=== PATIENT | female | born 1990 ===

== ENCOUNTER 2016-09-21 23:11 | Inpatient (IN) | payer MEDICAID, OTHER ==
[2016-09-21 23:12] VITALS: BMI 19.2
[2016-09-21] MEDS ORDERED: Sodium Chloride 0.9% 1,000 ML IV STA (23:46)
[2016-09-21] MEDS ORDERED: DiphenhydrAMINE 50 mg/ml Inj IVP STA (23:46)
[2016-09-21] MEDS ORDERED: Albuterol-Ipratrop 3 mg / 0.5 (3 ml) UD INH STA (23:50)
--- NOTE | 2016-09-21 23:50 | ED PDOC ---
HPI: General Adult Time Seen by Provider: 09/21/16 23:22 Chief Complaint (Nursing): Pain, Chronic Chief Complaint (Provider): LEFT sided peain History Per: Patient History/Exam Limitations: no limitations Onset/Duration Of Symptoms: Days (1), Gradual, Persistent Current Symptoms Are (Timing): Still Present Additional Complaint(s): LEFT shoulder and leg pain for 1 day c/w sickle cell crisis. Cough for 2 days productive of yellow sputum with rhinorrhea. Tactile fever per friend. Pain now intolerable despite ibuprofen and other meds. Pt reports pain is similar to previous episodes. PMD Rashaad Rojas ([place]) Hem/Onc [place] Past Medical History Reviewed: Historical Data, Nursing Documentation, Vital Signs Vital Signs: Last Vital Signs Temp 98.7 F 09/21/16 23:15 Pulse 106 H 09/21/16 23:15 Resp 16 09/21/16 23:15 BP 110/62 09/21/16 23:15 Pulse Ox 95 09/21/16 23:15 - Medical History PMH: Asthma, Sickle Cell Disease Denies: Depression, Multiple Sclerosis - Surgical History Surgical History: Cholecystectomy Other surgeries: Splenectomy. Port-a-cath placement - Family History Family History: States: Other Other Family History: Sickle Cell trait - Social History Current smoker - smoking cessation education provided: Yes Alcohol: Occasional Drugs: Cannabis - Immunization History Hx Tetanus Toxoid Vaccination: No Hx Influenza Vaccination: No Hx Pneumococcal Vaccination: No - Home Medications Home Medications: Ambulatory Orders Medication Instructions Recorded Fluticasone/Salmeterol 250/50 1 puff IH BID PRN 07/09/14 [Advair Diskus 250/50] Albuterol HFA [Ventolin HFA 90 2 puff IH Q6H PRN #0 inhaler 09/21/14 mcg/actuation (8 g)] Folic Acid 1 mg PO DAILY #0 tab 09/21/14 Hydroxyurea [Hydrea] 500 mg PO BID #0 cap 09/21/14 Albuterol Sulfate [Proair 90 mcg IH PRN PRN 06/05/16 Respiclick] Folic Acid 1 mg PO DAILY 06/05/16 Hydroxyurea [Hydrea] 1,000 mg PO DAILY 06/05/16 HYDROmorphone [Dilaudid 2 mg Tab] 2 mg PO Q6 PRN #10 tab 07/02/16 - Allergies Allergies/Adverse Reactions: Allergies Allergy/AdvReac Type Severity Reaction Status Date / Time latex Allergy RASH Verified 06/28/16 04:33 maryanne Allergy RASH Verified 06/28/16 04:33 meperidine HCl [From Demerol] Allergy RASH Verified 06/28/16 04:33 Review of Systems ROS Statement: Except As Marked, All Systems Reviewed And Found Negative (and as per HPI) Constitutional: Positive for: Fever, Chills, Weakness, Malaise ENT: Positive for: Nose Discharge. Negative for: Throat Pain Cardiovascular: Positive for: Chest Pain, Light Headedness. Negative for: Edema Respiratory: Positive for: Cough, Shortness of Breath, Pleuritic Pain, Wheezing. Negative for: Hemoptysis Gastrointestinal: Negative for: Nausea, Vomiting, Abdominal Pain Musculoskeletal: Positive for: Neck Pain, Shoulder Pain, Arm Pain, Back Pain, Leg Pain. Negative for: Hand Pain Physical Exam - Reviewed Nursing Documentation Reviewed: Yes Vital Signs Reviewed: Yes - Physical Exam Appears: Positive for: Non-toxic, In Acute Distress (appears tired) Skin: Positive for: Warm, Dry, Pallor Eye Exam: Positive for: EOMI, PERRL ENT: Negative for: Pharyngeal Erythema, Tonsillar Exudate Neck: Positive for: Painless ROM, Supple Cardiovascular/Chest: Positive for: Chest Non Tender, Tachycardia. Negative for : Murmur Respiratory: Positive for: Wheezing. Negative for: Accessory Muscle Use, Respiratory Distress Gastrointestinal/Abdominal: Positive for: Soft. Negative for: Tenderness Back: Positive for: Normal Inspection. Negative for: Vertebral Tenderness Extremity: Positive for: Normal ROM, Other (poor muscle bulk diffusely). Negative for: Pedal Edema Lymphatic: Negative for: Adenopathy Neurologic/Psych: Positive for: Alert. Negative for: Motor/Sensory Deficits - ECG O2 Sat by Pulse Oximetry: 95 Disposition - Clinical Impression Clinical Impression: Sickle cell crisis - Disposition Disposition: Transfer of Care Disposition Time: 00:00 Condition: STABLE Patient Signed Over To: Charles Gutierrez Handoff Comments: Pending ER workup, reassessment and final disposition
[2016-09-22] MEDS ORDERED: Albuterol-Ipratrop 3 mg / 0.5 (3 ml) UD ONE (00:38)
[2016-09-22] MEDS ORDERED: DiphenhydrAMINE 50 mg/ml Inj ONE ×3 (00:38→08:13)
[2016-09-22 00:45] LABS: BASO # 0.1 K/uL (0.0-0.2); BASO % 1.4 % (0.0-2.0); EOS # 0.3 K/uL (0.0-0.7); EOS % 2.6 % (0.0-4.0); HEMATOCRIT 21.5 % (34.0-47.0); LYMPH % 40.3 % (20.0-40.0); MEAN CELL VOLUME 101.3 fl (81.0-99.0); MEAN CORPUSCULAR HEMOGLOBIN 34.8 pg (27.0-31.0); MEAN CORPUSCULAR HGB CONC 34.4 g/dL (33.0-37.0); MEAN PLATELET VOLUME 7.5 fl (7.2-11.7); MONO # 1.2 K/uL (0.0-0.8); MONO % 12.3 % (0.0-10.0); NEUT # 4.3 K/uL (1.8-7.0); NEUT % 43.4 % (50.0-75.0); NRBC % 0.5 % (0.0-0.0); RED CELL DISTRIBUTION WIDTH 18.6 % (11.5-14.5); WHITE BLOOD COUNT 9.8 K/uL (4.8-10.8)
[2016-09-22 00:51] LABS: ALB/GLOB RATIO 1.4 (1.0-2.1); ALKALINE PHOSPHATASE 56 U/L (38-126); ALT/SGPT 56 U/L (9-52); AST/SGOT 61 U/L (14-36); BILIRUBIN,TOTAL 2.2 mg/dl (0.2-1.3); BLOOD UREA NITROGEN 9 mg/dl (7-17); CALCIUM 8.9 mg/dL (8.4-10.2); CARBON DIOXIDE 27 mmol/L (22-30); CHLORIDE 106 mmol/L (98-107); GFR AFRICAN-AMERICAN > 60; GLUCOSE,RANDOM 93 mg/dL (65-105); MAGNESIUM 2.4 MG/DL (1.6-2.3); PHOSPHOROUS 4.5 mg/dl (2.5-4.5); POTASSIUM 3.3 MMOL/L (3.6-5.0); SODIUM 141 mmol/l (132-148); TOTAL PROTEIN 6.6 G/DL (6.3-8.2)
--- NOTE | 2016-09-22 00:54 | ED PDOC ---
- Laboratory Results Result Diagrams: 09/21/16 00:38 09/21/16 00:38 - ECG O2 Sat by Pulse Oximetry: 95 (RA) Pulse Ox Interpretation: Normal Medical Decision Making Medical Decision Makin:00 Patient transferred over to provider by Dr. Mg. Pending ER workup. Initial Plan: * Dilaudid 2 mg IVP * Reevaluation 530: Pt. having continued sickle cell pain, reticulocyte count high. Patient persistently asking for 2mg IV dilaudid and for benadryl 25mg IV to be pushed before the dilaudid. Will admit to [facility] for pain management and sickle crisis. No PNA seen on CXR. Scribe Attestation: Documented by Hung Martínez, acting as a scribe for Charles Gutierrez MD. Provider Scribe Attestation: All medical record entries made by the Scribe were at my direction and personally dictated by me. I have reviewed the chart and agree that the record accurately reflects my personal performance of the history, physical exam, medical decision making, and the department course for this patient. I have also personally directed, reviewed, and agree with the discharge instructions and disposition. Disposition - Clinical Impression Clinical Impression: Sickle cell crisis - POA Present On Arrival: None - Disposition Disposition: Hospitalized as Observation Patient Disposition Time: 05:00 Condition: STABLE
[2016-09-22] MEDS ORDERED: DiphenhydrAMINE 50 mg/ml Inj IVP STA ×2 (01:47→05:17)
[2016-09-22] MEDS ORDERED: Sodium Chloride 0.9% 1,000 ML IV STA (05:17)
[2016-09-22] MEDS ORDERED: DiphenhydrAMINE 50 mg/ml Inj IVP PRN (06:01)
[2016-09-22] MEDS: Sodium Chloride 0.9% 1,000 ML IV SCH ×3 (07:52→19:35)
--- NOTE | 2016-09-22 07:54 | CP.PCM.HP ---
History of Present Illness - History of Present Illness History of Present Illness: pt admitted for bronchitis and SCC no f/c, nv/d. s/s x 2 days. pt left shoulder nad left leg pain. alco c/o diffuse itchiness. no f/c, n/v/d. Present on Admission - Present on Admission Any Indicators Present on Admission: No Review of Systems - Respiratory Respiratory: As Per HPI, Cough, Chest Congestion - Musculoskeletal Musculoskeletal: As Per HPI, Arthralgias Past Patient History - Infectious Disease Hx of Infectious Diseases: None - Past Medical History & Family History Past Medical History?: Yes - Past Social History Smoking Status: Current Some Days Smoker - CARDIAC Hx Atrial Fibrillation: No Hx Cardia Arrhythmia: No Hx Congestive Heart Failure: No Hx Hypercholesterolemia: No Hx Hypertension: No Hx Mitral Valve Prolapse: No Hx Pacemaker: No Hx Peripheral Edema: No - PULMONARY Hx Asthma: Yes - NEUROLOGICAL Hx Multiple Sclerosis: No - HEENT Hx HEENT Problems: Yes (eyeglasses) - RENAL Hx Chronic Kidney Disease: No Hx Kidney Stones: No - ENDOCRINE/METABOLIC Hx Hyperthyroidism: No Hx Hypothyroidism: No - HEMATOLOGICAL/ONCOLOGICAL Hx Sickle Cell Disease: Yes - INTEGUMENTARY Hx Dermatological Problems: No - MUSCULOSKELETAL/RHEUMATOLOGICAL Hx Arthritis: No Hx Fractures: No Hx Osteoporosis: No Hx Rheumatoid Arthritis: No - GASTROINTESTINAL Hx Crohn's Disease: No Hx Diverticulitis: No Hx Gall Bladder Disease: No Hx Gastritis: No Hx Pancreatitis: No - GENITOURINARY/GYNECOLOGICAL Hx Sexually Transmitted Disorders: No - PSYCHIATRIC Hx Depression: No Hx Substance Use: No - SURGICAL HISTORY Hx Cholecystectomy: Yes - ANESTHESIA Hx Anesthesia: Yes Hx Anesthesia Reactions: No Hx Malignant Hyperthermia: No Meds Allergies/Adverse Reactions: Allergies Allergy/AdvReac Type Severity Reaction Status Date / Time latex Allergy RASH Verified 06/28/16 04:33 maryanne Allergy RASH Verified 06/28/16 04:33 meperidine HCl [From Demerol] Allergy RASH Verified 06/28/16 04:33 Physical Exam - Constitutional Appears: Well, Non-toxic, No Acute Distress - Head Exam Head Exam: ATRAUMATIC, NORMAL INSPECTION, NORMOCEPHALIC - Eye Exam Eye Exam: EOMI, Normal appearance, PERRL Pupil Exam: NORMAL ACCOMODATION, PERRL - ENT Exam ENT Exam: Mucous Membranes Moist, Normal Exam - Neck Exam Neck exam: Positive for: Normal Inspection - Respiratory Exam Respiratory Exam: Clear to Auscultation Bilateral, NORMAL BREATHING PATTERN - Cardiovascular Exam Cardiovascular Exam: REGULAR RHYTHM, RRR, +S1, +S2 - GI/Abdominal Exam GI & Abdominal Exam: Normal Bowel Sounds, Soft. absent: Tenderness - Extremities Exam Extremities exam: Positive for: full ROM, normal capillary refill, normal inspection, pedal pulses present - Back Exam Back exam: NORMAL INSPECTION - Neurological Exam Neurological exam: Alert, CN II-XII Intact, Normal Gait, Oriented x3, Reflexes Normal - Psychiatric Exam Psychiatric exam: Normal Affect, Normal Mood - Skin Skin Exam: Dry, Intact, Normal Color, Warm Results - Vital Signs Recent Vital Signs: Last Vital Signs Temp 98.2 F 09/22/16 07:30 Pulse 88 09/22/16 07:30 Resp 16 09/22/16 07:30 BP 122/65 09/22/16 07:30 Pulse Ox 98 09/22/16 07:30 - Labs Result Diagrams: 09/21/16 00:38 09/21/16 00:38 Assessment & Plan (1) Sickle cell crisis Assessment and Plan: dilaudid, benadryl ivf heme/onc monitor bw Status: Acute (2) Bronchitis Assessment and Plan: zithromax albuterol Status: Acute (3) DVT prophylaxis Assessment and Plan: scd nad aheose ambulation Status: Acute Decision To Admit - Pt Status Changed To: Hospital Disposition Of: Inpatient - Admit Certification Admit to Inpatient:: After my assessment, the patient will require hospitalization for at least two midnights. This is because of the severity of symptoms shown, intensity of services needed, and/or the medical risk in this patient being treated as an outpatient. - . Bed Request Type: Med/Surg Admitting Physician: Kulwinder Vides
[2016-09-22] MEDS ORDERED: Fluticasone-Salmeterol 250-50mcg Diskus IH PRN (07:55)
[2016-09-22] MEDS ORDERED: Naloxone 0.4 mg/ml Inj (Adult) IVP ONE (09:31)
--- NOTE | 2016-09-22 09:33 | RAD ---
HISTORY: sickle cell crisis COMPARISON: No prior. TECHNIQUE: Chest PA and lateral FINDINGS: LUNGS: No change right subclavian MediPort. No focal consolidation PLEURA: No significant pleural effusion identified. No pneumothorax apparent. CARDIOVASCULAR: Normal. OSSEOUS STRUCTURES: No significant abnormalities. VISUALIZED UPPER ABDOMEN: . Re- demonstrated are small calcifications left upper quadrant of the abdomen possibly within the splenic parenchyma OTHER FINDINGS: None. IMPRESSION: No acute cardiopulmonary disease.
[2016-09-22] MEDS: Azithromycin 500 MG in Sodium Chloride 0.9% 250 ML IVPB SCH (13:36)
--- NOTE | 2016-09-22 13:39 | CP.PCM.CON ---
History of Present Illness - History of Present Illness History of Present Illness: 26 year old female with a history of sickle cell anemia admitted with sickle pain crisis and productive cough. The patient reports to increasing pain in her right leg and shoulder. This progressed to pain in her lower pack and hips. She also has been experiencing cough productive for yellow sputum. She feels this is aggravating her sickle cell pain. Past medical history: sickle cell anemia Past surgical history: portacath placement. Family history: Parents have sickle trait. Social history: Denies tobacco, alcohol, and illicit drug use. Allergies: meperidine. Review of systems: All remaining ROS including HEENT, cardiovascular, respiratory, gastrointestinal, genitourinary, musculoskeletal, dermatologic, neurologic, are psychiatric are negative unless mentioned in the HPI. Past Patient History - Infectious Disease Hx of Infectious Diseases: None - Past Medical History & Family History Past Medical History?: Yes - Past Social History Smoking Status: Current Some Days Smoker - CARDIAC Hx Atrial Fibrillation: No Hx Cardia Arrhythmia: No Hx Congestive Heart Failure: No Hx Hypercholesterolemia: No Hx Hypertension: No Hx Mitral Valve Prolapse: No Hx Pacemaker: No Hx Peripheral Edema: No - PULMONARY Hx Asthma: Yes - NEUROLOGICAL Hx Multiple Sclerosis: No - HEENT Hx HEENT Problems: Yes (eyeglasses) - RENAL Hx Chronic Kidney Disease: No Hx Kidney Stones: No - ENDOCRINE/METABOLIC Hx Hyperthyroidism: No Hx Hypothyroidism: No - HEMATOLOGICAL/ONCOLOGICAL Hx AIDS: No Hx Human Immunodeficiency Virus (HIV): No Hx Sickle Cell Disease: Yes - INTEGUMENTARY Hx Dermatological Problems: No - MUSCULOSKELETAL/RHEUMATOLOGICAL Hx Arthritis: No Hx Falls: No Hx Fractures: No Hx Osteoporosis: No Hx Rheumatoid Arthritis: No - GASTROINTESTINAL Hx Crohn's Disease: No Hx Diverticulitis: No Hx Gall Bladder Disease: No Hx Gastritis: No Hx Pancreatitis: No - GENITOURINARY/GYNECOLOGICAL Hx Sexually Transmitted Disorders: No - PSYCHIATRIC Hx Depression: No Hx Substance Use: No - SURGICAL HISTORY Hx Cholecystectomy: Yes - ANESTHESIA Hx Anesthesia: Yes Hx Anesthesia Reactions: No Hx Malignant Hyperthermia: No Meds Allergies/Adverse Reactions: Allergies Allergy/AdvReac Type Severity Reaction Status Date / Time latex Allergy RASH Verified 06/28/16 04:33 [email or web address] Allergy RASH Verified 06/28/16 04:33 meperidine HCl [From Demerol] Allergy RASH Verified 06/28/16 04:33 - Medications Medications: Current Medications Albuterol Sulfate (Albuterol 0.083% Inhal Ethel (2.5 Mg/3 Ml) Ud) 2.5 mg INH RQ4 PRN PRN Reason: Shortness of Breath Diphenhydramine HCl (Benadryl) 25 mg IVP Q6 PRN PRN Reason: itchiness Folic Acid (Folic Acid) 1 mg PO DAILY [facility] Last Admin: 09/22/16 10:03 Dose: 1 mg Hydromorphone HCl (Dilaudid) 2 mg IVP Q3 PRN PRN Reason: Pain, severe (8-10) Last Admin: 09/22/16 13:00 Dose: 2 mg Hydroxyurea (Hydrea) 500 mg PO BID [facility] Last Admin: 09/22/16 10:06 Dose: 500 mg Sodium Chloride (Sodium Chloride 0.9%) 1,000 mls @ 150 mls/hr IV .Q6H40M [facility] Stop: 09/23/16 06:01 Last Admin: 09/22/16 07:52 Dose: 150 mls/hr Azithromycin 500 mg/ Sodium (Chloride) 250 mls @ 250 mls/hr IVPB DAILY [facility] Miconazole Nitrate (Monistat 7 Vaginal Cream) 1 applic VAG HS [facility] Stop: 09/28/16 22:01 Fluticasone/Salmeterol (Advair Diskus 250/50) 1 puff IH BID PRN PRN Reason: sob Physical Exam - Constitutional Appears: Agitated - Head Exam Head Exam: ATRAUMATIC - Eye Exam Eye Exam: Normal appearance - ENT Exam ENT Exam: Mucous Membranes Dry - Respiratory Exam Respiratory Exam: Wheezes, NORMAL BREATHING PATTERN - Cardiovascular Exam Cardiovascular Exam: +S1, +S2 - GI/Abdominal Exam GI & Abdominal Exam: Normal Bowel Sounds - Extremities Exam Extremities exam: Positive for: normal inspection - Neurological Exam Neurological exam: Oriented x3 - Psychiatric Exam Psychiatric exam: Agitated, Anxious - Skin Skin Exam: Warm Results - Vital Signs Recent Vital Signs: Last Vital Signs Temp 97.7 F 09/22/16 10:28 Pulse 102 H 09/22/16 10:28 Resp 17 09/22/16 11:16 BP 108/72 09/22/16 10:28 Pulse Ox 98 09/22/16 11:16 - Labs Result Diagrams: 09/21/16 00:38 09/21/16 00:38 Assessment & Plan (1) Sickle cell crisis Assessment and Plan: IV fluids, pain meds, folic acid, 02 via NC no current transfusion indication Status: Acute (2) Sickle cell anemia Assessment and Plan: outpatient folic acid and hydrea Thank you for this interesting consult. Status: Acute
[2016-09-22] MEDS: DiphenhydrAMINE 50 mg/ml Inj IVP PRN ×2 (14:20→20:43)
[2016-09-22] MEDS: Miconazole 2% Vaginal 7 CREAM VAG SCH ×2 (14:32→22:16)
--- NOTE | 2016-09-22 18:51 | CARD ---
APPROVED REPORT EKG Measurement Heart [id number] <Conclusion> Normal sinus rhythm Normal ECG
[2016-09-22] MEDS: Albuterol 0.083% Inhal Sol (2.5 mg/3 mL) UD INH PRN (19:10)
[2016-09-23] MEDS: Sodium Chloride 0.9% 1,000 ML IV SCH ×2 (00:07→02:24)
[2016-09-23] MEDS: Vitamins A & D Oint UD Foilpak TOP SCH ×3 (00:07→16:06)
[2016-09-23] MEDS: Albuterol 0.083% Inhal Sol (2.5 mg/3 mL) UD INH PRN (01:09)
[2016-09-23] MEDS: DiphenhydrAMINE 50 mg/ml Inj IVP PRN ×4 (02:48→21:13)
--- NOTE | 2016-09-23 07:25 | CP.PCM.PN ---
Subjective - Date & Time of Evaluation Date of Evaluation: 09/23/16 Time of Evaluation: 07:25 - Subjective Subjective: pt still w/ joint pain and tichiness. has cough and had 1x fever last night. no n/v/d. c/o vaginal irritation-started on monostat. tolerating po. requestin pain meds q3h as ordered. Objective - Vital Signs/Intake and Output Vital Signs (last 24 hours): Temp Pulse Resp BP Pulse Ox 98.8 F 100 H 20 104/70 99 09/23/16 06:18 09/23/16 01:08 09/23/16 01:08 09/23/16 01:08 09/23/16 01:08 - Medications Medications: Current Medications Acetaminophen (Tylenol 325mg Tab) 650 mg PO Q4 PRN PRN Reason: Fever >100.4 F Last Admin: 09/23/16 05:18 Dose: 650 mg Albuterol Sulfate (Albuterol 0.083% Inhal Ethel (2.5 Mg/3 Ml) Ud) 2.5 mg INH RQ4 PRN PRN Reason: Shortness of Breath Last Admin: 09/23/16 01:09 Dose: 2.5 mg Diphenhydramine HCl (Benadryl) 25 mg IVP Q6 PRN PRN Reason: itchiness Last Admin: 09/23/16 02:48 Dose: 25 mg Folic Acid (Folic Acid) 1 mg PO DAILY [facility] Last Admin: 09/22/16 10:03 Dose: 1 mg Hydromorphone HCl (Dilaudid) 2 mg IVP Q3 PRN PRN Reason: Pain, severe (8-10) Last Admin: 09/23/16 05:12 Dose: 2 mg Hydroxyurea (Hydrea) 500 mg PO BID [facility] Last Admin: 09/22/16 18:21 Dose: 500 mg Azithromycin 500 mg/ Sodium (Chloride) 250 mls @ 250 mls/hr IVPB DAILY [facility] Last Admin: 09/22/16 13:36 Dose: 250 mls/hr Miconazole Nitrate (Monistat 7 Vaginal Cream) 1 applic VAG HS [facility] Stop: 09/28/16 22:01 Last Admin: 09/22/16 22:16 Dose: Not Given Ondansetron HCl (Zofran Inj) 4 mg IVP Q6 PRN PRN Reason: Nausea/Vomiting Last Admin: 09/23/16 03:24 Dose: 4 mg Fluticasone/Salmeterol (Advair Diskus 250/50) 1 puff IH BID PRN PRN Reason: sob Vitamin A (Vitamin A & D Oint Ud Foilpak) 1 ea TOP BID [facility] Last Admin: 09/23/16 00:07 Dose: 1 ea - Labs Labs: PT 10.8 SECONDS (9.6-11.2) 09/21/16 00:38 INR 1.04 (0.92-1.08) 09/21/16 00:38 APTT 26.0 SECONDS (23.3-32.5) 09/21/16 00:38 - Constitutional Appears: Well, Non-toxic, No Acute Distress - Head Exam Head Exam: ATRAUMATIC, NORMAL INSPECTION, NORMOCEPHALIC - Eye Exam Eye Exam: EOMI, Normal appearance, PERRL Pupil Exam: NORMAL ACCOMODATION, PERRL - ENT Exam ENT Exam: Mucous Membranes Moist, Normal Exam - Neck Exam Neck Exam: Full ROM, Normal Inspection. absent: Lymphadenopathy - Respiratory Exam Respiratory Exam: Clear to Ausculation Bilateral, NORMAL BREATHING PATTERN - Cardiovascular Exam Cardiovascular Exam: REGULAR RHYTHM, RRR, +S1, +S2. absent: Murmur - GI/Abdominal Exam GI & Abdominal Exam: Soft, Normal Bowel Sounds. absent: Tenderness - Extremities Exam Extremities Exam: Full ROM, Normal Capillary Refill, Normal Inspection. absent : Joint Swelling, Pedal Edema - Back Exam Back Exam: NORMAL INSPECTION - Neurological Exam Neurological Exam: Alert, Awake, CN II-XII Intact, Normal Gait, Oriented x3 - Psychiatric Exam Psychiatric exam: Normal Affect, Normal Mood - Skin Skin Exam: Dry, Intact, Normal Color, Warm Assessment and Plan (1) Sickle cell crisis Status: Acute (2) Bronchitis Assessment & Plan: febrile-tyelnol prn, albuterol prn, zithromax Status: Acute (3) DVT prophylaxis Status: Acute - Assessment and Plan (Free Text) Assessment: (1) Sickle cell crisis Assessment and Plan: dilaudid, benadryl ivf heme/onc monitor bw Status: Acute (2) Bronchitis Assessment and Plan: zithromax albuterol Status: Acute (3) DVT prophylaxis Assessment and Plan: scd nad aheose ambulation Status: Acute 4-vaginal itchiness-monostat
[2016-09-23 09:22] LABS: BASO # 0.1 K/uL (0.0-0.2); BASO % 0.6 % (0.0-2.0); EOS # 0.4 K/uL (0.0-0.7); EOS % 2.7 % (0.0-4.0); LYMPH # 5.3 K/uL (1.0-4.3); MEAN CELL VOLUME 97.4 fl (81.0-99.0); MEAN CORPUSCULAR HGB CONC 34.9 g/dL (33.0-37.0); MEAN PLATELET VOLUME 8.1 fl (7.2-11.7); MONO # 1.3 K/uL (0.0-0.8); MONO % 8.7 % (0.0-10.0); NRBC % 0.6 % (0.0-0.0); RED CELL DISTRIBUTION WIDTH 20.2 % (11.5-14.5)
[2016-09-23 09:27] LABS: ALB/GLOB RATIO 1.2 (1.0-2.1); ALKALINE PHOSPHATASE 47 U/L (38-126); ALT/SGPT 58 U/L (9-52); AST/SGOT 73 U/L (14-36); BILIRUBIN,TOTAL 2.6 mg/dl (0.2-1.3); BLOOD UREA NITROGEN 5 mg/dl (7-17); CALCIUM 8.1 mg/dL (8.4-10.2); CARBON DIOXIDE 23 mmol/L (22-30); CHLORIDE 111 mmol/L (98-107); GFR AFRICAN-AMERICAN > 60; GLUCOSE,RANDOM 84 mg/dL (65-105); POTASSIUM 3.8 MMOL/L (3.6-5.0); SODIUM 141 mmol/l (132-148); TOTAL PROTEIN 5.8 G/DL (6.3-8.2)
[2016-09-23 09:32] LABS: HEMATOCRIT 16.7 % (34.0-47.0)
[2016-09-23] MEDS: Azithromycin 500 MG in Sodium Chloride 0.9% 250 ML IVPB SCH (10:38)
--- NOTE | 2016-09-23 17:47 | CP.PCM.PN ---
Subjective - Date & Time of Evaluation Date of Evaluation: 09/23/16 Time of Evaluation: 12:40 - Subjective Subjective: Has pain and itching but improved from yesterday Objective - Vital Signs/Intake and Output Vital Signs (last 24 hours): Temp Pulse Resp BP Pulse Ox 98.4 F 97 H 18 105/69 100 09/23/16 16:32 09/23/16 16:32 09/23/16 16:32 09/23/16 16:32 09/23/16 16:32 - Medications Medications: Current Medications Acetaminophen (Tylenol 325mg Tab) 650 mg PO Q4 PRN PRN Reason: Fever >100.4 F Last Admin: 09/23/16 12:47 Dose: 650 mg Albuterol Sulfate (Albuterol 0.083% Inhal Ethel (2.5 Mg/3 Ml) Ud) 2.5 mg INH RQ4 PRN PRN Reason: Shortness of Breath Last Admin: 09/23/16 01:09 Dose: 2.5 mg Diphenhydramine HCl (Benadryl) 50 mg IVP Q6 PRN PRN Reason: itchiness Last Admin: 09/23/16 15:13 Dose: 50 mg Folic Acid (Folic Acid) 1 mg PO DAILY [facility] Last Admin: 09/23/16 10:38 Dose: 1 mg Hydromorphone HCl (Dilaudid) 2 mg IVP Q3 PRN PRN Reason: Pain, severe (8-10) Last Admin: 09/23/16 16:02 Dose: 2 mg Hydroxyurea (Hydrea) 500 mg PO BID [facility] Last Admin: 09/23/16 16:06 Dose: 500 mg Azithromycin 500 mg/ Sodium (Chloride) 250 mls @ 250 mls/hr IVPB DAILY [facility] Last Admin: 09/23/16 10:38 Dose: 250 mls/hr Miconazole Nitrate (Monistat 7 Vaginal Cream) 1 applic VAG HS [facility] Stop: 09/28/16 22:01 Last Admin: 09/22/16 22:16 Dose: Not Given Ondansetron HCl (Zofran Inj) 4 mg IVP Q6 PRN PRN Reason: Nausea/Vomiting Last Admin: 09/23/16 10:37 Dose: 4 mg Fluticasone/Salmeterol (Advair Diskus 250/50) 1 puff IH BID PRN PRN Reason: sob Vitamin A (Vitamin A & D Oint Ud Foilpak) 1 ea TOP BID [facility] Last Admin: 09/23/16 16:06 Dose: 1 ea - Labs Labs: 09/23/16 09:00 09/23/16 09:00 PT 10.8 SECONDS (9.6-11.2) 09/21/16 00:38 INR 1.04 (0.92-1.08) 09/21/16 00:38 APTT 26.0 SECONDS (23.3-32.5) 09/21/16 00:38 - Head Exam Head Exam: ATRAUMATIC - Eye Exam Eye Exam: Normal appearance - ENT Exam ENT Exam: Mucous Membranes Dry - Respiratory Exam Respiratory Exam: NORMAL BREATHING PATTERN - Cardiovascular Exam Cardiovascular Exam: +S1, +S2 - GI/Abdominal Exam GI & Abdominal Exam: Normal Bowel Sounds - Extremities Exam Extremities Exam: Normal Inspection Assessment and Plan (1) Sickle cell crisis Assessment & Plan: IV fluids, pain meds, folic acid, 02 via NC to receive 2U PRBC Status: Acute (2) Sickle cell anemia Assessment & Plan: folic acid and hydrea Status: Acute
[2016-09-23] MEDS: Miconazole 2% Vaginal 7 CREAM VAG SCH (21:34)
[2016-09-24] MEDS: DiphenhydrAMINE 50 mg/ml Inj IVP PRN ×2 (04:50→20:27)
--- NOTE | 2016-09-24 07:27 | CP.PCM.PN ---
Subjective - Date & Time of Evaluation Date of Evaluation: 09/24/16 Time of Evaluation: 07:26 - Subjective Subjective: m,ore comfortable today and calmer. no f/c, n/v/d. bw pending for after transfusion completed. delya of transfusion r/t antibodies. Objective - Vital Signs/Intake and Output Vital Signs (last 24 hours): Temp Pulse Resp BP Pulse Ox 98.5 F 81 19 103/71 100 09/24/16 06:02 09/24/16 06:02 09/24/16 06:02 09/24/16 06:02 09/24/16 06:02 - Medications Medications: Current Medications Acetaminophen (Tylenol 325mg Tab) 650 mg PO Q4 PRN PRN Reason: Fever >100.4 F Last Admin: 09/23/16 12:47 Dose: 650 mg Albuterol Sulfate (Albuterol 0.083% Inhal Ethel (2.5 Mg/3 Ml) Ud) 2.5 mg INH RQ4 PRN PRN Reason: Shortness of Breath Last Admin: 09/23/16 01:09 Dose: 2.5 mg Diphenhydramine HCl (Benadryl) 50 mg IVP Q6 PRN PRN Reason: itchiness Last Admin: 09/24/16 04:50 Dose: 50 mg Folic Acid (Folic Acid) 1 mg PO DAILY [facility] Last Admin: 09/23/16 10:38 Dose: 1 mg Hydromorphone HCl (Dilaudid) 2 mg IVP Q3 PRN PRN Reason: Pain, severe (8-10) Last Admin: 09/24/16 05:58 Dose: 2 mg Hydroxyurea (Hydrea) 500 mg PO BID [facility] Last Admin: 09/23/16 16:06 Dose: 500 mg Azithromycin 500 mg/ Sodium (Chloride) 250 mls @ 250 mls/hr IVPB DAILY [facility] Last Admin: 09/23/16 10:38 Dose: 250 mls/hr Miconazole Nitrate (Monistat 7 Vaginal Cream) 1 applic VAG HS [facility] Stop: 09/28/16 22:01 Last Admin: 09/23/16 21:34 Dose: 1 applic Ondansetron HCl (Zofran Inj) 4 mg IVP Q6 PRN PRN Reason: Nausea/Vomiting Last Admin: 09/24/16 02:13 Dose: 4 mg Fluticasone/Salmeterol (Advair Diskus 250/50) 1 puff IH BID PRN PRN Reason: sob Vitamin A (Vitamin A & D Oint Ud Foilpak) 1 ea TOP BID [facility] Last Admin: 09/23/16 16:06 Dose: 1 ea - Labs Labs: 09/23/16 09:00 09/23/16 09:00 PT 10.8 SECONDS (9.6-11.2) 09/21/16 00:38 INR 1.04 (0.92-1.08) 09/21/16 00:38 APTT 26.0 SECONDS (23.3-32.5) 09/21/16 00:38 - Constitutional Appears: Well, Non-toxic, No Acute Distress - Head Exam Head Exam: ATRAUMATIC, NORMAL INSPECTION, NORMOCEPHALIC - Eye Exam Eye Exam: EOMI, Normal appearance, PERRL Pupil Exam: NORMAL ACCOMODATION, PERRL - ENT Exam ENT Exam: Mucous Membranes Moist, Normal Exam - Neck Exam Neck Exam: Full ROM, Normal Inspection. absent: Lymphadenopathy - Respiratory Exam Respiratory Exam: Clear to Ausculation Bilateral, NORMAL BREATHING PATTERN - Cardiovascular Exam Cardiovascular Exam: REGULAR RHYTHM, +S1, +S2. absent: Murmur - GI/Abdominal Exam GI & Abdominal Exam: Soft, Normal Bowel Sounds. absent: Tenderness - Extremities Exam Extremities Exam: Full ROM, Normal Capillary Refill, Normal Inspection. absent : Joint Swelling, Pedal Edema - Back Exam Back Exam: NORMAL INSPECTION - Neurological Exam Neurological Exam: Alert, Awake, CN II-XII Intact, Normal Gait, Oriented x3 - Psychiatric Exam Psychiatric exam: Normal Affect, Normal Mood - Skin Skin Exam: Dry, Intact, Normal Color, Warm Assessment and Plan (1) Sickle cell crisis Status: Acute (2) Bronchitis Status: Acute (3) DVT prophylaxis Status: Acute - Assessment and Plan (Free Text) Assessment: (1) Sickle cell crisis Assessment and Plan: dilaudid, benadryl ivf heme/onc monitor bw inprogress 2 units prbc Status: Acute (2) Bronchitis Assessment and Plan: zithromax albuterol Status: Acute (3) DVT prophylaxis Assessment and Plan: scd nad aheose ambulation Status: Acute 4-vaginal itchiness-monostat
[2016-09-24] MEDS: Vitamins A & D Oint UD Foilpak TOP SCH ×2 (08:57→17:22)
[2016-09-24] MEDS: Azithromycin 500 MG in Sodium Chloride 0.9% 250 ML IVPB SCH (10:09)
[2016-09-24 16:47] LABS: MEAN CELL VOLUME 95.1 fl (81.0-99.0); MEAN CORPUSCULAR HEMOGLOBIN 32.8 pg (27.0-31.0); MEAN CORPUSCULAR HGB CONC 34.4 g/dL (33.0-37.0); RED CELL DISTRIBUTION WIDTH 19.1 % (11.5-14.5); WHITE BLOOD COUNT 11.5 K/uL (4.8-10.8)
[2016-09-24] MEDS: Sodium Chloride 0.9% 1,000 ML IV SCH (17:57)
[2016-09-24] MEDS: Miconazole 2% Vaginal 7 CREAM VAG SCH (22:39)
[2016-09-25] MEDS: Sodium Chloride 0.9% 1,000 ML IV SCH ×3 (00:37→13:12)
[2016-09-25] MEDS: DiphenhydrAMINE 50 mg/ml Inj IVP PRN ×3 (03:03→16:06)
[2016-09-25 08:49] LABS: BASO % 0.4 % (0.0-2.0); EOS # 0.5 K/uL (0.0-0.7); EOS % 4.6 % (0.0-4.0); HEMATOCRIT 25.4 % (34.0-47.0); LYMPH # 3.3 K/uL (1.0-4.3); MEAN CELL VOLUME 94.9 fl (81.0-99.0); MEAN CORPUSCULAR HEMOGLOBIN 33.6 pg (27.0-31.0); MEAN CORPUSCULAR HGB CONC 35.4 g/dL (33.0-37.0); MEAN PLATELET VOLUME 7.9 fl (7.2-11.7); MONO # 1.1 K/uL (0.0-0.8); MONO % 9.5 % (0.0-10.0); NEUT # 6.8 K/uL (1.8-7.0); NEUT % 57.5 % (50.0-75.0); PLATELET COUNT 412 K/uL (130-400); RED CELL DISTRIBUTION WIDTH 20.3 % (11.5-14.5); WHITE BLOOD COUNT 11.8 K/uL (4.8-10.8)
[2016-09-25 08:50] VITALS: RESP 20; O2SAT 93
[2016-09-25] MEDS: Vitamins A & D Oint UD Foilpak TOP SCH ×2 (08:56→16:42)
[2016-09-25] MEDS: Azithromycin 500 MG in Sodium Chloride 0.9% 250 ML IVPB SCH (08:56)
[2016-09-25 09:05] LABS: ALB/GLOB RATIO 1.3 (1.0-2.1); ALKALINE PHOSPHATASE 52 U/L (38-126); ALT/SGPT 71 U/L (9-52); AST/SGOT 75 U/L (14-36); BILIRUBIN,TOTAL 2.4 mg/dl (0.2-1.3); CALCIUM 8.5 mg/dL (8.4-10.2); CARBON DIOXIDE 24 mmol/L (22-30); CHLORIDE 106 mmol/L (98-107); GFR AFRICAN-AMERICAN > 60; GLUCOSE,RANDOM 81 mg/dL (65-105); POTASSIUM 3.5 MMOL/L (3.6-5.0); SODIUM 140 mmol/l (132-148)
[2016-09-25 09:14] LABS: BLOOD UREA NITROGEN < 2 mg/dl (7-17)
--- NOTE | 2016-09-25 09:35 | CP.PCM.DIS ---
Provider - Provider Date of Admission: 09/22/16 19:28 Attending physician: Kulwinder Vides MD Time Spent in preparation of Discharge (in minutes): 15 Diagnosis - Discharge Diagnosis (1) Sickle cell crisis Status: Acute (2) Bronchitis Status: Acute (3) DVT prophylaxis Status: Acute Hospital Course - Lab Results Lab Results: Most Recent Lab Values WBC 11.8 K/uL (4.8-10.8) H 09/25/16 07:30 RBC 2.68 Mil/uL (3.80-5.20) L 09/25/16 07:30 Hgb 9.0 g/dL (12.0-16.0) L 09/25/16 07:30 Hct 25.4 % (34.0-47.0) L 09/25/16 07:30 MCV 94.9 fl (81.0-99.0) 09/25/16 07:30 MCH 33.6 pg (27.0-31.0) H 09/25/16 07:30 MCHC 35.4 g/dL (33.0-37.0) 09/25/16 07:30 RDW 20.3 % (11.5-14.5) H 09/25/16 07:30 Plt Count 412 K/uL (130-400) H 09/25/16 07:30 MPV 7.9 fl (7.2-11.7) 09/25/16 07:30 Neut % (Auto) 57.5 % (50.0-75.0) 09/25/16 07:30 Lymph % (Auto) 28.0 % (20.0-40.0) 09/25/16 07:30 [place] % (Auto) 9.5 % (0.0-10.0) 09/25/16 07:30 Eos % (Auto) 4.6 % (0.0-4.0) H 09/25/16 07:30 Baso % (Auto) 0.4 % (0.0-2.0) 09/25/16 07:30 Neut # 6.8 K/uL (1.8-7.0) 09/25/16 07:30 Lymph # 3.3 K/uL (1.0-4.3) 09/25/16 07:30 [place] # 1.1 K/uL (0.0-0.8) H 09/25/16 07:30 Eos # 0.5 K/uL (0.0-0.7) 09/25/16 07:30 Baso # 0.0 K/uL (0.0-0.2) 09/25/16 07:30 Retic Count 12.0 % (0.5-1.5) H 09/25/16 07:30 PT 10.8 SECONDS (9.6-11.2) 09/21/16 00:38 INR 1.04 (0.92-1.08) 09/21/16 00:38 APTT 26.0 SECONDS (23.3-32.5) 09/21/16 00:38 Sodium 140 mmol/l (132-148) 09/25/16 07:30 Potassium 3.5 MMOL/L (3.6-5.0) L 09/25/16 07:30 Chloride 106 mmol/L (98-107) 09/25/16 07:30 Carbon Dioxide 24 mmol/L (22-30) 09/25/16 07:30 Anion Gap 14 (10-20) 09/25/16 07:30 BUN < 2 mg/dl (7-17) L 09/25/16 07:30 Creatinine 0.4 mg/dL (0.7-1.2) L 09/25/16 07:30 Est GFR ( Amer) > 60 09/25/16 07:30 Est GFR (Non-Af Amer) > 60 09/25/16 07:30 Random Glucose 81 mg/dL (65-105) 09/25/16 07:30 Lactic Acid < 0.5 MMOL/L (0.7-2.1) L 09/21/16 00:38 Calcium 8.5 mg/dL (8.4-10.2) 09/25/16 07:30 Phosphorus 4.5 mg/dl (2.5-4.5) 09/21/16 00:38 Magnesium 2.4 MG/DL (1.6-2.3) H 09/21/16 00:38 Total Bilirubin 2.4 mg/dl (0.2-1.3) H 09/25/16 07:30 AST 75 U/L (14-36) H 09/25/16 07:30 ALT 71 U/L (9-52) H D 09/25/16 07:30 Alkaline Phosphatase 52 U/L (38-126) 09/25/16 07:30 Troponin I < 0.0120 ng/mL (0.00-0.120) 09/21/16 00:38 Total Protein 6.0 G/DL (6.3-8.2) L 09/25/16 07:30 Albumin 3.3 g/dL (3.5-5.0) L 09/25/16 07:30 Globulin 2.6 gm/dL (2.2-3.9) 09/25/16 07:30 Albumin/Globulin Ratio 1.3 (1.0-2.1) 09/25/16 07:30 Influenza Typ A,B (EIA) Negative for flu a/b (NEGATIVE) 09/21/16 00:38 Blood Type O POSITIVE 09/23/16 11:32 Antibody Screen Negative 09/23/16 11:32 Crossmatch See Detail 09/23/16 11:32 BBK History Checked Patient has bt 09/23/16 11:32 Discharge Exam - Head Exam Head Exam: ATRAUMATIC, NORMAL INSPECTION, NORMOCEPHALIC - Eye Exam Eye Exam: EOMI, Normal appearance, PERRL Pupil Exam: NORMAL ACCOMODATION, PERRL - Respiratory Exam Respiratory Exam: Clear to PA & Lateral, NORMAL BREATHING PATTERN, UNREMARKABLE - Cardiovascular Exam Cardiovascular Exam: REGULAR RHYTHM, RRR, +S1, +S2 - GI/Abdominal Exam GI & Abdominal Exam: Normal Bowel Sounds, Soft, Unremarkable - Extremities Exam Extremities exam: full ROM, normal capillary refill, normal inspection, pedal pulses present - Neurological Exam Neurological exam: Alert, CN II-XII Intact, Normal Gait, Oriented x3, Reflexes Normal - Psychiatric Exam Psychiatric exam: Normal Affect, Normal Mood - Skin Skin Exam: Dry, Intact, Normal Color, Warm Discharge Plan - Discharge Medications Prescriptions: HYDROmorphone [Dilaudid] 2 mg PO Q6 PRN #10 tab PRN Reason: Pain, Severe (8-10) - Follow Up Plan Condition: STABLE Disposition: HOME/ ROUTINE Instructions: Sickle Cell Crisis (DC) Additional Instructions: f/u this provider tuesday, heme/onc as directed, rted prn, meds per med red final dx-bronchitis, scc, dehydration, hypokalemia Referrals: Kulwinder Vides MD [Staff Provider] - Rashaad Rojas DNP, TOOTH CLERK [Advanced Practice Nurse] -
[2016-09-25] MEDS ORDERED: Potassium Chloride 20 mEq ER Tab PO ONE (09:40)
[2016-09-25 11:13] LABS: EOSINOPHIL 6 % (0-7); NEUTROPHIL 58 % (42-75); NUCLEATED RED BLOOD CELL 4 % (0-0); TOTAL CELLS COUNTED 100
[2016-09-25 11:18] LABS: GIANT PLATELETS PRESENT; LARGE PLATELETS PRESENT; SPHEROCYTES SLIGHT
[2016-09-25 16:59] VITALS: BP 144/81; PULSE 74; TEMP 98.9
== END 2016-09-25 18:04 | disposition home or self-care (01) | DRG 395 ==
LOC: H.ER 23:11 → H.ERHOLD 09-22 05:52 → H.MEDSURG1 09-22 09:08 → OBSVTOIN 09-22 19:28
PROVIDERS: ADMIT Family Medicine; ATTEND Family Medicine
DX: D57.00 Hb-SS disease with crisis, unspecified (principal); E86.0 Dehydration; E87.6 Hypokalemia; J40 Bronchitis, not specified as acute or chronic; F17.200 Nicotine dependence, unspecified, uncomplicated; J45.909 Unspecified asthma, uncomplicated; Z91.040 Latex allergy status; Z91.018 Allergy to other foods

== ENCOUNTER 2016-11-26 16:24 | Inpatient (IN) | payer MEDICAID ==
[2016-11-26 16:25] VITALS: BMI 19.2
[2016-11-26] MEDS ORDERED: DiphenhydrAMINE 50 mg/ml Inj IVP STA ×2 (17:07→19:01)
[2016-11-26] MEDS ORDERED: Sodium Chloride 0.9% 1,000 ML IV STA (17:19)
--- NOTE | 2016-11-26 17:27 | ED PDOC ---
Upper Extremity Pain/Injury Time Seen by Provider: 11/26/16 16:53 Chief Complaint (Nursing): Upper Extremity Problem/Injury Chief Complaint (Provider): Upper Extremity Problem History Per: Patient History/Exam Limitations: no limitations Onset/Duration Of Symptoms: Days (1x) Current Symptoms Are (Timing): Still Present Severity: Moderate Additional Complaint(s): 26 year old female with a pertinent medical history of sickle cell disease and asthma presents to the ED with complaints of right shoulder pain, that radiates to her chest and down her back, which started last night and has been constant and gradually worsening since then. She reports taking ibuprofen with minimal relief and that her symptoms feel similar to previous episodes of sickle cell crisis. She reports that for the past 2x days, she has had a sore throat and a runny nose with subjective fevers and chills. She denies having any other medical complaints. PMD: Gaetano Vides MD and Rashaad Rojas APN Past Medical History Reviewed: Historical Data, Nursing Documentation, Vital Signs Vital Signs: Last Vital Signs Temp 98.8 F 11/26/16 16:31 Pulse 93 H 11/26/16 16:31 Resp 18 11/26/16 16:31 BP 105/59 L 11/26/16 16:31 Pulse Ox 100 11/26/16 16:31 - Medical History PMH: Asthma, Sickle Cell Disease Denies: Alzheimer's Disease, Anemia, Anxiety, Arthritis, Atrial Fibrillation , Bipolar Disorder, Bronchitis, CAD, Cardia Arrhythmia, CHF, COPD, Crohn's Disease, Dementia, Depression, Diabetes, Diverticulitis, Emphysema, Fractures, Gastritis, Gall Bladder Disease, Hepatitis, HIV, HTN, Hypercholesterolemia, Hyperthyroidism, Hypothyroidism, Kidney Stones, Migraine, Mitral Valve Prolapse , Multiple Sclerosis, Osteoporosis, Pancreatitis, Paranoia, Parkinson's Disease , Peripheral Edema, Pneumonia, Post Traumatic Stress Disorder, Pulmonary Embolism, Chronic Kidney Disease, Rheumatoid Arthritis, Schizophrenia, Seizures , Sexually Transmitted Disease, Sleep Apnea, TIA Other PMH: above negative history pulled from previous charts - Surgical History Surgical History: Cholecystectomy Denies: Appendectomy, CABG, Carotid Endarterectomy, Coronary Stent, Pacemaker , Tonsillectomy Other surgeries: above negative history pulled from previous charts - Family History Family History: States: Unknown Family Hx - Social History Current smoker - smoking cessation education provided: No Alcohol: None Drugs: Denies - Immunization History Hx Tetanus Toxoid Vaccination: No Hx Influenza Vaccination: No Hx Pneumococcal Vaccination: No - Home Medications Home Medications: Ambulatory Orders Medication Instructions Recorded Fluticasone/Salmeterol 250/50 1 puff IH BID PRN 07/09/14 [Advair Diskus 250/50] Hydroxyurea [Hydrea] 500 mg PO BID #0 cap 09/21/14 Folic Acid 1 mg PO DAILY 06/05/16 HYDROmorphone [Dilaudid] 2 mg PO Q6 PRN #10 tab 09/25/16 - Allergies Allergies/Adverse Reactions: Allergies Allergy/AdvReac Type Severity Reaction Status Date / Time latex Allergy RASH Verified 06/28/16 04:33 maryanne Allergy RASH Verified 06/28/16 04:33 meperidine HCl [From Demerol] Allergy RASH Verified 06/28/16 04:33 Review of Systems ROS Statement: Except As Marked, All Systems Reviewed And Found Negative (and as per HPI) Constitutional: Positive for: Fever (subjective), Chills ENT: Positive for: Nose Discharge (non bloody), Throat Pain Musculoskeletal: Positive for: Shoulder Pain (right shoulder pain which radiates to her chest and down her back) Physical Exam - Reviewed Nursing Documentation Reviewed: Yes Vital Signs Reviewed: Yes - Physical Exam Appears: Positive for: Non-toxic, In Acute Distress (mild painful distress, slim build and appears younger than given age) Head Exam: Positive for: ATRAUMATIC, NORMOCEPHALIC Skin: Positive for: Warm, Dry, Pallor Eye Exam: Positive for: EOMI, PERRL, Scleral icterus ENT: Positive for: Tonsillar Swelling (bilaterally enlarged and erythematous tonsills), Other (dry mucous membranes). Negative for: Tonsillar Exudate Neck: Positive for: Painless ROM, Supple Cardiovascular/Chest: Positive for: Regular Rate, Rhythm. Negative for: Edema Respiratory: Positive for: Normal Breath Sounds. Negative for: Respiratory Distress Pulses-Radial (R): 2+ Gastrointestinal/Abdominal: Positive for: Soft. Negative for: Tenderness, Distended Back: Positive for: Normal Inspection. Negative for: Muscle Spasm Extremity: Positive for: Other (right shoulder: no deformity, no swelling. Limited passive and active range of motion due to pain. 5/5 strength in right hand, light touch in tact. (+) poor muscle bulk diffusely). Negative for: Deformity ('), Swelling Lymphatic: Negative for: Adenopathy Neurologic/Psych: Positive for: Alert, Oriented (3x). Negative for: Motor/ Sensory Deficits - Laboratory Results Result Diagrams: 11/27/16 06:00 11/27/16 06:00 - ECG O2 Sat by Pulse Oximetry: 100 (RA) Pulse Ox Interpretation: Normal Medical Decision Making Medical Decision Makin:53 Initial impression: 26 year old female with sickle cell crisis due to anemia and dehydration. Necrosis of the right shoulder use to electrolyte abnormality. Initial plan: * XRay chest 2 views * XRay shoulder right * benadryl 25mg IVP * dilaudid 1mg IV * IV NS 1,000ml IV 1,000mls/hr * influenza AB * rapid strep group A antigen * urine * bloodwork * reevaluation Labs demonstrate leukocytosis, anemia and elevated sed rate. On reeval at 1900 pt still reporting pain. CXR with no acute findings (no infiltrate no effusion) RIGHT shoulder: No fx/dislocation PAULINO Rojas CLINICAL DATA ANALYST for Dr Vides for admission for sickle cell crisis. Scribe Attestation: Documented by Monica Gonzalez, acting as a scribe for Nazia Mg MD. Provider Scribe Attestation: All medical record entries made by the Scribe were at my direction and personally dictated by me. I have reviewed the chart and agree that the record accurately reflects my personal performance of the history, physical exam, medical decision making, and the department course for this patient. I have also personally directed, reviewed, and agree with the discharge instructions and disposition. Disposition - Clinical Impression Clinical Impression: Sickle cell crisis Counseled Patient/Family Regarding: Studies Performed, Diagnosis - Disposition Disposition Time: 19:00 Condition: SERIOUS - Pt Status Changed To: Hospital Disposition Of: Inpatient - Admit Certification Admit to Inpatient:: After my assessment, the patient will require hospitalization for at least two midnights. This is because of the severity of symptoms shown, intensity of services needed, and/or the medical risk in this patient being treated as an outpatient. - POA Present On Arrival: None
[2016-11-26] MEDS ORDERED: DiphenhydrAMINE 50 mg/ml Inj ONE (17:29)
[2016-11-26] MEDS ORDERED: HYDROmorphone 0.5 mg/0.5 ml ISec ONE (17:30)
[2016-11-26 17:53] LABS: BASO # 0.1 K/uL (0.0-0.2); BASO % 0.2 % (0.0-2.0); EOS # 0.3 K/uL (0.0-0.7); EOS % 0.9 % (0.0-4.0); LYMPH # 3.5 K/uL (1.0-4.3); MEAN CORPUSCULAR HEMOGLOBIN 33.6 pg (27.0-31.0); MEAN CORPUSCULAR HGB CONC 33.6 g/dL (33.0-37.0); MEAN PLATELET VOLUME 8.2 fl (7.2-11.7); MONO % 6.8 % (0.0-10.0); NEUT # 23.6 K/uL (1.8-7.0); NEUT % 80.1 % (50.0-75.0); NRBC % 0.1 % (0.0-0.0); RBC 2.68 Mil/uL (3.80-5.20); RED CELL DISTRIBUTION WIDTH 18.4 % (11.5-14.5); WHITE BLOOD COUNT 29.5 K/uL (4.8-10.8)
[2016-11-26 17:55] LABS: SQUAMOUS EPITHIAL 1 /hpf (0-5); URINE BILIRUBIN NEGATIVE (NEGATIVE); URINE BLOOD NEGATIVE (NEGATIVE); URINE CLARITY CLEAR (Clear); URINE COLOR YELLOW (YELLOW); URINE GLUCOSE (UA) NEG (Normal); URINE LEUKOCYTE ESTERASE NEG Leu/uL (Negative); URINE NITRATE NEGATIVE (NEGATIVE); URINE PROTEIN NEGATIVE (NEGATIVE); URINE UROBILINOGEN 0.2-1.0 mg/dL (0.2-1.0)
[2016-11-26 18:07] LABS: ALB/GLOB RATIO 1.7 (1.0-2.1); ALBUMIN 4.7 g/dL (3.5-5.0); ALT/SGPT 44 U/L (9-52); AST/SGOT 39 U/L (14-36); BLOOD UREA NITROGEN 8 mg/dl (7-17); CALCIUM 9.3 mg/dL (8.4-10.2); GFR AFRICAN-AMERICAN > 60; GFR NON-AFRICAN AMERICAN > 60
[2016-11-26 18:42] LABS: BARBITURATES, UR NEGATIVE (NEGATIVE); BENZODIAZEPINES, UR NEGATIVE (NEGATIVE); OPIATES, UR NEGATIVE (NEGATIVE); PHENCYCLIDINE, UR NEGATIVE (NEGATIVE)
[2016-11-26] MEDS ORDERED: Fluticasone-Salmeterol 250-50mcg Diskus IH PRN (19:35)
[2016-11-26] MEDS ORDERED: Benzocaine/Menthol (Cepacol) Lozenge PO PRN (19:35)
[2016-11-26] MEDS: Sodium Chloride 0.9% 1,000 ML IV SCH (20:15)
[2016-11-26] MEDS: DiphenhydrAMINE 50 mg/ml Inj IVP PRN (22:46)
[2016-11-27] MEDS: Sodium Chloride 0.9% 1,000 ML IV SCH ×3 (02:00→17:57)
[2016-11-27] MEDS: DiphenhydrAMINE 50 mg/ml Inj IVP PRN ×3 (05:10→18:03)
--- NOTE | 2016-11-27 07:56 | CP.PCM.HP ---
History of Present Illness - History of Present Illness History of Present Illness: pt admitted for sore throat and SCC. no f/c, n/v/d. pt states that pain and st started thurs night into yesterday am. bw noted. cxr reviewed and pendign final report. b/l tonsil edematous, w/ exudate Present on Admission - Present on Admission Any Indicators Present on Admission: No Review of Systems - EENT Nose/Mouth/Throat: As Per HPI, Sore Throat - Musculoskeletal Musculoskeletal: As Per HPI, Arthralgias Past Patient History - Infectious Disease Hx of Infectious Diseases: None - Past Medical History & Family History Past Medical History?: Yes - Past Social History Smoking Status: Light Smoker < 10 Cigarettes Daily - CARDIAC Hx Cardiac Disorders: No Hx Atrial Fibrillation: No Hx Cardia Arrhythmia: No Hx Congestive Heart Failure: No Hx Hypercholesterolemia: No Hx Hypertension: No Hx Mitral Valve Prolapse: No Hx Pacemaker: No Hx Peripheral Edema: No - PULMONARY Hx Respiratory Disorders: Yes Hx Asthma: Yes Hx Bronchitis: No Hx Chronic Obstructive Pulmonary Disease (COPD): No Hx Emphysema: No Hx Pneumonia: No Hx Pulmonary Embolism: No Hx Sleep Apnea: No - NEUROLOGICAL Hx Neurological Disorder: No Hx Alzheimer's Disease: No Hx Dementia: No Hx Migraine: No Hx Multiple Sclerosis: No Hx Parkinson's Disease: No Hx Seizures: No Hx Transient Ischemic Attacks (TIA): No - HEENT Hx HEENT Problems: Yes (eyeglasses) - RENAL Hx Chronic Kidney Disease: No - ENDOCRINE/METABOLIC Hx Endocrine Disorders: No Hx Hyperthyroidism: No Hx Hypothyroidism: No - HEMATOLOGICAL/ONCOLOGICAL Hx Blood Disorders: Yes Hx Anemia: No Hx Human Immunodeficiency Virus (HIV): No Hx Sickle Cell Disease: Yes - INTEGUMENTARY Hx Dermatological Problems: No - MUSCULOSKELETAL/RHEUMATOLOGICAL Hx Musculoskeletal Disorders: No Hx Falls: No - GASTROINTESTINAL Hx Gastrointestinal Disorders: No Hx Crohn's Disease: No Hx Diverticulitis: No Hx Gall Bladder Disease: No Hx Gastritis: No Hx Pancreatitis: No - GENITOURINARY/GYNECOLOGICAL Hx Genitourinary Disorders: No Hx Sexually Transmitted Disorders: No - PSYCHIATRIC Hx Psychophysiologic Disorder: No Hx Anxiety: No Hx Bipolar Disorder: No Hx Depression: No Hx Paranoia: No Hx Post Traumatic Stress Disorder: No Hx Schizophrenia: No - SURGICAL HISTORY Hx Surgeries: Yes Hx Appendectomy: No Hx Carotid Endarterectomy: No Hx Cholecystectomy: Yes Hx Coronary Artery Bypass Graft: No Hx Coronary Stent: No Hx Tonsillectomy: No - ANESTHESIA Hx Anesthesia: Yes Hx Anesthesia Reactions: No Hx Malignant Hyperthermia: No Meds Allergies/Adverse Reactions: Allergies Allergy/AdvReac Type Severity Reaction Status Date / Time latex Allergy RASH Verified 06/28/16 04:33 maryanne Allergy RASH Verified 06/28/16 04:33 meperidine HCl [From Demerol] Allergy RASH Verified 06/28/16 04:33 Physical Exam - Constitutional Appears: Well, Non-toxic, No Acute Distress - Head Exam Head Exam: ATRAUMATIC, NORMAL INSPECTION, NORMOCEPHALIC - Eye Exam Eye Exam: EOMI, Normal appearance, PERRL Pupil Exam: NORMAL ACCOMODATION, PERRL - ENT Exam ENT Exam: Mucous Membranes Moist, Normal Exam Additional comments: throat w/ exudate, erythema - Neck Exam Neck exam: Positive for: Normal Inspection - Respiratory Exam Respiratory Exam: Clear to Auscultation Bilateral, NORMAL BREATHING PATTERN - Cardiovascular Exam Cardiovascular Exam: REGULAR RHYTHM, RRR - GI/Abdominal Exam GI & Abdominal Exam: Normal Bowel Sounds, Soft. absent: Tenderness - Extremities Exam Extremities exam: Positive for: full ROM, normal capillary refill, normal inspection, pedal pulses present - Back Exam Back exam: NORMAL INSPECTION - Neurological Exam Neurological exam: Alert, CN II-XII Intact, Normal Gait, Oriented x3, Reflexes Normal - Psychiatric Exam Psychiatric exam: Normal Affect, Normal Mood - Skin Skin Exam: Dry, Intact, Normal Color, Warm Results - Vital Signs Recent Vital Signs: Last Vital Signs Temp 97.9 F 11/27/16 07:30 Pulse 75 11/27/16 07:30 Resp 18 11/27/16 07:30 BP 104/68 11/27/16 07:30 Pulse Ox 98 11/27/16 07:30 - Labs Result Diagrams: 11/26/16 17:15 11/26/16 17:15 Assessment & Plan (1) Pharyngitis Assessment and Plan: augmentin Status: Acute (2) DVT prophylaxis Assessment and Plan: scd and aehose ambulation Status: Acute (3) Sickle cell crisis Assessment and Plan: dilaudid, iv or pr heme/onc f/u b/w ivf benadryl Status: Acute Decision To Admit - Pt Status Changed To: Hospital Disposition Of: Inpatient - Admit Certification Admit to Inpatient:: After my assessment, the patient will require hospitalization for at least two midnights. This is because of the severity of symptoms shown, intensity of services needed, and/or the medical risk in this patient being treated as an outpatient. - . Bed Request Type: Med/Surg Admitting Physician: Kulwinder Vides
[2016-11-27 08:13] LABS: BASO # 0.1 K/uL (0.0-0.2); BASO % 0.2 % (0.0-2.0); EOS # 0.4 K/uL (0.0-0.7); EOS % 1.6 % (0.0-4.0); HEMOGLOBIN 7.7 g/dL (12.0-16.0); LYMPH # 3.1 K/uL (1.0-4.3); LYMPH % 11.6 % (20.0-40.0); MEAN CELL VOLUME 98.9 fl (81.0-99.0); MEAN CORPUSCULAR HEMOGLOBIN 33.5 pg (27.0-31.0); MEAN CORPUSCULAR HGB CONC 33.9 g/dL (33.0-37.0); MEAN PLATELET VOLUME 8.5 fl (7.2-11.7); MONO # 1.6 K/uL (0.0-0.8); MONO % 6.2 % (0.0-10.0); NEUT # 21.2 K/uL (1.8-7.0); NEUT % 80.4 % (50.0-75.0); NRBC % 0.2 % (0.0-0.0); RBC 2.3 Mil/uL (3.80-5.20); RED CELL DISTRIBUTION WIDTH 17.9 % (11.5-14.5); WHITE BLOOD COUNT 26.3 K/uL (4.8-10.8)
[2016-11-27 08:40] LABS: ALB/GLOB RATIO 1.6 (1.0-2.1); ALBUMIN 4.1 g/dL (3.5-5.0); ALT/SGPT 47 U/L (9-52); AST/SGOT 41 U/L (14-36); BLOOD UREA NITROGEN 10 mg/dl (7-17); CALCIUM 8.4 mg/dL (8.4-10.2); GFR AFRICAN-AMERICAN > 60; GFR NON-AFRICAN AMERICAN > 60
--- NOTE | 2016-11-27 10:54 | RAD ---
PROCEDURE: Radiographs of the Right Shoulder HISTORY: pain COMPARISON: Comparison made with prior radiographs of the right shoulder dated 02/04/2014. FINDINGS: BONES: Normal. No fracture. JOINTS: Normal. Glenohumeral and acromioclavicular joints preserved. No osteoarthritis. SOFT TISSUES: Normal. OTHER FINDINGS: In situ right subclavian MediPort with tip in the SVC IMPRESSION: Normal radiographs of the right shoulder. In situ right subclavian MediPort as above
--- NOTE | 2016-11-27 10:56 | RAD ---
HISTORY: chest pain sickle cell COMPARISON: Comparison chest 09/22/2016 TECHNIQUE: Chest PA and lateral FINDINGS: LUNGS: No active pulmonary disease. PLEURA: No significant pleural effusion identified. No pneumothorax apparent. CARDIOVASCULAR: Normal. OSSEOUS STRUCTURES: No significant abnormalities. VISUALIZED UPPER ABDOMEN: Again noted is a calcification in the left upper quadrant of the abdomen unchanged from prior exam OTHER FINDINGS: None. IMPRESSION: No active disease.
[2016-11-27] MEDS: Amoxicillin-Clav 875-125 mg Tab PO SCH ×2 (11:33→20:14)
[2016-11-28] MEDS: DiphenhydrAMINE 50 mg/ml Inj IVP PRN ×4 (00:42→19:55)
--- NOTE | 2016-11-28 03:34 | CP.PCM.CON ---
History of Present Illness - History of Present Illness History of Present Illness: 26 year old female with a history of sickle cell anemia admitted with sickle pain crisis and sore throat. The patient reports to increasing pain exacerbated by sore throat. This progressed to pain in her lower pack and hips. She denies shortness of pain and chest pain. Past medical history: sickle cell anemia Past surgical history: portacath placement. Family history: Parents have sickle trait. Social history: Denies tobacco, alcohol, and illicit drug use. Allergies: meperidine. Review of systems: All remaining ROS including HEENT, cardiovascular, respiratory, gastrointestinal, genitourinary, musculoskeletal, dermatologic, neurologic, are psychiatric are negative unless mentioned in the HPI. Past Patient History - Infectious Disease Hx of Infectious Diseases: None - Past Medical History & Family History Past Medical History?: Yes - Past Social History Alcohol: None Drugs: Denies - CARDIAC Hx Atrial Fibrillation: No Hx Cardia Arrhythmia: No Hx Congestive Heart Failure: No Hx Hypercholesterolemia: No Hx Hypertension: No Hx Mitral Valve Prolapse: No Hx Pacemaker: No Hx Peripheral Edema: No - PULMONARY Hx Asthma: Yes Hx Bronchitis: No Hx Chronic Obstructive Pulmonary Disease (COPD): No Hx Emphysema: No Hx Pneumonia: No Hx Pulmonary Embolism: No Hx Sleep Apnea: No - NEUROLOGICAL Hx Alzheimer's Disease: No Hx Dementia: No Hx Migraine: No Hx Multiple Sclerosis: No Hx Parkinson's Disease: No Hx Seizures: No Hx Transient Ischemic Attacks (TIA): No - HEENT Hx HEENT Problems: Yes (eyeglasses) - RENAL Hx Chronic Kidney Disease: No Hx Kidney Stones: No - ENDOCRINE/METABOLIC Hx Hyperthyroidism: No Hx Hypothyroidism: No - HEMATOLOGICAL/ONCOLOGICAL Hx Anemia: No Hx Human Immunodeficiency Virus (HIV): No Hx Sickle Cell Disease: Yes - INTEGUMENTARY Hx Dermatological Problems: No - MUSCULOSKELETAL/RHEUMATOLOGICAL Hx Arthritis: No Hx Fractures: No Hx Osteoporosis: No Hx Rheumatoid Arthritis: No - GASTROINTESTINAL Hx Crohn's Disease: No Hx Diverticulitis: No Hx Gall Bladder Disease: No Hx Gastritis: No Hx Pancreatitis: No - GENITOURINARY/GYNECOLOGICAL Hx Sexually Transmitted Disorders: No - PSYCHIATRIC Hx Anxiety: No Hx Bipolar Disorder: No Hx Depression: No Hx Paranoia: No Hx Post Traumatic Stress Disorder: No Hx Schizophrenia: No - SURGICAL HISTORY Hx Appendectomy: No Hx Carotid Endarterectomy: No Hx Cholecystectomy: Yes Hx Coronary Artery Bypass Graft: No Hx Coronary Stent: No Hx Tonsillectomy: No - ANESTHESIA Hx Anesthesia: Yes Hx Anesthesia Reactions: No Hx Malignant Hyperthermia: No Meds Allergies/Adverse Reactions: Allergies Allergy/AdvReac Type Severity Reaction Status Date / Time latex Allergy RASH Verified 06/28/16 04:33 [email or web address] Allergy RASH Verified 06/28/16 04:33 meperidine HCl [From Demerol] Allergy RASH Verified 06/28/16 04:33 - Medications Medications: Current Medications Amoxicillin/Clavulanate Potassium (Augmentin 875 Mg-125 Mg Tab) 1 tab PO Q12 [facility] Last Admin: 11/27/16 20:14 Dose: 1 tab Benzocaine/Menthol (Cepacol Sore Throat) 1 junior PO Q2 PRN PRN Reason: Sore Throat Last Admin: 11/27/16 09:33 Dose: 1 junior Diphenhydramine HCl (Benadryl) 50 mg IVP Q6 PRN PRN Reason: Itching / Pruritus Last Admin: 11/28/16 00:42 Dose: 50 mg Folic Acid (Folic Acid) 1 mg PO DAILY [facility] Last Admin: 11/27/16 09:33 Dose: 1 mg Hydrocortisone (Cortizone 1% Cream) 1 applic TOP TID PRN PRN Reason: Itching / Pruritus Hydromorphone HCl (Dilaudid) 2 mg IVP Q3H PRN PRN Reason: Pain, severe (8-10) Last Admin: 11/28/16 00:35 Dose: 2 mg Hydromorphone HCl (Dilaudid) 2 mg PO Q6 PRN PRN Reason: Pain, moderate (4-7) Hydroxyurea (Hydrea) 500 mg PO BID [facility] Last Admin: 11/27/16 17:57 Dose: 500 mg Fluticasone/Salmeterol (Advair Diskus 250/50) 1 puff IH BID PRN PRN Reason: sob Physical Exam - Head Exam Head Exam: ATRAUMATIC - Eye Exam Eye Exam: Normal appearance - ENT Exam ENT Exam: Mucous Membranes Dry - Respiratory Exam Respiratory Exam: NORMAL BREATHING PATTERN - Cardiovascular Exam Cardiovascular Exam: +S1, +S2 - GI/Abdominal Exam GI & Abdominal Exam: Normal Bowel Sounds - Extremities Exam Extremities exam: Positive for: normal inspection - Neurological Exam Neurological exam: Oriented x3 - Psychiatric Exam Psychiatric exam: Normal Affect, Normal Mood - Skin Skin Exam: Warm Results - Vital Signs Recent Vital Signs: Last Vital Signs Temp 99.6 F 11/27/16 17:03 Pulse 91 H 11/27/16 17:03 Resp 20 11/27/16 17:03 BP 99/62 L 11/27/16 17:03 Pulse Ox 94 L 11/27/16 17:03 - Labs Result Diagrams: 11/27/16 06:00 11/27/16 06:00 Labs: Laboratory Results - last 24 hr 11/27/16 11/27/16 06:00 06:00 WBC 26.3 H RBC 2.30 L Hgb 7.7 L Hct 22.8 L MCV 98.9 MCH 33.5 H MCHC 33.9 RDW 17.9 H Plt Count 462 H MPV 8.5 Neut % (Auto) 80.4 H Lymph % (Auto) 11.6 L [place] % (Auto) 6.2 Eos % (Auto) 1.6 Baso % (Auto) 0.2 Neut # 21.2 H Lymph # 3.1 [place] # 1.6 H Eos # 0.4 Baso # 0.1 Sodium 141 Potassium 3.9 Chloride 108 H Carbon Dioxide 24 Anion Gap 13 BUN 10 Creatinine 0.6 L Est GFR ( Amer) > 60 Est GFR (Non-Af Amer) > 60 Random Glucose 78 Calcium 8.4 Total Bilirubin 2.7 H AST 41 H ALT 47 Alkaline Phosphatase 58 Total Protein 6.7 Albumin 4.1 Globulin 2.6 Albumin/Globulin Ratio 1.6 Assessment & Plan (1) Sickle cell pain crisis Assessment and Plan: IV fluids, pain meds, folic acid, hydrea, 02 via [place] Status: Acute (2) Leukocytosis Assessment and Plan: on antibiotics Status: Acute (3) Iron overload due to repeated red blood cell transfusions Assessment and Plan: outpatient chelation Status: Acute (4) Sickle cell anemia Assessment and Plan: folic acid and hydrea Thank you for this interesting consult. Status: Acute
[2016-11-28 07:56] LABS: ALB/GLOB RATIO 1.5 (1.0-2.1); ALBUMIN 3.9 g/dL (3.5-5.0); ALT/SGPT 38 U/L (9-52); AST/SGOT 43 U/L (14-36); BLOOD UREA NITROGEN 5 mg/dl (7-17); CALCIUM 8.6 mg/dL (8.4-10.2); GFR AFRICAN-AMERICAN > 60; GFR NON-AFRICAN AMERICAN > 60
[2016-11-28] MEDS: Amoxicillin-Clav 875-125 mg Tab PO SCH ×2 (08:44→21:08)
[2016-11-28 09:37] LABS: BASO # 0.1 K/uL (0.0-0.2); BASO % 0.8 % (0.0-2.0); EOS % 5.3 % (0.0-4.0); HEMOGLOBIN 6.7 g/dL (12.0-16.0); LYMPH % 21.5 % (20.0-40.0); MEAN CORPUSCULAR HGB CONC 35.5 g/dL (33.0-37.0); MEAN PLATELET VOLUME 8.3 fl (7.2-11.7); MONO # 1.6 K/uL (0.0-0.8); MONO % 8.4 % (0.0-10.0); NRBC % 0.3 % (0.0-0.0); RBC 1.98 Mil/uL (3.80-5.20); RED CELL DISTRIBUTION WIDTH 18.1 % (11.5-14.5); WHITE BLOOD COUNT 18.7 K/uL (4.8-10.8)
[2016-11-28 09:38] LABS: MEAN CELL VOLUME 95.7 fl (81.0-99.0)
--- NOTE | 2016-11-28 19:11 | CP.PCM.PN ---
Subjective - Date & Time of Evaluation Date of Evaluation: 11/28/16 Time of Evaluation: 09:00 - Subjective Subjective: still w/ body pain on r side. c/o malaise. hgb 6.7 to be transfused 1 unit prb per heme/onc. other labs and c/s noted. afebrile. Objective - Vital Signs/Intake and Output Vital Signs (last 24 hours): Temp Pulse Resp BP Pulse Ox 98.3 F 91 H 20 109/77 97 11/28/16 17:00 11/28/16 17:00 11/28/16 17:00 11/28/16 17:00 11/28/16 17:00 - Medications Medications: Current Medications Amoxicillin/Clavulanate Potassium (Augmentin 875 Mg-125 Mg Tab) 1 tab PO Q12 [facility] Last Admin: 11/28/16 08:44 Dose: 1 tab Benzocaine/Menthol (Cepacol Sore Throat) 1 junior PO Q2 PRN PRN Reason: Sore Throat Last Admin: 11/27/16 09:33 Dose: 1 junior Diphenhydramine HCl (Benadryl) 50 mg IVP Q6 PRN PRN Reason: Itching / Pruritus Last Admin: 11/28/16 12:48 Dose: 50 mg Folic Acid (Folic Acid) 1 mg PO DAILY [facility] Last Admin: 11/28/16 08:45 Dose: 1 mg Hydrocortisone (Cortizone 1% Cream) 1 applic TOP TID PRN PRN Reason: Itching / Pruritus Last Admin: 11/28/16 03:57 Dose: 1 applic Hydromorphone HCl (Dilaudid) 2 mg IVP Q3H PRN PRN Reason: Pain, severe (8-10) Last Admin: 11/28/16 16:24 Dose: 2 mg Hydromorphone HCl (Dilaudid) 2 mg PO Q6 PRN PRN Reason: Pain, moderate (4-7) Hydroxyurea (Hydrea) 500 mg PO BID [facility] Last Admin: 11/28/16 17:10 Dose: 500 mg Fluticasone/Salmeterol (Advair Diskus 250/50) 1 puff IH BID PRN PRN Reason: sob - Labs Labs: 11/28/16 09:00 11/28/16 06:00 - Constitutional Appears: Well, Non-toxic, No Acute Distress - Head Exam Head Exam: ATRAUMATIC, NORMAL INSPECTION, NORMOCEPHALIC - Eye Exam Eye Exam: EOMI, Normal appearance, PERRL Pupil Exam: NORMAL ACCOMODATION, PERRL - ENT Exam ENT Exam: Mucous Membranes Moist, Normal Exam - Neck Exam Neck Exam: Full ROM, Normal Inspection. absent: Lymphadenopathy - Respiratory Exam Respiratory Exam: Clear to Ausculation Bilateral, NORMAL BREATHING PATTERN - Cardiovascular Exam Cardiovascular Exam: REGULAR RHYTHM, RRR, +S1, +S2. absent: Murmur - GI/Abdominal Exam GI & Abdominal Exam: Soft, Normal Bowel Sounds. absent: Tenderness - Extremities Exam Extremities Exam: Full ROM, Normal Capillary Refill, Normal Inspection, Tenderness. absent: Joint Swelling, Pedal Edema - Back Exam Back Exam: NORMAL INSPECTION - Neurological Exam Neurological Exam: Alert, Awake, CN II-XII Intact, Normal Gait, Oriented x3 - Psychiatric Exam Psychiatric exam: Normal Affect, Normal Mood - Skin Skin Exam: Dry, Intact, Normal Color, Warm Assessment and Plan (1) Pharyngitis Status: Acute (2) DVT prophylaxis Status: Acute (3) Sickle cell crisis Status: Acute - Assessment and Plan (Free Text) Assessment: (1) Pharyngitis Assessment and Plan: augmentin Status: Acute (2) DVT prophylaxis Assessment and Plan: scd and aehose ambulation Status: Acute (3) Sickle cell crisis Assessment and Plan: dilaudid, iv or pr heme/onc f/u b/w ivf benadryl 1 unit prb today, follow hgb
--- NOTE | 2016-11-29 00:25 | CP.PCM.PN ---
Subjective - Date & Time of Evaluation Date of Evaluation: 11/28/16 Time of Evaluation: 17:00 - Subjective Subjective: Has pain S/p 1U PRBC Objective - Vital Signs/Intake and Output Vital Signs (last 24 hours): Temp Pulse Resp BP Pulse Ox 98.3 F 91 H 20 109/77 97 11/28/16 17:00 11/28/16 17:00 11/28/16 17:00 11/28/16 17:00 11/28/16 17:00 - Medications Medications: Current Medications Amoxicillin/Clavulanate Potassium (Augmentin 875 Mg-125 Mg Tab) 1 tab PO Q12 [facility] Last Admin: 11/28/16 21:08 Dose: 1 tab Benzocaine/Menthol (Cepacol Sore Throat) 1 junior PO Q2 PRN PRN Reason: Sore Throat Last Admin: 11/27/16 09:33 Dose: 1 junior Diphenhydramine HCl (Benadryl) 50 mg IVP Q6 PRN PRN Reason: Itching / Pruritus Last Admin: 11/28/16 19:55 Dose: 50 mg Folic Acid (Folic Acid) 1 mg PO DAILY [facility] Last Admin: 11/28/16 08:45 Dose: 1 mg Hydrocortisone (Cortizone 1% Cream) 1 applic TOP TID PRN PRN Reason: Itching / Pruritus Last Admin: 11/28/16 03:57 Dose: 1 applic Hydromorphone HCl (Dilaudid) 2 mg IVP Q3H PRN PRN Reason: Pain, severe (8-10) Last Admin: 11/28/16 23:29 Dose: 2 mg Hydromorphone HCl (Dilaudid) 2 mg PO Q6 PRN PRN Reason: Pain, moderate (4-7) Hydroxyurea (Hydrea) 500 mg PO BID [facility] Last Admin: 11/28/16 17:10 Dose: 500 mg Fluticasone/Salmeterol (Advair Diskus 250/50) 1 puff IH BID PRN PRN Reason: sob - Labs Labs: 11/28/16 09:00 11/28/16 06:00 - Head Exam Head Exam: ATRAUMATIC - Eye Exam Eye Exam: Normal appearance - ENT Exam ENT Exam: Mucous Membranes Dry - Respiratory Exam Respiratory Exam: NORMAL BREATHING PATTERN - Cardiovascular Exam Cardiovascular Exam: +S1, +S2 - GI/Abdominal Exam GI & Abdominal Exam: Normal Bowel Sounds - Extremities Exam Extremities Exam: Normal Inspection Assessment and Plan (1) Sickle cell pain crisis Assessment & Plan: IV fluids, 02 via NC, folic acid, rodriguez meds s/p 1U PRBC Status: Acute (2) Leukocytosis Assessment & Plan: on antibiotics Status: Acute (3) Iron overload due to repeated red blood cell transfusions Assessment & Plan: outpatient chelation Status: Acute (4) Sickle cell anemia Assessment & Plan: folic acid and hydrea Status: Acute
[2016-11-29] MEDS: DiphenhydrAMINE 50 mg/ml Inj IVP PRN ×4 (02:48→21:47)
[2016-11-29 07:05] LABS: HEMOGLOBIN 8.3 g/dL (12.0-16.0); MEAN CELL VOLUME 94.1 fl (81.0-99.0); MEAN CORPUSCULAR HEMOGLOBIN 32.6 pg (27.0-31.0); MEAN CORPUSCULAR HGB CONC 34.6 g/dL (33.0-37.0); RBC 2.54 Mil/uL (3.80-5.20); RED CELL DISTRIBUTION WIDTH 18.2 % (11.5-14.5); WHITE BLOOD COUNT 14.6 K/uL (4.8-10.8)
--- NOTE | 2016-11-29 07:21 | CP.PCM.PN ---
Subjective - Date & Time of Evaluation Date of Evaluation: 11/29/16 Time of Evaluation: 07:20 - Subjective Subjective: pt still w/ r sided body pain described as pressure/ache. no f/c, n/v/d. hgb 8.3 and wbc 14 today after 1 unit prbc yesterday. case d/c at length w/ dr ornelas yesterday. Objective - Vital Signs/Intake and Output Vital Signs (last 24 hours): Temp Pulse Resp BP Pulse Ox 98.2 F 91 H 18 117/66 95 11/29/16 00:00 11/29/16 00:00 11/29/16 00:00 11/29/16 00:00 11/29/16 00:00 - Medications Medications: Current Medications Amoxicillin/Clavulanate Potassium (Augmentin 875 Mg-125 Mg Tab) 1 tab PO Q12 [facility] Last Admin: 11/28/16 21:08 Dose: 1 tab Benzocaine/Menthol (Cepacol Sore Throat) 1 junior PO Q2 PRN PRN Reason: Sore Throat Last Admin: 11/27/16 09:33 Dose: 1 junior Diphenhydramine HCl (Benadryl) 50 mg IVP Q6 PRN PRN Reason: Itching / Pruritus Last Admin: 11/29/16 02:48 Dose: 50 mg Folic Acid (Folic Acid) 1 mg PO DAILY [facility] Last Admin: 11/28/16 08:45 Dose: 1 mg Hydrocortisone (Cortizone 1% Cream) 1 applic TOP TID PRN PRN Reason: Itching / Pruritus Last Admin: 11/28/16 03:57 Dose: 1 applic Hydromorphone HCl (Dilaudid) 2 mg IVP Q3H PRN PRN Reason: Pain, severe (8-10) Last Admin: 11/29/16 06:43 Dose: 2 mg Hydromorphone HCl (Dilaudid) 2 mg PO Q6 PRN PRN Reason: Pain, moderate (4-7) Hydroxyurea (Hydrea) 500 mg PO BID [facility] Last Admin: 11/28/16 17:10 Dose: 500 mg Fluticasone/Salmeterol (Advair Diskus 250/50) 1 puff IH BID PRN PRN Reason: sob - Labs Labs: 11/29/16 06:40 11/28/16 06:00 - Constitutional Appears: Well, Non-toxic, No Acute Distress - Head Exam Head Exam: ATRAUMATIC, NORMAL INSPECTION, NORMOCEPHALIC - Eye Exam Eye Exam: EOMI, Normal appearance, PERRL Pupil Exam: NORMAL ACCOMODATION, PERRL - ENT Exam ENT Exam: Mucous Membranes Moist, Normal Exam - Neck Exam Neck Exam: Full ROM, Normal Inspection. absent: Lymphadenopathy - Respiratory Exam Respiratory Exam: Clear to Ausculation Bilateral, NORMAL BREATHING PATTERN - Cardiovascular Exam Cardiovascular Exam: REGULAR RHYTHM, RRR, +S1, +S2. absent: Murmur - GI/Abdominal Exam GI & Abdominal Exam: Soft, Normal Bowel Sounds. absent: Tenderness - Extremities Exam Extremities Exam: Full ROM, Normal Capillary Refill, Normal Inspection, Tenderness. absent: Joint Swelling, Pedal Edema - Back Exam Back Exam: NORMAL INSPECTION - Neurological Exam Neurological Exam: Alert, Awake, CN II-XII Intact, Normal Gait, Oriented x3 - Psychiatric Exam Psychiatric exam: Normal Affect, Normal Mood - Skin Skin Exam: Dry, Intact, Normal Color, Warm Assessment and Plan (1) Pharyngitis Status: Acute (2) DVT prophylaxis Status: Acute (3) Sickle cell crisis Status: Acute - Assessment and Plan (Free Text) Assessment: (1) Pharyngitis Assessment and Plan: augmentin improving Status: Acute (2) DVT prophylaxis Assessment and Plan: scd and aehose ambulation Status: Acute (3) Sickle cell crisis Assessment and Plan: dilaudid, iv or pr heme/onc f/u b/w ivf benadryl 1 unit prb yesterday, follow hgb-improved today, wbc trending down
[2016-11-29] MEDS: Amoxicillin-Clav 875-125 mg Tab PO SCH ×2 (09:22→21:47)
--- NOTE | 2016-11-29 13:03 | PQF GENQUE ---
This form is a permanent part of the medical record 11/29/16 Rashaad Rojas APN, Please clarify the type of asthma. Documentation of a history of Asthma. Medication includes: Advair Diskus. Clarification of your documentation is requested to better reflect the severity of illness and intensity of treatment of your patient. Indicators present [] Specify: [] [] Specify: [] [] Specify: [] [] Specify: [] Location in the medical record that reflects the above clinical findings: [] Treatment Provided: [] PHYSICIAN'S RESPONSE [] Childhood [] Cough variant [] Exercise induced [] Late onset [x] Mild intermittent [] Mild persistent [] Moderate persistent [] Severe persistent [] With bronchitis(please clarify acuity of bronchitis) [] With chronic lung disease (please document specific chronic lung disease ) [] Other (please specify) [] Clinically unable to determine [] Unknown Based on your medical judgment of the clinical indicators outlined above please clarify the following: [] Practitioner response [] If unable to determine, please check the box, sign and date. Present On Admission (POA) Indicator: [x] Present at the time of admission chronic intermittent [] Not present at the time of admission [] Clinically Undetermined In responding to this query, please exercise your independent professional judgment. The fact that a question is asked does not imply that any particular answer is desired or expected. Thank you for your clarification on this documentation. If you have any questions please call:ext [phone] * Thank you, Flores Parr RN CDMP MTDD
[2016-11-29] MEDS: Sodium Chloride 0.9% 1,000 ML IV SCH ×3 (15:57→23:37)
[2016-11-30] MEDS: Sodium Chloride 0.9% 1,000 ML IV SCH ×4 (03:16→21:30)
[2016-11-30] MEDS: DiphenhydrAMINE 50 mg/ml Inj IVP PRN ×4 (03:55→22:11)
[2016-11-30 07:38] LABS: BASO % 0.4 % (0.0-2.0); EOS % 8.9 % (0.0-4.0); HEMOGLOBIN 8.2 g/dL (12.0-16.0); LYMPH # 3.7 K/uL (1.0-4.3); LYMPH % 32.7 % (20.0-40.0); MEAN CELL VOLUME 95.6 fl (81.0-99.0); MEAN CORPUSCULAR HGB CONC 34.5 g/dL (33.0-37.0); MEAN PLATELET VOLUME 8.2 fl (7.2-11.7); MONO # 1.2 K/uL (0.0-0.8); MONO % 10.8 % (0.0-10.0); NEUT # 5.3 K/uL (1.8-7.0); NEUT % 47.2 % (50.0-75.0); NRBC % 0.3 % (0.0-0.0); RBC 2.49 Mil/uL (3.80-5.20); WHITE BLOOD COUNT 11.3 K/uL (4.8-10.8)
[2016-11-30] MEDS: Amoxicillin-Clav 875-125 mg Tab PO SCH ×2 (08:46→21:14)
--- NOTE | 2016-11-30 09:17 | CP.PCM.PN ---
Subjective - Date & Time of Evaluation Date of Evaluation: 11/30/16 Time of Evaluation: 09:16 - Subjective Subjective: still w/ c/o bodyaches. no f/c, n/v/d. wbc 11, hgb 8.[address], cough/ congestion. Objective - Vital Signs/Intake and Output Vital Signs (last 24 hours): Temp Pulse Resp BP Pulse Ox 98.5 F 73 18 103/64 96 11/30/16 08:46 11/30/16 08:46 11/30/16 08:46 11/30/16 08:46 11/30/16 08:46 - Medications Medications: Current Medications Amoxicillin/Clavulanate Potassium (Augmentin 875 Mg-125 Mg Tab) 1 tab PO Q12 [facility] Last Admin: 11/30/16 08:46 Dose: 1 tab Benzocaine/Menthol (Cepacol Sore Throat) 1 junior PO Q2 PRN PRN Reason: Sore Throat Last Admin: 11/27/16 09:33 Dose: 1 junior Diphenhydramine HCl (Benadryl) 50 mg IVP Q6 PRN PRN Reason: Itching / Pruritus Last Admin: 11/30/16 03:55 Dose: 50 mg Folic Acid (Folic Acid) 1 mg PO DAILY [facility] Last Admin: 11/30/16 08:47 Dose: 1 mg Hydrocortisone (Cortizone 1% Cream) 1 applic TOP TID PRN PRN Reason: Itching / Pruritus Last Admin: 11/29/16 17:05 Dose: 1 applic Hydromorphone HCl (Dilaudid) 2 mg IVP Q3H PRN PRN Reason: Pain, severe (8-10) Last Admin: 11/30/16 08:44 Dose: 2 mg Hydromorphone HCl (Dilaudid) 2 mg PO Q6 PRN PRN Reason: Pain, moderate (4-7) Hydroxyurea (Hydrea) 500 mg PO BID [facility] Last Admin: 11/30/16 08:47 Dose: 500 mg Sodium Chloride (Sodium Chloride 0.9%) 1,000 mls @ 150 mls/hr IV .Q6H40M [facility] Stop: 11/30/16 11:52 Last Admin: 11/30/16 06:26 Dose: 150 mls/hr Fluticasone/Salmeterol (Advair Diskus 250/50) 1 puff IH BID PRN PRN Reason: sob - Labs Labs: 11/30/16 07:13 11/28/16 06:00 - Constitutional Appears: Well, Non-toxic, No Acute Distress - Head Exam Head Exam: ATRAUMATIC, NORMAL INSPECTION, NORMOCEPHALIC - Eye Exam Eye Exam: EOMI, Normal appearance, PERRL Pupil Exam: NORMAL ACCOMODATION, PERRL - ENT Exam ENT Exam: Mucous Membranes Moist, Normal Exam - Neck Exam Neck Exam: Full ROM, Normal Inspection. absent: Lymphadenopathy - Respiratory Exam Respiratory Exam: Clear to Ausculation Bilateral, NORMAL BREATHING PATTERN - Cardiovascular Exam Cardiovascular Exam: REGULAR RHYTHM, RRR, +S1, +S2. absent: Murmur - GI/Abdominal Exam GI & Abdominal Exam: Soft, Normal Bowel Sounds. absent: Tenderness - Extremities Exam Extremities Exam: Full ROM, Normal Capillary Refill, Normal Inspection, Tenderness. absent: Joint Swelling, Pedal Edema - Back Exam Back Exam: NORMAL INSPECTION - Neurological Exam Neurological Exam: Alert, Awake, CN II-XII Intact, Normal Gait, Oriented x3 - Psychiatric Exam Psychiatric exam: Normal Affect, Normal Mood - Skin Skin Exam: Dry, Intact, Normal Color, Warm Assessment and Plan (1) Pharyngitis Status: Acute (2) DVT prophylaxis Status: Acute (3) Sickle cell crisis Status: Acute - Assessment and Plan (Free Text) Assessment: (1) Pharyngitis Assessment and Plan: augmentin improving Status: Acute (2) DVT prophylaxis Assessment and Plan: scd and aehose ambulation Status: Acute (3) Sickle cell crisis Assessment and Plan: dilaudid, iv or po heme/onc f/u b/w ivf benadryl s/p 1 unit prb, follow hgb-, wbc trending down d/c planning
[2016-12-01] MEDS: Sodium Chloride 0.9% 1,000 ML IV SCH ×2 (04:05→10:09)
[2016-12-01] MEDS: DiphenhydrAMINE 50 mg/ml Inj IVP PRN ×2 (04:11→11:01)
[2016-12-01 07:52] LABS: BASO # 0.1 K/uL (0.0-0.2); BASO % 1.2 % (0.0-2.0); EOS # 0.9 K/uL (0.0-0.7); EOS % 7.3 % (0.0-4.0); HEMOGLOBIN 8.4 g/dL (12.0-16.0); LYMPH # 3.5 K/uL (1.0-4.3); LYMPH % 29.1 % (20.0-40.0); MEAN CELL VOLUME 96.4 fl (81.0-99.0); MEAN CORPUSCULAR HEMOGLOBIN 33.1 pg (27.0-31.0); MEAN CORPUSCULAR HGB CONC 34.3 g/dL (33.0-37.0); MEAN PLATELET VOLUME 8.2 fl (7.2-11.7); MONO % 8.8 % (0.0-10.0); NEUT # 6.4 K/uL (1.8-7.0); NEUT % 53.6 % (50.0-75.0); NRBC % 0.4 % (0.0-0.0); RBC 2.52 Mil/uL (3.80-5.20); RED CELL DISTRIBUTION WIDTH 18.3 % (11.5-14.5); WHITE BLOOD COUNT 11.9 K/uL (4.8-10.8)
--- NOTE | 2016-12-01 09:26 | CP.PCM.PN ---
Subjective - Date & Time of Evaluation Date of Evaluation: 11/30/16 Time of Evaluation: 18:00 - Subjective Subjective: Feeling better, less pain. Objective - Vital Signs/Intake and Output Vital Signs (last 24 hours): Temp Pulse Resp BP Pulse Ox 97.9 F 75 20 112/64 96 12/01/16 00:25 12/01/16 00:25 12/01/16 00:25 12/01/16 00:25 12/01/16 00:25 - Medications Medications: Current Medications Amoxicillin/Clavulanate Potassium (Augmentin 875 Mg-125 Mg Tab) 1 tab PO Q12 [facility] Last Admin: 11/30/16 21:14 Dose: 1 tab Benzocaine/Menthol (Cepacol Sore Throat) 1 junior PO Q2 PRN PRN Reason: Sore Throat Last Admin: 11/27/16 09:33 Dose: 1 junior Diphenhydramine HCl (Benadryl) 50 mg IVP Q6 PRN PRN Reason: Itching / Pruritus Last Admin: 12/01/16 04:11 Dose: 50 mg Folic Acid (Folic Acid) 1 mg PO DAILY [facility] Last Admin: 11/30/16 08:47 Dose: 1 mg Hydrocortisone (Cortizone 1% Cream) 1 applic TOP TID PRN PRN Reason: Itching / Pruritus Last Admin: 11/30/16 18:45 Dose: 1 applic Hydromorphone HCl (Dilaudid) 2 mg IVP Q3H PRN PRN Reason: Pain, severe (8-10) Last Admin: 12/01/16 07:53 Dose: 2 mg Hydromorphone HCl (Dilaudid) 2 mg PO Q6 PRN PRN Reason: Pain, moderate (4-7) Hydroxyurea (Hydrea) 500 mg PO BID [facility] Last Admin: 11/30/16 16:07 Dose: 500 mg Sodium Chloride (Sodium Chloride 0.9%) 1,000 mls @ 150 mls/hr IV .Q6H40M [facility] Stop: 12/01/16 21:21 Last Admin: 12/01/16 04:05 Dose: 150 mls/hr Fluticasone/Salmeterol (Advair Diskus 250/50) 1 puff IH BID PRN PRN Reason: sob - Labs Labs: 12/01/16 06:05 11/28/16 06:00 - Head Exam Head Exam: ATRAUMATIC - Eye Exam Eye Exam: Normal appearance - ENT Exam ENT Exam: Mucous Membranes Dry - Respiratory Exam Respiratory Exam: NORMAL BREATHING PATTERN - Cardiovascular Exam Cardiovascular Exam: +S1, +S2 - GI/Abdominal Exam GI & Abdominal Exam: Normal Bowel Sounds - Extremities Exam Extremities Exam: Normal Inspection Assessment and Plan (1) Sickle cell pain crisis Assessment & Plan: IV fluids, pain meds, folic acid, 02 via NC s/p PRBC transfusion Status: Acute (2) Leukocytosis Assessment & Plan: improved on ABX Status: Acute (3) Iron overload due to repeated red blood cell transfusions Assessment & Plan: outpatient chelation Status: Acute (4) Sickle cell anemia Assessment & Plan: outpatient folic acid and hydrea Status: Acute
[2016-12-01] MEDS: Amoxicillin-Clav 875-125 mg Tab PO SCH (09:59)
--- NOTE | 2016-12-01 10:35 | CP.PCM.DIS ---
Provider - Provider Date of Admission: 11/26/16 19:00 Attending physician: Kulwinder Vides MD Time Spent in preparation of Discharge (in minutes): 15 Diagnosis - Discharge Diagnosis (1) Pharyngitis Status: Acute (2) DVT prophylaxis Status: Acute (3) Sickle cell crisis Status: Acute Hospital Course - Lab Results Lab Results: Most Recent Lab Values WBC 11.9 K/uL (4.8-10.8) H 12/01/16 06:05 RBC 2.52 Mil/uL (3.80-5.20) L 12/01/16 06:05 Hgb 8.4 g/dL (12.0-16.0) L 12/01/16 06:05 Hct 24.3 % (34.0-47.0) L 12/01/16 06:05 MCV 96.4 fl (81.0-99.0) 12/01/16 06:05 MCH 33.1 pg (27.0-31.0) H 12/01/16 06:05 MCHC 34.3 g/dL (33.0-37.0) 12/01/16 06:05 RDW 18.3 % (11.5-14.5) H 12/01/16 06:05 Plt Count 459 K/uL (130-400) H 12/01/16 06:05 MPV 8.2 fl (7.2-11.7) 12/01/16 06:05 Neut % (Auto) 53.6 % (50.0-75.0) 12/01/16 06:05 Lymph % (Auto) 29.1 % (20.0-40.0) 12/01/16 06:05 [place] % (Auto) 8.8 % (0.0-10.0) 12/01/16 06:05 Eos % (Auto) 7.3 % (0.0-4.0) H 12/01/16 06:05 Baso % (Auto) 1.2 % (0.0-2.0) 12/01/16 06:05 Neut # 6.4 K/uL (1.8-7.0) 12/01/16 06:05 Lymph # 3.5 K/uL (1.0-4.3) 12/01/16 06:05 [place] # 1.0 K/uL (0.0-0.8) H 12/01/16 06:05 Eos # 0.9 K/uL (0.0-0.7) H 12/01/16 06:05 Baso # 0.1 K/uL (0.0-0.2) 12/01/16 06:05 Retic Count 8.4 % (0.5-1.5) H D 12/01/16 06:05 Sodium 140 mmol/l (132-148) 11/28/16 06:00 Potassium 3.9 MMOL/L (3.6-5.0) 11/28/16 06:00 Chloride 110 mmol/L (98-107) H 11/28/16 06:00 Carbon Dioxide 22 mmol/L (22-30) 11/28/16 06:00 Anion Gap 12 (10-20) 11/28/16 06:00 BUN 5 mg/dl (7-17) L 11/28/16 06:00 Creatinine 0.5 mg/dL (0.7-1.2) L 11/28/16 06:00 Est GFR ( Amer) > 60 11/28/16 06:00 Est GFR (Non-Af Amer) > 60 11/28/16 06:00 Random Glucose 76 mg/dL (65-105) 11/28/16 06:00 Calcium 8.6 mg/dL (8.4-10.2) 11/28/16 06:00 Total Bilirubin 2.4 mg/dl (0.2-1.3) H 11/28/16 06:00 AST 43 U/L (14-36) H 11/28/16 06:00 ALT 38 U/L (9-52) 11/28/16 06:00 Alkaline Phosphatase 60 U/L (38-126) 11/28/16 06:00 Total Protein 6.5 G/DL (6.3-8.2) 11/28/16 06:00 Albumin 3.9 g/dL (3.5-5.0) 11/28/16 06:00 Globulin 2.6 gm/dL (2.2-3.9) 11/28/16 06:00 Albumin/Globulin Ratio 1.5 (1.0-2.1) 11/28/16 06:00 Urine Color Yellow (YELLOW) 11/26/16 17:23 Urine Clarity Clear (Clear) 11/26/16 17:23 Urine pH 6.0 (5.0-8.0) 11/26/16 17:23 Ur Specific [place] 1.013 (1.003-1.030) 11/26/16 17:23 Urine Protein Negative mg/dL (NEGATIVE) 11/26/16 17:23 Urine Glucose (UA) Neg mg/dL (Normal) 11/26/16 17:23 Urine Ketones Trace mg/dL (NEGATIVE) 11/26/16 17:23 Urine Blood Negative (NEGATIVE) 11/26/16 17:23 Urine Nitrate Negative (NEGATIVE) 11/26/16 17:23 Urine Bilirubin Negative (NEGATIVE) 11/26/16 17: Urine Urobilinogen 0.2-1.0 mg/dL (0.2-1.0) 11/26/16 17:23 Ur Leukocyte Esterase Neg Mac[place]/uL (Negative) 11/26/16 17:23 Urine RBC (Auto) 1 /hpf (0-3) 11/26/16 17:23 Urine Microscopic WBC 1 /hpf (0-5) 11/26/16 17:23 Ur Squamous Epith Cells 1 /hpf (0-5) 11/26/16 17:23 Urine Opiates Screen Negative (NEGATIVE) 11/26/16 18:10 Urine Methadone Screen Negative (NEGATIVE) 11/26/16 18:10 Ur Barbiturates Screen Negative (NEGATIVE) 11/26/16 18:10 Ur Phencyclidine Scrn Negative (NEGATIVE) 11/26/16 18:10 Ur Amphetamines Screen Negative (NEGATIVE) 11/26/16 18:10 U Benzodiazepines Scrn Negative (NEGATIVE) 11/26/16 18:10 U Oth Cocaine Metabols Negative (NEGATIVE) 11/26/16 18:10 U Cannabinoids Screen Positive (NEGATIVE) H 11/26/16 18:10 Influenza Typ A,B (EIA) Negative for flu a/b (NEGATIVE) 11/26/16 17:15 Grp A Beta Strep Ag Negative (NEGATIVE) 11/26/16 17:15 Blood Type O POSITIVE 11/28/16 14:00 Antibody Screen Negative 11/28/16 14:00 Crossmatch See Detail 11/28/16 14:00 BBK History Checked Patient has bt 11/28/16 14:00 Discharge Exam - Head Exam Head Exam: ATRAUMATIC, NORMAL INSPECTION, NORMOCEPHALIC - Eye Exam Eye Exam: EOMI, Normal appearance, PERRL Pupil Exam: NORMAL ACCOMODATION, PERRL - Respiratory Exam Respiratory Exam: Clear to PA & Lateral, NORMAL BREATHING PATTERN, UNREMARKABLE - Cardiovascular Exam Cardiovascular Exam: REGULAR RHYTHM, RRR, +S1, +S2 - GI/Abdominal Exam GI & Abdominal Exam: Normal Bowel Sounds, Soft, Unremarkable - Exam Exam: Circumcision, NORMAL INSPECTION External exam: NORMAL EXTERNAL EXAM Speculum exam: NORMAL SPECULUM EXAM Bimanual exam: NORMAL BIMANUAL EXAM - Extremities Exam Extremities exam: full ROM, normal capillary refill, normal inspection, pedal pulses present - Back Exam Back exam: FULL ROM - Neurological Exam Neurological exam: Alert, CN II-XII Intact, Normal Gait, Oriented x3, Reflexes Normal - Psychiatric Exam Psychiatric exam: Normal Affect, Normal Mood - Skin Skin Exam: Dry, Intact, Normal Color, Warm Discharge Plan - Discharge Medications Prescriptions: Amoxicillin/Clavulanate [Augmentin 875 MG-125 MG Tab] 1 tab PO Q12 #10 tab HYDROmorphone [Dilaudid] 2 mg PO Q6 PRN #10 tab PRN Reason: Pain, Moderate (4-7) - Follow Up Plan Condition: SERIOUS Disposition: HOME/ ROUTINE Instructions: Pharyngitis (DC), Sickle Cell Anemia (DC) Additional Instructions: f/u rmg 2 days, rted prn, meds per med rec, fianl dx scc, acute anemia r/t sca, pain, atp pain appears controlled bw noted Referrals: Rashaad Rojas, DNP, DIRECTOR OF PUPIL PERSONNEL PROGRAM [Advanced Practice Nurse] -
[2016-12-01 15:56] VITALS: BP 98/58; PULSE 77; RESP 17; TEMP 98.7; O2SAT 94
== END 2016-12-01 19:07 | disposition home or self-care (01) | DRG 395 ==
LOC: H.ER 16:24 → H.ERHOLD 19:00 → H.MEDSURG1 22:02
PROVIDERS: ADMIT Family Medicine; ATTEND Family Medicine
PROC: 30233N1 Transfusion of Nonautologous Red Blood Cells into Peripheral Vein, Percutaneous Approach (ICD-10-PCS; principal; 2016-11-28)
DX: D57.00 Hb-SS disease with crisis, unspecified (principal); E83.111 Hemochromatosis due to repeated red blood cell transfusions; E86.0 Dehydration; F17.210 Nicotine dependence, cigarettes, uncomplicated; J02.9 Acute pharyngitis, unspecified; J45.20 Mild intermittent asthma, uncomplicated; Z91.040 Latex allergy status; Z91.018 Allergy to other foods

== ENCOUNTER 2017-09-30 15:44 | Inpatient (IN) | payer MEDICAID ==
[2017-09-30] MEDS ORDERED: Sodium Chloride 0.9% 1,000 ML IV STA (15:55)
[2017-09-30] MEDS ORDERED: HYDROmorphone 0.5 mg/0.5 ml ISec IVP STA (15:55)
[2017-09-30] MEDS ORDERED: DiphenhydrAMINE 50 mg/ml Inj IVP STA (15:56)
[2017-09-30] MEDS ORDERED: DiphenhydrAMINE 50 mg/ml Inj ONE (16:01)
[2017-09-30] MEDS ORDERED: HYDROmorphone 0.5 mg/0.5 ml ISec ONE (16:02)
--- NOTE | 2017-09-30 16:08 | ED PDOC ---
HPI: General Adult Time Seen by Provider: 09/30/17 15:49 Chief Complaint (Nursing): Flu-like Symptoms Chief Complaint (Provider): Flu-like Symptoms History Per: Patient History/Exam Limitations: no limitations Onset/Duration Of Symptoms: Hrs (x 1) Additional Complaint(s): 27 years old female with sickle cell crisis presents to the ED with complaints of right arm spasm s/p splenectomy prior to arrival. Patient denies any trauma, chest pain, shortness of breath or abdominal pain. PMD: Procedure,Nonphys Past Medical History Reviewed: Historical Data, Nursing Documentation, Vital Signs Vital Signs: Last Vital Signs Temp 99.2 F 09/30/17 15:51 Pulse 95 H 09/30/17 15:51 Resp 18 09/30/17 15:51 BP 113/80 09/30/17 15:51 Pulse Ox 99 09/30/17 16:48 - Medical History PMH: Asthma, Sickle Cell Disease Denies: Alzheimer's Disease, Anemia, Anxiety, Arthritis, Atrial Fibrillation , Bipolar Disorder, Bronchitis, CAD, Cardia Arrhythmia, CHF, COPD, Crohn's Disease, Dementia, Depression, Diabetes, Diverticulitis, Emphysema, Fractures, Gastritis, Gall Bladder Disease, Hepatitis, HIV, HTN, Hypercholesterolemia, Hyperthyroidism, Hypothyroidism, Kidney Stones, Migraine, Mitral Valve Prolapse , Multiple Sclerosis, Osteoporosis, Pancreatitis, Paranoia, Parkinson's Disease , Peripheral Edema, Pneumonia, Post Traumatic Stress Disorder, Pulmonary Embolism, Chronic Kidney Disease, Rheumatoid Arthritis, Schizophrenia, Seizures , Sexually Transmitted Disease, Sleep Apnea, TIA - Surgical History Surgical History: Cholecystectomy Denies: Appendectomy, CABG, Carotid Endarterectomy, Coronary Stent, Pacemaker , Tonsillectomy Other surgeries: Splenectomy - Family History Family History: States: Unknown Family Hx - Social History Current smoker - smoking cessation education provided: No (Unkown) Alcohol: None (Unkown) Drugs: Denies (Unkown) - Immunization History Hx Tetanus Toxoid Vaccination: No Hx Influenza Vaccination: No Hx Pneumococcal Vaccination: No - Home Medications Home Medications: Ambulatory Orders Medication Instructions Recorded Albuterol HFA [Ventolin HFA 90 1 puff IH Q6 #1 inhaler 03/20/17 mcg/actuation (8 g)] Fluticasone/Salmeterol 100/50 1 puff IH Q12 #14 puff 03/20/17 [Advair Diskus 100/50] Folic Acid 1 mg PO DAILY #7 tab 03/20/17 HYDROmorphone [Dilaudid] 2 mg PO Q4 #10 tab 03/20/17 Hydroxyurea [Hydrea] 500 mg PO BID #14 cap 03/20/17 - Allergies Allergies/Adverse Reactions: Allergies Allergy/AdvReac Type Severity Reaction Status Date / Time latex Allergy RASH Verified 06/28/16 04:33 maryanne Allergy RASH Verified 06/28/16 04:33 meperidine HCl [From Demerol] Allergy RASH Verified 06/28/16 04:33 Review of Systems ROS Statement: Except As Marked, All Systems Reviewed And Found Negative Cardiovascular: Negative for: Chest Pain Respiratory: Negative for: Shortness of Breath Gastrointestinal: Negative for: Abdominal Pain Musculoskeletal: Positive for: Arm Pain (Right) Physical Exam - Reviewed Nursing Documentation Reviewed: Yes Vital Signs Reviewed: Yes - Physical Exam Appears: Positive for: Non-toxic, No Acute Distress Head Exam: Positive for: ATRAUMATIC, NORMOCEPHALIC Skin: Positive for: Normal Color, Warm, Dry Neck: Positive for: Normal, Supple Cardiovascular/Chest: Positive for: Regular Rate, Rhythm. Negative for: Murmur Respiratory: Positive for: Normal Breath Sounds. Negative for: Respiratory Distress Pulses-Radial (L): 2+ Pulses-Radial (R): 2+ Gastrointestinal/Abdominal: Positive for: Normal Exam, Soft. Negative for: Tenderness Extremity: Negative for: Deformity (Right upper), Swelling (right upper) Neurologic/Psych: Positive for: Alert, Oriented - Laboratory Results Result Diagrams: 09/30/17 16:20 09/30/17 16:20 - ECG O2 Sat by Pulse Oximetry: 99 (RA) Pulse Ox Interpretation: Normal Medical Decision Making Medical Decision Making: Time: [id number] Initial Plan: --EKG --CMP --Urine --Urine Dipstick --CBC --Reticulocyte Count --Chest X-Ray --Benadryl 50 mg IVP --Dilaudid 1 mg IVP --NaCl 1,000 ml IV 200 ml/hr Scribe Attestation: Documented by Kavita Polk, acting as a scribe for Sukumar Mcgovern MD. Provider Scribe Attestation: All medical record entries made by the Scribe were at my direction and personally dictated by me. I have reviewed the chart and agree that the record accurately reflects my personal performance of the history, physical exam, medical decision making, and the department course for this patient. I have also personally directed, reviewed, and agree with the discharge instructions and disposition. Disposition - Clinical Impression Clinical Impression: Sickle cell pain crisis - Patient ED Disposition Is Patient to be Admitted: Yes - Disposition Disposition Time: 17:18 Condition: FAIR Forms: [employer] ([place]) - Pt Status Changed To: Hospital Disposition Of: Inpatient - Admit Certification Admit to Inpatient:: After my assessment, the patient will require hospitalization for at least two midnights. This is because of the severity of symptoms shown, intensity of services needed, and/or the medical risk in this patient being treated as an outpatient. - POA Present On Arrival: None
[2017-09-30 16:33] LABS: BASO # 0.2 K/uL (0.0-0.2); BASO % 1.3 % (0.0-2.0); EOS # 0.4 K/uL (0.0-0.7); EOS % 2.8 % (0.0-4.0); HEMOGLOBIN 9.2 g/dL (12.0-16.0); LYMPH # 2.7 K/uL (1.0-4.3); MEAN CELL VOLUME 106.7 fl (81.0-99.0); MEAN CORPUSCULAR HEMOGLOBIN 37.9 pg (27.0-31.0); MEAN CORPUSCULAR HGB CONC 35.5 g/dL (33.0-37.0); MEAN PLATELET VOLUME 7.7 fl (7.2-11.7); MONO % 7.6 % (0.0-10.0); NEUT # 8.7 K/uL (1.8-7.0); NEUT % 67.3 % (50.0-75.0); NRBC % 0.6 % (0.0-0.0); RBC 2.44 Mil/uL (3.80-5.20); RED CELL DISTRIBUTION WIDTH 17.4 % (11.5-14.5)
--- NOTE | 2017-09-30 16:46 | RAD ---
HISTORY: cough COMPARISON: Comparison chest 11/26/2016 FINDINGS: Re- demonstrated is in situ a right subclavian MediPort. LUNGS: No active pulmonary disease. PLEURA: No significant pleural effusion identified, no pneumothorax apparent. CARDIOVASCULAR: Normal. OSSEOUS STRUCTURES: No significant note again. VISUALIZED UPPER ABDOMEN: Made of a calcifications in the left upper quadrant of the abdomen. . OTHER FINDINGS: None. IMPRESSION: No active disease.
--- NOTE | 2017-09-30 16:47 | RAD ---
PROCEDURE: Right Hand Radiographs. HISTORY: Pain COMPARISON: None. FINDINGS: BONES: No evidence of acute displaced fracture nor dislocation. The osseous structures intact without cortical destructive changes. JOINTS: No significant osteoarthritic changes. SOFT TISSUES: Soft tissues appear unremarkable. No evidence of subcutaneous emphysema or opaque foreign bodies. OTHER FINDINGS: None. IMPRESSION: Unremarkable radiographs right hand.
--- NOTE | 2017-09-30 16:49 | RAD ---
PROCEDURE: Radiographs of the Right Forearm HISTORY: Pain COMPARISON: None available. TECHNIQUE: Frontal and lateral views obtained. FINDINGS: BONES: No fracture or destructive lesion. JOINT SPACES: Unremarkable. OTHER FINDINGS: None. IMPRESSION: Unremarkable radiographs of the right forearm.
[2017-09-30 16:55] LABS: ALB/GLOB RATIO 1.4 (1.0-2.1); ALBUMIN 4.6 g/dL (3.5-5.0); ALT/SGPT 39 U/L (9-52); AST/SGOT 36 U/L (14-36); BLOOD UREA NITROGEN 4 mg/dl (7-17); CALCIUM 9.6 mg/dL (8.4-10.2); GFR AFRICAN-AMERICAN > 60; GFR NON-AFRICAN AMERICAN > 60
[2017-09-30] MEDS ORDERED: HYDROmorphone 0.5 mg/0.5 ml ISec IVP PRN (17:38)
[2017-09-30] MEDS: Albuterol 0.083% Inhal Sol (2.5 mg/3 mL) UD IH PRN (20:24)
[2017-09-30] MEDS: Morphine 4 MG/ML VIAL IVP PRN (20:52)
[2017-09-30] MEDS: DiphenhydrAMINE 50 mg/ml Inj IVP PRN (23:01)
[2017-10-01] MEDS: Albuterol 0.083% Inhal Sol (2.5 mg/3 mL) UD IH PRN ×5 (00:02→23:56)
[2017-10-01] MEDS: Morphine 4 MG/ML VIAL IVP PRN ×7 (00:05→22:11)
[2017-10-01] MEDS: Sodium Chloride 0.9% 1,000 ML IV SCH ×5 (01:00→23:20)
[2017-10-01] MEDS: DiphenhydrAMINE 50 mg/ml Inj IVP PRN ×4 (05:03→23:12)
--- NOTE | 2017-10-01 07:55 | CP.PCM.HP ---
History of Present Illness - History of Present Illness History of Present Illness: pt admitted for SCC w/ diffuse body aches. bw noted. heme/onc consult penidng. am labs pending. no f/c, n/v/d. no cough/congesiton at this time. Present on Admission - Present on Admission Any Indicators Present on Admission: No Review of Systems - Musculoskeletal Musculoskeletal: As Per HPI, Arthralgias, Myalgias Past Patient History - Infectious Disease Hx of Infectious Diseases: None - Past Medical History & Family History Past Medical History?: Yes - Past Social History Smoking Status: Never Smoked - CARDIAC Hx Cardiac Disorders: No - PULMONARY Hx Respiratory Disorders: Yes Hx Asthma: Yes - NEUROLOGICAL Hx Neurological Disorder: No Hx Alzheimer's Disease: No Hx Dementia: No Hx Migraine: No Hx Multiple Sclerosis: No Hx Parkinson's Disease: No Hx Seizures: No Hx Transient Ischemic Attacks (TIA): No - HEENT Hx HEENT Problems: Yes - RENAL Hx Chronic Kidney Disease: No - ENDOCRINE/METABOLIC Hx Endocrine Disorders: No Hx Hyperthyroidism: No Hx Hypothyroidism: No - HEMATOLOGICAL/ONCOLOGICAL Hx Blood Disorders: Yes Hx Sickle Cell Disease: Yes - INTEGUMENTARY Hx Dermatological Problems: No - MUSCULOSKELETAL/RHEUMATOLOGICAL Hx Musculoskeletal Disorders: No Hx Falls: No - GASTROINTESTINAL Hx Gastrointestinal Disorders: No Hx Crohn's Disease: No Hx Diverticulitis: No Hx Gall Bladder Disease: No Hx Gastritis: No Hx Pancreatitis: No - GENITOURINARY/GYNECOLOGICAL Hx Genitourinary Disorders: No Hx Sexually Transmitted Disorders: No - PSYCHIATRIC Hx Psychophysiologic Disorder: No Hx Substance Use: No - SURGICAL HISTORY Hx Surgeries: Yes Hx Appendectomy: No Hx Carotid Endarterectomy: No Hx Cholecystectomy: Yes Hx Coronary Artery Bypass Graft: No Hx Coronary Stent: No Hx Splenectomy: Yes Hx Tonsillectomy: No - ANESTHESIA Hx Anesthesia: Yes Hx Anesthesia Reactions: No Hx Malignant Hyperthermia: No Has any member of the family had a problem w/ anesthesia?: No Meds Allergies/Adverse Reactions: Allergies Allergy/AdvReac Type Severity Reaction Status Date / Time latex Allergy RASH Verified 06/28/16 04:33 [email or web address] Allergy RASH Verified 06/28/16 04:33 meperidine HCl [From Demerol] Allergy RASH Verified 06/28/16 04:33 Physical Exam - Constitutional Appears: Well, Non-toxic, No Acute Distress - Head Exam Head Exam: ATRAUMATIC, NORMAL INSPECTION, NORMOCEPHALIC - Eye Exam Eye Exam: EOMI, Normal appearance, PERRL Pupil Exam: NORMAL ACCOMODATION, PERRL - ENT Exam ENT Exam: Mucous Membranes Moist, Normal Exam - Neck Exam Neck exam: Positive for: Normal Inspection - Respiratory Exam Respiratory Exam: Clear to Auscultation Bilateral, NORMAL BREATHING PATTERN - Cardiovascular Exam Cardiovascular Exam: REGULAR RHYTHM, RRR, +S1, +S2 - GI/Abdominal Exam GI & Abdominal Exam: Normal Bowel Sounds, Soft. absent: Tenderness - Extremities Exam Extremities exam: Positive for: full ROM, normal capillary refill, normal inspection, pedal pulses present - Back Exam Back exam: NORMAL INSPECTION - Neurological Exam Neurological exam: Alert, CN II-XII Intact, Normal Gait, Oriented x3, Reflexes Normal - Psychiatric Exam Psychiatric exam: Normal Affect, Normal Mood - Skin Skin Exam: Dry, Intact, Normal Color, Warm Results - Vital Signs Recent Vital Signs: Last Vital Signs Temp 97.8 F 09/30/17 23:32 Pulse 80 09/30/17 23:32 Resp 20 09/30/17 23:32 BP 108/68 09/30/17 23:32 Pulse Ox 96 09/30/17 23:32 - Labs Result Diagrams: 09/30/17 16:20 09/30/17 16:20 Labs: Laboratory Results - last 24 hr 09/30/17 09/30/17 09/30/17 15:58 16:20 16:20 WBC 13.0 H RBC 2.44 L Hgb 9.2 L Hct 26.0 L MCV 106.7 H D MCH 37.9 H MCHC 35.5 RDW 17.4 H Plt Count 527 H MPV 7.7 Neut % (Auto) 67.3 Lymph % (Auto) 21.0 [place] % (Auto) 7.6 Eos % (Auto) 2.8 Baso % (Auto) 1.3 Neut # (Auto) 8.7 H Lymph # (Auto) 2.7 [place] # (Auto) 1.0 H Eos # (Auto) 0.4 Baso # (Auto) 0.2 Retic Count 16.7 H D Sodium 146 Potassium 3.9 Chloride 108 H Carbon Dioxide 19 L Anion Gap 23 H BUN 4 L Creatinine 0.6 L Est GFR ( Amer) > 60 Est GFR (Non-Af Amer) > 60 Random Glucose 98 Calcium 9.6 Total Bilirubin 3.1 H AST 36 D ALT 39 Alkaline Phosphatase 60 Total Protein 7.8 Albumin 4.6 Globulin 3.2 Albumin/Globulin Ratio 1.4 Assessment & Plan (1) Sickle cell pain crisis Assessment and Plan: pain control-ms 4mg q3 not helping pain, incr to 8mg q4h will monitor hemeonc ivf benadryl prn home meds monitor bw incl retic Status: Acute (2) DVT prophylaxis Assessment and Plan: scd nad ae hose ambulatioln Status: Acute Decision To Admit - Pt Status Changed To: Hospital Disposition Of: Inpatient - Admit Certification Admit to Inpatient:: After my assessment, the patient will require hospitalization for at least two midnights. This is because of the severity of symptoms shown, intensity of services needed, and/or the medical risk in this patient being treated as an outpatient. - . Bed Request Type: Med/Surg Admitting Physician: Kulwinder Vides
[2017-10-01 08:21] LABS: BASO # 0.1 K/uL (0.0-0.2); BASO % 0.5 % (0.0-2.0); EOS # 1.3 K/uL (0.0-0.7); HEMOGLOBIN 7.8 g/dL (12.0-16.0); LYMPH # 4.5 K/uL (1.0-4.3); LYMPH % 35.3 % (20.0-40.0); MEAN CELL VOLUME 106.6 fl (81.0-99.0); MEAN CORPUSCULAR HEMOGLOBIN 37.6 pg (27.0-31.0); MEAN CORPUSCULAR HGB CONC 35.3 g/dL (33.0-37.0); MEAN PLATELET VOLUME 7.8 fl (7.2-11.7); MONO # 1.1 K/uL (0.0-0.8); MONO % 8.9 % (0.0-10.0); NEUT # 5.8 K/uL (1.8-7.0); NEUT % 45.3 % (50.0-75.0); NRBC % 0.6 % (0.0-0.0); RBC 2.07 Mil/uL (3.80-5.20); RED CELL DISTRIBUTION WIDTH 17.2 % (11.5-14.5); WHITE BLOOD COUNT 12.8 K/uL (4.8-10.8)
[2017-10-01 09:16] LABS: ALB/GLOB RATIO 1.2 (1.0-2.1); ALBUMIN 3.4 g/dL (3.5-5.0); ALT/SGPT 32 U/L (9-52); AST/SGOT 51 U/L (14-36); BLOOD UREA NITROGEN 6 mg/dl (7-17); CALCIUM 8.2 mg/dL (8.4-10.2); GFR AFRICAN-AMERICAN > 60; GFR NON-AFRICAN AMERICAN > 60
[2017-10-01] MEDS ORDERED: Potassium Chloride 20 mEq ER Tab PO ONE (09:18)
[2017-10-01] MEDS ORDERED: Albuterol-Ipratrop 3 mg / 0.5 (3 ml) UD ONE (09:30)
[2017-10-01] MEDS: Albuterol HFA 90 mcg/actuation (8 g) IH PRN (09:51)
--- NOTE | 2017-10-01 23:10 | CP.PCM.CON ---
History of Present Illness - History of Present Illness History of Present Illness: 27 year old female with a history of sickle cell anemia admitted with sickle pain crisis. The patient reports to increasing pain involving her right shoulder and radiating to her back. She feels her pain was exacerbated by changes in the weather. She also notes to cramping of her right hand which is new for her. She denies shortness of breath and chest pain. She has no fevers or chills. Past medical history: sickle cell anemia Past surgical history: portacath placement. Family history: Parents have sickle trait. Social history: Denies tobacco, alcohol, and illicit drug use. Allergies: meperidine. Review of systems: All remaining ROS including HEENT, cardiovascular, respiratory, gastrointestinal, genitourinary, musculoskeletal, dermatologic, neurologic, are psychiatric are negative unless mentioned in the HPI. Past Patient History - Infectious Disease Hx of Infectious Diseases: None - Past Medical History & Family History Past Medical History?: Yes - Past Social History Smoking Status: Never Smoked - CARDIAC Hx Cardiac Disorders: No - PULMONARY Hx Respiratory Disorders: Yes Hx Asthma: Yes - NEUROLOGICAL Hx Neurological Disorder: No Hx Alzheimer's Disease: No Hx Dementia: No Hx Migraine: No Hx Multiple Sclerosis: No Hx Parkinson's Disease: No Hx Seizures: No Hx Transient Ischemic Attacks (TIA): No - HEENT Hx HEENT Problems: Yes - RENAL Hx Chronic Kidney Disease: No - ENDOCRINE/METABOLIC Hx Endocrine Disorders: No Hx Hyperthyroidism: No Hx Hypothyroidism: No - HEMATOLOGICAL/ONCOLOGICAL Hx Blood Disorders: Yes Hx Sickle Cell Disease: Yes - INTEGUMENTARY Hx Dermatological Problems: No - MUSCULOSKELETAL/RHEUMATOLOGICAL Hx Musculoskeletal Disorders: No Hx Falls: No - GASTROINTESTINAL Hx Gastrointestinal Disorders: No Hx Crohn's Disease: No Hx Diverticulitis: No Hx Gall Bladder Disease: No Hx Gastritis: No Hx Pancreatitis: No - GENITOURINARY/GYNECOLOGICAL Hx Genitourinary Disorders: No Hx Sexually Transmitted Disorders: No - PSYCHIATRIC Hx Psychophysiologic Disorder: No Hx Substance Use: No - SURGICAL HISTORY Hx Surgeries: Yes Hx Appendectomy: No Hx Carotid Endarterectomy: No Hx Cholecystectomy: Yes Hx Coronary Artery Bypass Graft: No Hx Coronary Stent: No Hx Splenectomy: Yes Hx Tonsillectomy: No - ANESTHESIA Hx Anesthesia: Yes Hx Anesthesia Reactions: No Hx Malignant Hyperthermia: No Has any member of the family had a problem w/ anesthesia?: No Meds Allergies/Adverse Reactions: Allergies Allergy/AdvReac Type Severity Reaction Status Date / Time latex Allergy RASH Verified 06/28/16 04:33 maryanne Allergy RASH Verified 06/28/16 04:33 meperidine HCl [From Demerol] Allergy RASH Verified 06/28/16 04:33 - Medications Medications: Current Medications Albuterol (Ventolin Hfa 90 Mcg/Actuation (8 G)) 2 puff IH Q6 PRN PRN Reason: Shortness of Breath Last Admin: 10/01/17 09:51 Dose: 2 puff Albuterol Sulfate (Albuterol 0.083% Inhal Ethel (2.5 Mg/3 Ml) Ud) 2.5 mg IH Q4 PRN PRN Reason: Shortness of Breath Last Admin: 10/01/17 19:54 Dose: 2.5 mg Diphenhydramine HCl (Benadryl) 50 mg IVP Q6 PRN PRN Reason: Itching / Pruritus Last Admin: 10/01/17 17:50 Dose: 50 mg Folic Acid (Folic Acid) 1 mg PO DAILY [facility] Last Admin: 10/01/17 09:51 Dose: 1 mg Hydroxyurea (Hydrea) 500 mg PO Q12 LILLIAN Last Admin: 10/01/17 21:41 Dose: 500 mg Morphine Sulfate (Morphine) 8 mg IVP Q4 PRN PRN Reason: Pain, severe (8-10) Last Admin: 10/01/17 22:11 Dose: 8 mg Physical Exam - Head Exam Head Exam: ATRAUMATIC - Eye Exam Eye Exam: Normal appearance - ENT Exam ENT Exam: Mucous Membranes Dry - Respiratory Exam Respiratory Exam: NORMAL BREATHING PATTERN - Cardiovascular Exam Cardiovascular Exam: +S1, +S2 - GI/Abdominal Exam GI & Abdominal Exam: Normal Bowel Sounds - Extremities Exam Extremities exam: Positive for: normal inspection - Neurological Exam Neurological exam: Oriented x3 - Psychiatric Exam Psychiatric exam: Normal Affect, Normal Mood - Skin Skin Exam: Warm Results - Vital Signs Recent Vital Signs: Last Vital Signs Temp 98.1 F 10/01/17 15:59 Pulse 92 H 10/01/17 15:59 Resp 18 10/01/17 15:59 BP 99/57 L 10/01/17 15:59 Pulse Ox 92 L 10/01/17 15:59 - Labs Result Diagrams: 10/01/17 04:00 10/01/17 04:00 Labs: Laboratory Results - last 24 hr 10/01/17 10/01/17 04:00 04:00 WBC 12.8 H RBC 2.07 L Hgb 7.8 L Hct 22.1 L MCV 106.6 H MCH 37.6 H MCHC 35.3 RDW 17.2 H Plt Count 509 H MPV 7.8 Neut % (Auto) 45.3 L Lymph % (Auto) 35.3 [place] % (Auto) 8.9 Eos % (Auto) 10.0 H Baso % (Auto) 0.5 Neut # (Auto) 5.8 Lymph # (Auto) 4.5 H [place] # (Auto) 1.1 H Eos # (Auto) 1.3 H Baso # (Auto) 0.1 Retic Count 15.3 H Sodium 142 Potassium 3.4 L Chloride 108 H Carbon Dioxide 21 L Anion Gap 16 BUN 6 L Creatinine 0.5 L Est GFR ( Amer) > 60 Est GFR (Non-Af Amer) > 60 Random Glucose 69 Calcium 8.2 L Total Bilirubin 2.3 H AST 51 H D ALT 32 Alkaline Phosphatase 47 Total Protein 6.2 L Albumin 3.4 L D Globulin 2.8 Albumin/Globulin Ratio 1.2 Assessment & Plan (1) Sickle cell pain crisis Assessment and Plan: IV fluids, pain meds, folic acid, 02 via NC no current transfusion indication Status: Acute (2) Iron overload due to repeated red blood cell transfusions Assessment and Plan: minimize transfusion support not compliant with outpatient chelation Status: Acute (3) Sickle cell anemia Assessment and Plan: outpatient folic acid and hydrea Thank you for this interesting consult. Status: Acute
[2017-10-02] MEDS: Morphine 4 MG/ML VIAL IVP PRN ×4 (02:02→15:10)
[2017-10-02] MEDS: Albuterol 0.083% Inhal Sol (2.5 mg/3 mL) UD IH PRN ×3 (03:18→23:24)
[2017-10-02] MEDS: DiphenhydrAMINE 50 mg/ml Inj IVP PRN ×4 (06:03→23:45)
[2017-10-02] MEDS: Sodium Chloride 0.9% 1,000 ML IV SCH (06:22)
[2017-10-02 07:51] LABS: ALB/GLOB RATIO 1.3 (1.0-2.1); ALBUMIN 3.7 g/dL (3.5-5.0); ALT/SGPT 42 U/L (9-52); AST/SGOT 54 U/L (14-36); BLOOD UREA NITROGEN 5 mg/dl (7-17); CALCIUM 8.7 mg/dL (8.4-10.2); GFR AFRICAN-AMERICAN > 60; GFR NON-AFRICAN AMERICAN > 60
[2017-10-02 07:56] LABS: BASO # 0.1 K/uL (0.0-0.2); BASO % 0.5 % (0.0-2.0); EOS # 1.8 K/uL (0.0-0.7); EOS % 13.6 % (0.0-4.0); LYMPH # 3.8 K/uL (1.0-4.3); MEAN CELL VOLUME 104.7 fl (81.0-99.0); MEAN CORPUSCULAR HEMOGLOBIN 37.7 pg (27.0-31.0); MONO # 1.1 K/uL (0.0-0.8); MONO % 8.4 % (0.0-10.0); NEUT # 6.7 K/uL (1.8-7.0); NEUT % 49.5 % (50.0-75.0); NRBC % 0.4 % (0.0-0.0); RBC 2.12 Mil/uL (3.80-5.20); RED CELL DISTRIBUTION WIDTH 16.9 % (11.5-14.5); WHITE BLOOD COUNT 13.6 K/uL (4.8-10.8)
--- NOTE | 2017-10-02 13:39 | CP.PCM.PN ---
Subjective - Date & Time of Evaluation Date of Evaluation: 10/02/17 Time of Evaluation: 13:37 - Subjective Subjective: pt doing well, pain controlled c/o chest congestion. nof /c, n/v/d. bw noted. heme/onc consult noted. Objective - Vital Signs/Intake and Output Vital Signs (last 24 hours): Temp Pulse Resp BP Pulse Ox 98.7 F 86 18 109/70 94 L 10/02/17 08:58 10/02/17 08:58 10/02/17 08:58 10/02/17 08:58 10/02/17 08:58 - Medications Medications: Current Medications Albuterol (Ventolin Hfa 90 Mcg/Actuation (8 G)) 2 puff IH Q6 PRN PRN Reason: Shortness of Breath Last Admin: 10/01/17 09:51 Dose: 2 puff Albuterol Sulfate (Albuterol 0.083% Inhal Ethel (2.5 Mg/3 Ml) Ud) 2.5 mg IH Q4 PRN PRN Reason: Shortness of Breath Last Admin: 10/02/17 03:18 Dose: 2.5 mg Diphenhydramine HCl (Benadryl) 50 mg IVP Q6 PRN PRN Reason: Itching / Pruritus Last Admin: 10/02/17 12:08 Dose: 50 mg Folic Acid (Folic Acid) 1 mg PO DAILY [facility] Last Admin: 10/02/17 08:39 Dose: 1 mg Hydroxyurea (Hydrea) 500 mg PO Q12 [facility] Last Admin: 10/02/17 08:39 Dose: 500 mg Morphine Sulfate (Morphine) 8 mg IVP Q4 PRN PRN Reason: Pain, severe (8-10) Last Admin: 10/02/17 11:06 Dose: 8 mg - Labs Labs: 10/02/17 05:30 10/02/17 05:30 - Constitutional Appears: Well, Non-toxic, No Acute Distress - Head Exam Head Exam: ATRAUMATIC, NORMAL INSPECTION, NORMOCEPHALIC - Eye Exam Eye Exam: EOMI, Normal appearance, PERRL Pupil Exam: NORMAL ACCOMODATION, PERRL - ENT Exam ENT Exam: Mucous Membranes Moist, Normal Exam - Neck Exam Neck Exam: Full ROM, Normal Inspection. absent: Lymphadenopathy - Respiratory Exam Respiratory Exam: Clear to Ausculation Bilateral, NORMAL BREATHING PATTERN Additional comments: some congestion heard - Cardiovascular Exam Cardiovascular Exam: REGULAR RHYTHM, RRR, +S1, +S2. absent: Murmur - GI/Abdominal Exam GI & Abdominal Exam: Soft, Normal Bowel Sounds. absent: Tenderness - Extremities Exam Extremities Exam: Full ROM, Normal Capillary Refill, Normal Inspection. absent : Joint Swelling, Pedal Edema - Back Exam Back Exam: NORMAL INSPECTION - Neurological Exam Neurological Exam: Alert, Awake, CN II-XII Intact, Normal Gait, Oriented x3 - Psychiatric Exam Psychiatric exam: Normal Affect, Normal Mood - Skin Skin Exam: Dry, Intact, Normal Color, Warm Assessment and Plan (1) Sickle cell pain crisis Status: Acute (2) DVT prophylaxis Status: Acute - Assessment and Plan (Free Text) Assessment: (1) Sickle cell pain crisis Assessment and Plan: pain control-ms 4mg q3 not helping pain, incr to 8mg q4h will monitor hemeonc ivf benadryl prn home meds monitor bw incl retic Status: Acute (2) DVT prophylaxis Assessment and Plan: scd nad ae hose ambulatioln Status: Acute 3-asthma, albuterol prn, advair
[2017-10-02] MEDS: Albuterol HFA 90 mcg/actuation (8 g) IH PRN (15:11)
[2017-10-02] MEDS: HYDROmorphone 0.5 mg/0.5 ml ISec IVP PRN (21:01)
[2017-10-03] MEDS: Albuterol HFA 90 mcg/actuation (8 g) IH PRN (01:24)
[2017-10-03] MEDS: HYDROmorphone 0.5 mg/0.5 ml ISec IVP PRN ×6 (01:27→21:55)
[2017-10-03] MEDS: Albuterol 0.083% Inhal Sol (2.5 mg/3 mL) UD IH PRN ×4 (04:32→18:14)
[2017-10-03 06:44] LABS: BASO # 0.1 K/uL (0.0-0.2); BASO % 0.5 % (0.0-2.0); EOS # 1.7 K/uL (0.0-0.7); EOS % 12.4 % (0.0-4.0); HEMOGLOBIN 7.4 g/dL (12.0-16.0); LYMPH # 3.4 K/uL (1.0-4.3); LYMPH % 24.9 % (20.0-40.0); MEAN CORPUSCULAR HEMOGLOBIN 36.9 pg (27.0-31.0); MEAN CORPUSCULAR HGB CONC 35.1 g/dL (33.0-37.0); MEAN PLATELET VOLUME 7.9 fl (7.2-11.7); MONO # 1.1 K/uL (0.0-0.8); MONO % 7.9 % (0.0-10.0); NEUT # 7.4 K/uL (1.8-7.0); NEUT % 54.3 % (50.0-75.0); NRBC % 0.4 % (0.0-0.0); RED CELL DISTRIBUTION WIDTH 16.6 % (11.5-14.5); WHITE BLOOD COUNT 13.6 K/uL (4.8-10.8)
[2017-10-03] MEDS: DiphenhydrAMINE 50 mg/ml Inj IVP PRN ×3 (06:45→18:56)
[2017-10-03 06:49] LABS: MEAN CELL VOLUME 105.4 fl (81.0-99.0)
[2017-10-03 07:04] LABS: ALB/GLOB RATIO 1.3 (1.0-2.1); ALBUMIN 3.6 g/dL (3.5-5.0); ALT/SGPT 33 U/L (9-52); AST/SGOT 32 U/L (14-36); BLOOD UREA NITROGEN 5 mg/dl (7-17); CALCIUM 8.5 mg/dL (8.4-10.2); GFR AFRICAN-AMERICAN > 60; GFR NON-AFRICAN AMERICAN > 60
--- NOTE | 2017-10-03 07:57 | CP.PCM.PN ---
Subjective - Date & Time of Evaluation Date of Evaluation: 10/03/17 Time of Evaluation: 07:55 - Subjective Subjective: pt sleeping, per partner just fell asleep after a night of pain. no f/c, n/v/d. bw noted. heme/onc consult appriciated. retic normalizing. Objective - Vital Signs/Intake and Output Vital Signs (last 24 hours): Temp Pulse Resp BP Pulse Ox 98.5 F 77 20 101/69 100 10/03/17 00:18 10/03/17 00:18 10/03/17 00:18 10/03/17 00:18 10/03/17 00:18 - Medications Medications: Current Medications Albuterol (Ventolin Hfa 90 Mcg/Actuation (8 G)) 2 puff IH Q6 PRN PRN Reason: Shortness of Breath Last Admin: 10/03/17 01:24 Dose: 2 puff Albuterol Sulfate (Albuterol 0.083% Inhal Ethel (2.5 Mg/3 Ml) Ud) 2.5 mg IH Q4 PRN PRN Reason: Shortness of Breath Last Admin: 10/03/17 04:32 Dose: 2.5 mg Diphenhydramine HCl (Benadryl) 50 mg IVP Q6 PRN PRN Reason: Itching / Pruritus Last Admin: 10/03/17 06:45 Dose: 50 mg Folic Acid (Folic Acid) 1 mg PO DAILY [facility] Last Admin: 10/02/17 08:39 Dose: 1 mg Hydromorphone HCl (Dilaudid) 1 mg IVP Q3 PRN PRN Reason: Pain, severe (8-10) Last Admin: 10/03/17 06:17 Dose: 1 mg Hydroxyurea (Hydrea) 500 mg PO Q12 [facility] Last Admin: 10/02/17 21:49 Dose: 500 mg Fluticasone/Salmeterol (Advair Diskus 250/50) 1 puff IH Q12 [facility] - Labs Labs: 10/03/17 06:25 10/03/17 06:25 - Constitutional Appears: Well, Non-toxic, No Acute Distress - Head Exam Head Exam: ATRAUMATIC, NORMAL INSPECTION, NORMOCEPHALIC - Eye Exam Eye Exam: EOMI, Normal appearance, PERRL Pupil Exam: NORMAL ACCOMODATION, PERRL - ENT Exam ENT Exam: Mucous Membranes Moist, Normal Exam - Neck Exam Neck Exam: Full ROM, Normal Inspection. absent: Lymphadenopathy - Respiratory Exam Respiratory Exam: Clear to Ausculation Bilateral, NORMAL BREATHING PATTERN - Cardiovascular Exam Cardiovascular Exam: REGULAR RHYTHM, RRR, +S1, +S2. absent: Murmur - GI/Abdominal Exam GI & Abdominal Exam: Soft, Normal Bowel Sounds. absent: Tenderness - Extremities Exam Extremities Exam: Full ROM, Normal Capillary Refill. absent: Joint Swelling, Pedal Edema - Back Exam Back Exam: NORMAL INSPECTION - Neurological Exam Neurological Exam: Alert, Awake, CN II-XII Intact, Normal Gait, Oriented x3 - Psychiatric Exam Psychiatric exam: Normal Affect, Normal Mood - Skin Skin Exam: Dry, Intact, Normal Color, Warm Assessment and Plan (1) Sickle cell pain crisis Assessment & Plan: dialaudid q3. was initially on mso4 but hospital no longer has in stock ivf monitor bw heme/onc consult benadryl for pruritis Status: Acute (2) DVT prophylaxis Assessment & Plan: scd and ae hose ambulation Status: Acute (3) Asthma, mild intermittent, well-controlled Assessment & Plan: albuterol prn advair to be added. no s/s infection at this time Status: Acute
[2017-10-03] MEDS: Sodium Chloride 0.9% 1,000 ML IV SCH (09:53)
[2017-10-03] MEDS: Fluticasone-Salmeterol 250-50mcg Diskus IH SCH ×2 (09:55→21:07)
--- NOTE | 2017-10-03 16:19 | CP.PCM.CON ---
History of Present Illness - History of Present Illness History of Present Illness: 27 year old female with a history of sickle cell anemia admitted with sickle pain crisis. The patient reports generalized body pain with increasing pain involving her right shoulder. Pain is sharp pain, intermittent, VAS 8/10. THere are no specific aggravating factors and is improved with pain medication. She feels her pain was incited by cold weather. She denies shortness of breath and chest pain. She has no fevers or chills. Past Patient History - Infectious Disease Hx of Infectious Diseases: None - Past Medical History & Family History Past Medical History?: Yes - Past Social History Smoking Status: Never Smoked - CARDIAC Hx Cardiac Disorders: No - PULMONARY Hx Respiratory Disorders: Yes Hx Asthma: Yes - NEUROLOGICAL Hx Neurological Disorder: No Hx Alzheimer's Disease: No Hx Dementia: No Hx Migraine: No Hx Multiple Sclerosis: No Hx Parkinson's Disease: No Hx Seizures: No Hx Transient Ischemic Attacks (TIA): No - HEENT Hx HEENT Problems: Yes - RENAL Hx Chronic Kidney Disease: No - ENDOCRINE/METABOLIC Hx Endocrine Disorders: No Hx Hyperthyroidism: No Hx Hypothyroidism: No - HEMATOLOGICAL/ONCOLOGICAL Hx Blood Disorders: Yes Hx Sickle Cell Disease: Yes - INTEGUMENTARY Hx Dermatological Problems: No - MUSCULOSKELETAL/RHEUMATOLOGICAL Hx Musculoskeletal Disorders: No Hx Falls: No - GASTROINTESTINAL Hx Gastrointestinal Disorders: No Hx Crohn's Disease: No Hx Diverticulitis: No Hx Gall Bladder Disease: No Hx Gastritis: No Hx Pancreatitis: No - GENITOURINARY/GYNECOLOGICAL Hx Genitourinary Disorders: No Hx Sexually Transmitted Disorders: No - PSYCHIATRIC Hx Psychophysiologic Disorder: No Hx Substance Use: No - SURGICAL HISTORY Hx Surgeries: Yes Hx Appendectomy: No Hx Carotid Endarterectomy: No Hx Cholecystectomy: Yes Hx Coronary Artery Bypass Graft: No Hx Coronary Stent: No Hx Splenectomy: Yes Hx Tonsillectomy: No - ANESTHESIA Hx Anesthesia: Yes Hx Anesthesia Reactions: No Hx Malignant Hyperthermia: No Has any member of the family had a problem w/ anesthesia?: No Meds Allergies/Adverse Reactions: Allergies Allergy/AdvReac Type Severity Reaction Status Date / Time latex Allergy RASH Verified 06/28/16 04:33 [email or web address] Allergy RASH Verified 06/28/16 04:33 meperidine HCl [From Demerol] Allergy RASH Verified 06/28/16 04:33 - Medications Medications: Current Medications Albuterol (Ventolin Hfa 90 Mcg/Actuation (8 G)) 2 puff IH Q6 PRN PRN Reason: Shortness of Breath Last Admin: 10/03/17 01:24 Dose: 2 puff Albuterol Sulfate (Albuterol 0.083% Inhal Ethel (2.5 Mg/3 Ml) Ud) 2.5 mg IH Q4 PRN PRN Reason: Shortness of Breath Last Admin: 10/03/17 11:48 Dose: 2.5 mg Diphenhydramine HCl (Benadryl) 50 mg IVP Q6 PRN PRN Reason: Itching / Pruritus Last Admin: 10/03/17 12:39 Dose: 50 mg Folic Acid (Folic Acid) 1 mg PO DAILY [facility] Last Admin: 10/03/17 09:55 Dose: 1 mg Hydromorphone HCl (Dilaudid) 1 mg IVP Q3 PRN PRN Reason: Pain, severe (8-10) Last Admin: 10/03/17 13:38 Dose: 1 mg Hydroxyurea (Hydrea) 500 mg PO Q12 [facility] Last Admin: 10/03/17 09:55 Dose: 500 mg Sodium Chloride (Sodium Chloride 0.9%) 1,000 mls @ 150 mls/hr IV .Q6H40M [facility] Stop: 10/04/17 09:41 Last Admin: 10/03/17 09:53 Dose: 150 mls/hr Fluticasone/Salmeterol (Advair Diskus 250/50) 1 puff IH Q12 [facility] Last Admin: 10/03/17 09:55 Dose: 1 puff Physical Exam - Constitutional Appears: No Acute Distress - Extremities Exam Additional comments: UE FROM handgrip 5/5, sensation intact DP flex 5/5 sensation intact mild tenderness to palpation over right triceps c/d/i Results - Vital Signs Recent Vital Signs: Last Vital Signs Temp 98.4 F 10/03/17 16:15 Pulse 100 H 10/03/17 16:15 Resp 18 10/03/17 16:15 BP 100/56 L 10/03/17 16:15 Pulse Ox 96 10/03/17 16:15 - Labs Result Diagrams: 10/03/17 06:25 10/03/17 06:25 Labs: Laboratory Results - last 24 hr 05/14/18 05/14/18 06:25 06:25 WBC 13.6 H RBC 2.00 L Hgb 7.4 L Hct 21.1 L MCV 105.4 H MCH 36.9 H MCHC 35.1 RDW 16.6 H Plt Count 452 H MPV 7.9 Neut % (Auto) 54.3 Lymph % (Auto) 24.9 [place] % (Auto) 7.9 Eos % (Auto) 12.4 H Baso % (Auto) 0.5 Neut # (Auto) 7.4 H Lymph # (Auto) 3.4 [place] # (Auto) 1.1 H Eos # (Auto) 1.7 H Baso # (Auto) 0.1 Retic Count 11.8 H Sodium 141 Potassium 3.7 Chloride 106 Carbon Dioxide 23 Anion Gap 16 BUN 5 L Creatinine 0.4 L Est GFR ( Amer) > 60 Est GFR (Non-Af Amer) > 60 Random Glucose 84 Calcium 8.5 Total Bilirubin 2.6 H AST 32 ALT 33 Alkaline Phosphatase 44 Total Protein 6.2 L Albumin 3.6 Globulin 2.6 Albumin/Globulin Ratio 1.3 Assessment & Plan - Assessment and Plan (Free Text) Assessment: 27yF with sickle cell crisis and generalized body pain Plan: 1 Continue current rx, monitor CBC, supplemental o2 and IV hydration 2. PT 3. Care as per primary team
--- NOTE | 2017-10-03 17:01 | CARD ---
APPROVED REPORT EKG Measurement Heart [id number] <Conclusion> Normal sinus rhythm Normal ECG
[2017-10-04] MEDS: Albuterol 0.083% Inhal Sol (2.5 mg/3 mL) UD IH PRN ×5 (00:38→23:42)
[2017-10-04] MEDS: HYDROmorphone 0.5 mg/0.5 ml ISec IVP PRN ×4 (00:52→11:01)
[2017-10-04] MEDS: DiphenhydrAMINE 50 mg/ml Inj IVP PRN ×4 (00:55→19:50)
[2017-10-04 06:45] LABS: BASO # 0.1 K/uL (0.0-0.2); BASO % 0.7 % (0.0-2.0); EOS # 1.5 K/uL (0.0-0.7); EOS % 11.1 % (0.0-4.0); LYMPH # 4.3 K/uL (1.0-4.3); LYMPH % 33.1 % (20.0-40.0); MEAN CELL VOLUME 106.6 fl (81.0-99.0); MEAN CORPUSCULAR HEMOGLOBIN 37.2 pg (27.0-31.0); MEAN CORPUSCULAR HGB CONC 34.9 g/dL (33.0-37.0); MEAN PLATELET VOLUME 8.2 fl (7.2-11.7); MONO # 1.3 K/uL (0.0-0.8); MONO % 10.2 % (0.0-10.0); NEUT # 5.9 K/uL (1.8-7.0); NEUT % 44.9 % (50.0-75.0); NRBC % 0.2 % (0.0-0.0); RBC 2.04 Mil/uL (3.80-5.20); RED CELL DISTRIBUTION WIDTH 17.7 % (11.5-14.5); WHITE BLOOD COUNT 13.1 K/uL (4.8-10.8)
[2017-10-04 06:53] LABS: ALB/GLOB RATIO 1.3 (1.0-2.1); ALBUMIN 3.8 g/dL (3.5-5.0); ALT/SGPT 40 U/L (9-52); AST/SGOT 52 U/L (14-36); BLOOD UREA NITROGEN 5 mg/dl (7-17); CALCIUM 9.1 mg/dL (8.4-10.2); GFR AFRICAN-AMERICAN > 60; GFR NON-AFRICAN AMERICAN > 60
[2017-10-04 06:58] LABS: HEMOGLOBIN 7.6 g/dL (12.0-16.0)
[2017-10-04] MEDS ORDERED: Promethazine 6.25 MG/5 ML CUP PO PRN (08:23)
--- NOTE | 2017-10-04 08:23 | CP.PCM.PN ---
Subjective - Date & Time of Evaluation Date of Evaluation: 10/04/17 Time of Evaluation: 08:21 - Subjective Subjective: pt sitting up in bed. no f/c, n/v/d. c/o congestion/cough. states dilaudid 1mg is helping but not fully. heme/onc saw pt and did not change meds heme/onc didnt change meds either. all bw noted. Objective - Vital Signs/Intake and Output Vital Signs (last 24 hours): Temp Pulse Resp BP Pulse Ox 98.1 F 95 H 18 98/57 L 96 10/04/17 00:30 10/04/17 00:30 10/04/17 00:30 10/04/17 00:30 10/04/17 00:30 - Medications Medications: Current Medications Albuterol (Ventolin Hfa 90 Mcg/Actuation (8 G)) 2 puff IH Q6 PRN PRN Reason: Shortness of Breath Last Admin: 10/03/17 01:24 Dose: 2 puff Albuterol Sulfate (Albuterol 0.083% Inhal Ethel (2.5 Mg/3 Ml) Ud) 2.5 mg IH Q4 PRN PRN Reason: Shortness of Breath Last Admin: 10/04/17 07:22 Dose: 2.5 mg Diphenhydramine HCl (Benadryl) 50 mg IVP Q6 PRN PRN Reason: Itching / Pruritus Last Admin: 10/04/17 07:35 Dose: 50 mg Folic Acid (Folic Acid) 1 mg PO DAILY [facility] Last Admin: 10/03/17 09:55 Dose: 1 mg Hydromorphone HCl (Dilaudid) 1 mg IVP Q3 PRN PRN Reason: Pain, severe (8-10) Last Admin: 10/04/17 07:32 Dose: 1 mg Hydroxyurea (Hydrea) 500 mg PO Q12 [facility] Last Admin: 10/03/17 21:08 Dose: 500 mg Sodium Chloride (Sodium Chloride 0.9%) 1,000 mls @ 150 mls/hr IV .Q6H40M [facility] Stop: 10/04/17 09:41 Last Admin: 10/04/17 00:00 Dose: 150 mls/hr Fluticasone/Salmeterol (Advair Diskus 250/50) 1 puff IH Q12 [facility] Last Admin: 10/03/17 21:07 Dose: 1 puff - Labs Labs: 10/04/17 05:40 10/04/17 05:40 - Constitutional Appears: Well, Non-toxic, No Acute Distress - Head Exam Head Exam: ATRAUMATIC, NORMAL INSPECTION, NORMOCEPHALIC - Eye Exam Eye Exam: EOMI, Normal appearance, PERRL Pupil Exam: NORMAL ACCOMODATION, PERRL - ENT Exam ENT Exam: Mucous Membranes Moist, Normal Exam - Neck Exam Neck Exam: Full ROM, Normal Inspection. absent: Lymphadenopathy - Respiratory Exam Respiratory Exam: Clear to Ausculation Bilateral, NORMAL BREATHING PATTERN - Cardiovascular Exam Cardiovascular Exam: REGULAR RHYTHM, RRR, +S1, +S2. absent: Murmur - GI/Abdominal Exam GI & Abdominal Exam: Soft, Normal Bowel Sounds. absent: Tenderness - Extremities Exam Extremities Exam: Full ROM, Normal Capillary Refill, Normal Inspection. absent : Joint Swelling, Pedal Edema - Back Exam Back Exam: NORMAL INSPECTION - Neurological Exam Neurological Exam: Alert, Awake, CN II-XII Intact, Normal Gait, Oriented x3 - Psychiatric Exam Psychiatric exam: Normal Affect, Normal Mood - Skin Skin Exam: Dry, Intact, Normal Color, Warm Assessment and Plan (1) Sickle cell pain crisis Status: Acute (2) DVT prophylaxis Status: Acute (3) Asthma, mild intermittent, well-controlled Status: Acute - Assessment and Plan (Free Text) Assessment: (1) Sickle cell pain crisis Assessment & Plan: dialaudid q3. was initially on mso4 but hospital no longer has in stock ivf monitor bw heme/onc consult benadryl for pruritis pm/r Status: Acute (2) DVT prophylaxis Assessment & Plan: scd and ae hose ambulation Status: Acute (3) Asthma, mild intermittent, well-controlled Assessment & Plan: albuterol prn advair to be added. no s/s infection at this time add phenergen for cough, mucinex for congestion Status: Acute
[2017-10-04] MEDS: Fluticasone-Salmeterol 250-50mcg Diskus IH SCH ×2 (08:37→22:59)
[2017-10-04] MEDS: Sodium Chloride 0.9% 1,000 ML IV SCH ×3 (08:37→17:55)
[2017-10-04] MEDS ORDERED: HYDROmorphone 1 mg/ml ISec IVP PRN (11:00)
[2017-10-04] MEDS: guaiFENesin-DM 600-30 mg ER Tab PO SCH ×2 (11:06→16:13)
--- NOTE | 2017-10-04 13:46 | CP.PCM.PN ---
Subjective - Date & Time of Evaluation Date of Evaluation: 10/04/17 Time of Evaluation: 12:00 - Subjective Subjective: Patient complains of whole body pain, most severe in right shoulder and arm. She's currently on Dilaudid 1mg IV, but complains it's not enough and demands 2mg. At home she takes Dilaudid 2mg, 1-2 tablets, for her chronic pain. It was explained to her that there is hospital-wide dilaudid shortage and that additional opioids will need to in PO form. She doesn't want to try any PO pain medications and insists on Dilaudid only. Further discussion was impossible as she then became combative and verbally abusive. Prior to leaving the room, I told the patient that she could elect for continuing Dilaudid 1mg IV with PO supplements or switching to higher dose Morphine. About half an hour later the nurse then called to say that patient was agreeable to trying Morphine. Objective - Vital Signs/Intake and Output Vital Signs (last 24 hours): Temp Pulse Resp BP Pulse Ox 98.2 F 97 H 18 98/61 L 98 10/04/17 08:26 10/04/17 08:26 10/04/17 08:26 10/04/17 08:26 10/04/17 08:26 - Medications Medications: Current Medications Albuterol (Ventolin Hfa 90 Mcg/Actuation (8 G)) 2 puff IH Q6 PRN PRN Reason: Shortness of Breath Last Admin: 10/03/17 01:24 Dose: 2 puff Albuterol Sulfate (Albuterol 0.083% Inhal Ethel (2.5 Mg/3 Ml) Ud) 2.5 mg IH Q4 PRN PRN Reason: Shortness of Breath Last Admin: 10/04/17 07:22 Dose: 2.5 mg Diphenhydramine HCl (Benadryl) 50 mg IVP Q6 PRN PRN Reason: Itching / Pruritus Last Admin: 10/04/17 07:35 Dose: 50 mg Docusate Sodium (Colace) 100 mg PO BID [facility] Last Admin: 10/04/17 11:05 Dose: 100 mg Folic Acid (Folic Acid) 1 mg PO DAILY [facility] Last Admin: 10/04/17 08:38 Dose: 1 mg Guaifenesin/Dextromethorphan (Mucinex-Dm 600-30 Mg) 1 tab PO BID [facility] Last Admin: 10/04/17 11:06 Dose: 1 tab Hydromorphone HCl (Dilaudid) 4 mg PO Q4 PRN PRN Reason: Pain, severe (8-10) Hydroxyurea (Hydrea) 500 mg PO Q12 [facility] Last Admin: 10/04/17 08:38 Dose: 500 mg Morphine Sulfate (Morphine) 6 mg IVP Q3 PRN PRN Reason: Pain, severe (8-10) Last Admin: 10/04/17 13:04 Dose: 6 mg Promethazine HCl (Phenergan Syrup) 6.25 mg PO Q6 PRN PRN Reason: Cough Fluticasone/Salmeterol (Advair Diskus 250/50) 1 puff IH Q12 [facility] Last Admin: 10/04/17 08:37 Dose: 1 puff - Labs Labs: 10/04/17 05:40 10/04/17 05:40 - Constitutional Appears: Well, No Acute Distress, Younger Than Stated Age - Respiratory Exam Respiratory Exam: NORMAL BREATHING PATTERN - Cardiovascular Exam Cardiovascular Exam: REGULAR RHYTHM Assessment and Plan (1) Sickle cell pain crisis Assessment & Plan: 27 yo woman w/ chronic pain and Sickle Cell disease, in likely crisis. - start Dilaudid 4mg PO q4h PRN - continue IV opioids for breakthrough pain as well, for now, MOrphine 6mg IV q3h PRN - f/u heme recommendation Status: Acute
--- NOTE | 2017-10-04 20:36 | CP.PCM.PN ---
Subjective - Date & Time of Evaluation Date of Evaluation: 10/04/17 Time of Evaluation: 09:15 - Subjective Subjective: Has pain in right shoulder, upset pain medication not increased seen by pain management. Objective - Vital Signs/Intake and Output Vital Signs (last 24 hours): Temp Pulse Resp BP Pulse Ox 97.3 F L 97 H 18 109/65 95 10/04/17 16:42 10/04/17 16:42 10/04/17 16:42 10/04/17 16:42 10/04/17 16:42 - Medications Medications: Current Medications Albuterol (Ventolin Hfa 90 Mcg/Actuation (8 G)) 2 puff IH Q6 PRN PRN Reason: Shortness of Breath Last Admin: 10/03/17 01:24 Dose: 2 puff Albuterol Sulfate (Albuterol 0.083% Inhal Ethel (2.5 Mg/3 Ml) Ud) 2.5 mg IH Q4 PRN PRN Reason: Shortness of Breath Last Admin: 10/04/17 20:01 Dose: 2.5 mg Diphenhydramine HCl (Benadryl) 50 mg IVP Q6 PRN PRN Reason: Itching / Pruritus Last Admin: 10/04/17 19:50 Dose: 50 mg Docusate Sodium (Colace) 100 mg PO BID [facility] Last Admin: 10/04/17 16:10 Dose: 100 mg Folic Acid (Folic Acid) 1 mg PO DAILY [facility] Last Admin: 10/04/17 08:38 Dose: 1 mg Guaifenesin/Dextromethorphan (Mucinex-Dm 600-30 Mg) 1 tab PO BID [facility] Last Admin: 10/04/17 16:13 Dose: 1 tab Hydromorphone HCl (Dilaudid) 4 mg PO Q4 PRN PRN Reason: Pain, severe (8-10) Hydroxyurea (Hydrea) 500 mg PO Q12 [facility] Last Admin: 10/04/17 08:38 Dose: 500 mg Sodium Chloride (Sodium Chloride 0.9%) 1,000 mls @ 150 mls/hr IV .Q6H40M [facility] Stop: 10/05/17 17:52 Last Admin: 10/04/17 17:55 Dose: 150 mls/hr Morphine Sulfate (Morphine) 6 mg IVP Q3 PRN PRN Reason: Pain, severe (8-10) Last Admin: 10/04/17 19:10 Dose: 6 mg Promethazine HCl (Phenergan Syrup) 6.25 mg PO Q6 PRN PRN Reason: Cough Fluticasone/Salmeterol (Advair Diskus 250/50) 1 puff IH Q12 [facility] Last Admin: 10/04/17 08:37 Dose: 1 puff - Labs Labs: 10/04/17 05:40 10/04/17 05:40 - Head Exam Head Exam: ATRAUMATIC - Eye Exam Eye Exam: Normal appearance - Respiratory Exam Respiratory Exam: NORMAL BREATHING PATTERN - Cardiovascular Exam Cardiovascular Exam: +S1, +S2 - GI/Abdominal Exam GI & Abdominal Exam: Normal Bowel Sounds Assessment and Plan (1) Sickle cell pain crisis Assessment & Plan: IV fluids, folic acid, o2 via NC, pain meds no current transfusion indication Status: Acute (2) Iron overload due to repeated red blood cell transfusions Assessment & Plan: minimize transfusion support not compliant with outpatient chelation Status: Acute (3) Sickle cell anemia Assessment & Plan: folic acid and hydrea Status: Acute
[2017-10-05] MEDS: DiphenhydrAMINE 50 mg/ml Inj IVP PRN ×4 (01:55→20:11)
[2017-10-05] MEDS: Sodium Chloride 0.9% 1,000 ML IV SCH ×3 (01:57→16:29)
[2017-10-05 06:53] LABS: BASO # 0.1 K/uL (0.0-0.2); BASO % 1.1 % (0.0-2.0); EOS # 1.5 K/uL (0.0-0.7); EOS % 11.9 % (0.0-4.0); HEMOGLOBIN 7.5 g/dL (12.0-16.0); LYMPH # 3.8 K/uL (1.0-4.3); LYMPH % 30.4 % (20.0-40.0); MEAN CELL VOLUME 106.8 fl (81.0-99.0); MEAN CORPUSCULAR HGB CONC 35.6 g/dL (33.0-37.0); MEAN PLATELET VOLUME 8.5 fl (7.2-11.7); MONO # 1.1 K/uL (0.0-0.8); MONO % 8.7 % (0.0-10.0); NEUT # 5.9 K/uL (1.8-7.0); NEUT % 47.9 % (50.0-75.0); NRBC % 0.8 % (0.0-0.0); RBC 1.98 Mil/uL (3.80-5.20); RED CELL DISTRIBUTION WIDTH 17.9 % (11.5-14.5); WHITE BLOOD COUNT 12.4 K/uL (4.8-10.8)
[2017-10-05 06:59] LABS: ALB/GLOB RATIO 1.3 (1.0-2.1); ALBUMIN 3.7 g/dL (3.5-5.0); ALT/SGPT 42 U/L (9-52); AST/SGOT 64 U/L (14-36); BLOOD UREA NITROGEN 6 mg/dl (7-17); CALCIUM 8.7 mg/dL (8.4-10.2); GFR AFRICAN-AMERICAN > 60; GFR NON-AFRICAN AMERICAN > 60
[2017-10-05] MEDS: Albuterol 0.083% Inhal Sol (2.5 mg/3 mL) UD IH PRN (07:54)
--- NOTE | 2017-10-05 08:54 | CP.PCM.PN ---
Subjective - Date & Time of Evaluation Date of Evaluation: 10/05/17 Time of Evaluation: 08:52 - Subjective Subjective: pt still w/ sickle cell pain. c/o r arm swelling-no swelling present. distal pms intact. bw noted heme/onc and pain consult noted pt very agitated about her pain control. cursing/yelling at staff yesterday needing a code gonzalez called. spent excessvie time this am discussing plan of care Objective - Vital Signs/Intake and Output Vital Signs (last 24 hours): Temp Pulse Resp BP Pulse Ox 98.0 F 76 20 98/63 L 99 10/05/17 08:24 10/05/17 08:24 10/05/17 08:24 10/05/17 08:24 10/05/17 08:24 - Medications Medications: Current Medications Albuterol (Ventolin Hfa 90 Mcg/Actuation (8 G)) 2 puff IH Q6 PRN PRN Reason: Shortness of Breath Last Admin: 10/03/17 01:24 Dose: 2 puff Albuterol Sulfate (Albuterol 0.083% Inhal Ethel (2.5 Mg/3 Ml) Ud) 2.5 mg IH Q4 PRN PRN Reason: Shortness of Breath Last Admin: 10/05/17 07:54 Dose: 2.5 mg Diphenhydramine HCl (Benadryl) 50 mg IVP Q6 PRN PRN Reason: Itching / Pruritus Last Admin: 10/05/17 08:14 Dose: 50 mg Docusate Sodium (Colace) 100 mg PO BID [facility] Last Admin: 10/04/17 16:10 Dose: 100 mg Folic Acid (Folic Acid) 1 mg PO DAILY [facility] Last Admin: 10/04/17 08:38 Dose: 1 mg Guaifenesin/Dextromethorphan (Mucinex-Dm 600-30 Mg) 1 tab PO BID [facility] Last Admin: 10/04/17 16:13 Dose: 1 tab Hydromorphone HCl (Dilaudid) 4 mg PO Q4 PRN PRN Reason: Pain, severe (8-10) Hydroxyurea (Hydrea) 500 mg PO Q12 [facility] Last Admin: 10/04/17 22:59 Dose: 500 mg Sodium Chloride (Sodium Chloride 0.9%) 1,000 mls @ 150 mls/hr IV .Q6H40M [facility] Stop: 10/05/17 17:52 Last Admin: 10/05/17 01:57 Dose: 150 mls/hr Morphine Sulfate (Morphine) 6 mg IVP Q3 PRN PRN Reason: Pain, severe (8-10) Last Admin: 10/05/17 07:45 Dose: 6 mg Promethazine HCl (Phenergan Syrup) 6.25 mg PO Q6 PRN PRN Reason: Cough Fluticasone/Salmeterol (Advair Diskus 250/50) 1 puff IH Q12 [facility] Last Admin: 10/04/17 22:59 Dose: 1 puff - Labs Labs: 10/05/17 05:25 10/05/17 05:25 - Constitutional Appears: Well, Non-toxic, No Acute Distress - Head Exam Head Exam: ATRAUMATIC, NORMAL INSPECTION, NORMOCEPHALIC - Eye Exam Eye Exam: EOMI, Normal appearance, PERRL Pupil Exam: NORMAL ACCOMODATION, PERRL - ENT Exam ENT Exam: Mucous Membranes Moist, Normal Exam - Neck Exam Neck Exam: Full ROM, Normal Inspection. absent: Lymphadenopathy - Respiratory Exam Respiratory Exam: Clear to Ausculation Bilateral, NORMAL BREATHING PATTERN - Cardiovascular Exam Cardiovascular Exam: REGULAR RHYTHM, RRR, +S1, +S2. absent: Murmur - GI/Abdominal Exam GI & Abdominal Exam: Soft, Normal Bowel Sounds. absent: Tenderness - Extremities Exam Extremities Exam: Full ROM, Normal Capillary Refill, Normal Inspection, Tenderness. absent: Joint Swelling, Pedal Edema - Back Exam Back Exam: NORMAL INSPECTION - Neurological Exam Neurological Exam: Alert, Awake, CN II-XII Intact, Normal Gait, Oriented x3 - Psychiatric Exam Psychiatric exam: Normal Affect, Normal Mood - Skin Skin Exam: Dry, Intact, Normal Color, Warm Assessment and Plan (1) Sickle cell pain crisis Status: Acute (2) DVT prophylaxis Status: Acute (3) Asthma, mild intermittent, well-controlled Status: Acute - Assessment and Plan (Free Text) Assessment: (1) Sickle cell pain crisis Assessment & Plan: dialaudid q3. was initially on mso4 but hospital no longer has in stock, now back on morphine as hospital is low on dilaudid dialudid po ordered ivf monitor bw heme/onc consult benadryl for pruritis pm/r Status: Acute (2) DVT prophylaxis Assessment & Plan: scd and ae hose ambulation Status: Acute (3) Asthma, mild intermittent, well-controlled Assessment & Plan: albuterol prn advair to be added. no s/s infection at this time add phenergen for cough, mucinex for congestion Status: Acute
[2017-10-05] MEDS: Fluticasone-Salmeterol 250-50mcg Diskus IH SCH ×2 (09:33→21:42)
[2017-10-05] MEDS: guaiFENesin-DM 600-30 mg ER Tab PO SCH ×2 (09:33→16:29)
--- NOTE | 2017-10-05 16:11 | CP.PCM.PN ---
Subjective - Date & Time of Evaluation Date of Evaluation: 10/05/17 Time of Evaluation: 16:05 - Subjective Subjective: Patient is complaining that Morphine 6mg IV isn't sufficient in treating her pain, but she's yet to start Dilaudid PO. She's mainly upset that she was told in a concrete manner what her pain regimen was. It was explained to her in detail and she expresses understanding. It was relayed to her that as of right now Dilaudid IV is only restricted to PACU use for post-op patients. Objective - Vital Signs/Intake and Output Vital Signs (last 24 hours): Temp Pulse Resp BP Pulse Ox 98.0 F 76 20 98/63 L 99 10/05/17 08:24 10/05/17 08:24 10/05/17 08:24 10/05/17 08:24 10/05/17 08:24 - Medications Medications: Current Medications Albuterol (Ventolin Hfa 90 Mcg/Actuation (8 G)) 2 puff IH Q6 PRN PRN Reason: Shortness of Breath Last Admin: 10/03/17 01:24 Dose: 2 puff Albuterol Sulfate (Albuterol 0.083% Inhal Ethel (2.5 Mg/3 Ml) Ud) 2.5 mg IH Q4 PRN PRN Reason: Shortness of Breath Last Admin: 10/05/17 07:54 Dose: 2.5 mg Diphenhydramine HCl (Benadryl) 50 mg IVP Q6 PRN PRN Reason: Itching / Pruritus Last Admin: 10/05/17 14:07 Dose: 50 mg Docusate Sodium (Colace) 100 mg PO BID [facility] Last Admin: 10/05/17 09:33 Dose: 100 mg Folic Acid (Folic Acid) 1 mg PO DAILY [facility] Last Admin: 10/05/17 09:33 Dose: 1 mg Guaifenesin/Dextromethorphan (Mucinex-Dm 600-30 Mg) 1 tab PO BID [facility] Last Admin: 10/05/17 09:33 Dose: 1 tab Hydromorphone HCl (Dilaudid) 4 mg PO Q4 PRN PRN Reason: Pain, severe (8-10) Hydroxyurea (Hydrea) 500 mg PO Q12 [facility] Last Admin: 10/05/17 09:33 Dose: 500 mg Sodium Chloride (Sodium Chloride 0.9%) 1,000 mls @ 150 mls/hr IV .Q6H40M [facility] Stop: 10/05/17 17:52 Last Admin: 10/05/17 01:57 Dose: 150 mls/hr Morphine Sulfate (Morphine) 6 mg IVP Q3 PRN PRN Reason: Pain, severe (8-10) Last Admin: 10/05/17 13:33 Dose: 6 mg Promethazine HCl (Phenergan Syrup) 6.25 mg PO Q6 PRN PRN Reason: Cough Last Admin: 10/05/17 09:33 Dose: 6.25 mg Fluticasone/Salmeterol (Advair Diskus 250/50) 1 puff IH Q12 [facility] Last Admin: 10/05/17 09:33 Dose: 1 puff - Labs Labs: 10/05/17 05:25 10/05/17 05:25 - Respiratory Exam Respiratory Exam: NORMAL BREATHING PATTERN - Cardiovascular Exam Cardiovascular Exam: REGULAR RHYTHM Assessment and Plan (1) Sickle cell pain crisis Assessment & Plan: 27 yo woman with chronic pain, in likely sickle cell crisis. Has high opioid requirement due to tolerance, but pain regimen is restricted due to Dilaudid IV shortage. - continue Morphine 6mg IV q3h PRN - continue Dilaudid 4mg PO q4h PRN - patient may return to home meds upon discharge Status: Acute
[2017-10-05 16:49] VITALS: RESP 18
[2017-10-05] MEDS: Albuterol HFA 90 mcg/actuation (8 g) IH PRN (19:07)
--- NOTE | 2017-10-05 23:15 | CP.PCM.PN ---
Subjective - Date & Time of Evaluation Date of Evaluation: 10/05/17 Time of Evaluation: 09:30 - Subjective Subjective: Events noted, patient has some right shoulder/arm pain. seen by pain management Objective - Vital Signs/Intake and Output Vital Signs (last 24 hours): Temp Pulse Resp BP Pulse Ox 98.4 F 77 18 106/67 99 10/05/17 17:00 10/05/17 17:00 10/05/17 17:00 10/05/17 17:00 10/05/17 17:00 - Medications Medications: Current Medications Albuterol (Ventolin Hfa 90 Mcg/Actuation (8 G)) 2 puff IH Q6 PRN PRN Reason: Shortness of Breath Last Admin: 10/05/17 19:07 Dose: 2 puff Albuterol Sulfate (Albuterol 0.083% Inhal Ethel (2.5 Mg/3 Ml) Ud) 2.5 mg IH Q4 PRN PRN Reason: Shortness of Breath Last Admin: 10/05/17 07:54 Dose: 2.5 mg Diphenhydramine HCl (Benadryl) 50 mg IVP Q6 PRN PRN Reason: Itching / Pruritus Last Admin: 10/05/17 20:11 Dose: 50 mg Docusate Sodium (Colace) 100 mg PO BID [facility] Last Admin: 10/05/17 17:35 Dose: 100 mg Folic Acid (Folic Acid) 1 mg PO DAILY [facility] Last Admin: 10/05/17 09:33 Dose: 1 mg Guaifenesin/Dextromethorphan (Mucinex-Dm 600-30 Mg) 1 tab PO BID [facility] Last Admin: 10/05/17 16:29 Dose: 1 tab Hydromorphone HCl (Dilaudid) 4 mg PO Q4 PRN PRN Reason: Pain, severe (8-10) Last Admin: 10/05/17 21:41 Dose: 4 mg Hydroxyurea (Hydrea) 500 mg PO Q12 [facility] Last Admin: 10/05/17 21:42 Dose: 500 mg Morphine Sulfate (Morphine) 6 mg IVP Q3 PRN PRN Reason: Pain, severe (8-10) Last Admin: 10/05/17 22:58 Dose: 6 mg Promethazine HCl (Phenergan Syrup) 6.25 mg PO Q6 PRN PRN Reason: Cough Last Admin: 10/05/17 09:33 Dose: 6.25 mg Fluticasone/Salmeterol (Advair Diskus 250/50) 1 puff IH Q12 [facility] Last Admin: 10/05/17 21:42 Dose: 1 puff - Labs Labs: 10/05/17 05:25 10/05/17 05:25 - Head Exam Head Exam: ATRAUMATIC - Eye Exam Eye Exam: Normal appearance - ENT Exam ENT Exam: Mucous Membranes Dry - Respiratory Exam Respiratory Exam: NORMAL BREATHING PATTERN - Cardiovascular Exam Cardiovascular Exam: +S1, +S2 - GI/Abdominal Exam GI & Abdominal Exam: Normal Bowel Sounds Assessment and Plan (1) Sickle cell pain crisis Assessment & Plan: IV fluids, pain meds, 02 via NC, folic acid no current transfusion requirements Status: Acute (2) Iron overload due to repeated red blood cell transfusions Assessment & Plan: minimize transfusion support not compliant with outpatient chelation Status: Acute (3) Sickle cell anemia Assessment & Plan: outpatient folic acid and hydrea Status: Acute
[2017-10-06] MEDS: DiphenhydrAMINE 50 mg/ml Inj IVP PRN ×4 (02:04→21:20)
[2017-10-06 07:01] LABS: BASO # 0.1 K/uL (0.0-0.2); BASO % 0.9 % (0.0-2.0); EOS # 1.4 K/uL (0.0-0.7); EOS % 11.7 % (0.0-4.0); HEMOGLOBIN 7.4 g/dL (12.0-16.0); LYMPH # 3.8 K/uL (1.0-4.3); LYMPH % 31.2 % (20.0-40.0); MEAN CELL VOLUME 105.7 fl (81.0-99.0); MEAN CORPUSCULAR HEMOGLOBIN 38.6 pg (27.0-31.0); MEAN CORPUSCULAR HGB CONC 36.5 g/dL (33.0-37.0); MEAN PLATELET VOLUME 8.2 fl (7.2-11.7); MONO # 1.1 K/uL (0.0-0.8); MONO % 8.9 % (0.0-10.0); NEUT # 5.8 K/uL (1.8-7.0); NEUT % 47.3 % (50.0-75.0); NRBC % 0.7 % (0.0-0.0); RBC 1.91 Mil/uL (3.80-5.20); RED CELL DISTRIBUTION WIDTH 18.1 % (11.5-14.5); WHITE BLOOD COUNT 12.2 K/uL (4.8-10.8)
[2017-10-06 07:04] LABS: ALB/GLOB RATIO 1.3 (1.0-2.1); ALBUMIN 3.7 g/dL (3.5-5.0); ALT/SGPT 39 U/L (9-52); AST/SGOT 55 U/L (14-36); BLOOD UREA NITROGEN 6 mg/dl (7-17); CALCIUM 8.8 mg/dL (8.4-10.2); GFR AFRICAN-AMERICAN > 60; GFR NON-AFRICAN AMERICAN > 60
[2017-10-06] MEDS: Albuterol 0.083% Inhal Sol (2.5 mg/3 mL) UD IH PRN ×5 (07:57→23:19)
--- NOTE | 2017-10-06 08:05 | CP.PCM.PN ---
Subjective - Date & Time of Evaluation Date of Evaluation: 10/06/17 Time of Evaluation: 08:04 - Subjective Subjective: pt improved pain. controlled at present w/ meds. no f/c, n/v/d. bw noted. pt still wheezing. Objective - Vital Signs/Intake and Output Vital Signs (last 24 hours): Temp Pulse Resp BP Pulse Ox 98.1 F 81 18 92/50 L 92 L 10/05/17 23:59 10/05/17 23:59 10/05/17 23:59 10/05/17 23:59 10/05/17 23:59 - Medications Medications: Current Medications Albuterol (Ventolin Hfa 90 Mcg/Actuation (8 G)) 2 puff IH Q6 PRN PRN Reason: Shortness of Breath Last Admin: 10/05/17 19:07 Dose: 2 puff Albuterol Sulfate (Albuterol 0.083% Inhal Ethel (2.5 Mg/3 Ml) Ud) 2.5 mg IH Q4 PRN PRN Reason: Shortness of Breath Last Admin: 10/06/17 07:57 Dose: 2.5 mg Diphenhydramine HCl (Benadryl) 50 mg IVP Q6 PRN PRN Reason: Itching / Pruritus Last Admin: 10/06/17 02:04 Dose: 50 mg Docusate Sodium (Colace) [address] [facility] Last Admin: 10/05/17 17:35 Dose: 100 mg Folic Acid (Folic Acid) [address] [facility] Last Admin: 10/05/17 09:33 Dose: 1 mg Guaifenesin/Dextromethorphan (Mucinex-Dm 600-30 Mg) [address] [facility] Last Admin: 10/05/17 16:29 Dose: 1 tab Hydromorphone HCl (Dilaudid) 4 mg PO Q4 PRN PRN Reason: Pain, severe (8-10) Last Admin: 10/06/17 05:31 Dose: 4 mg Hydroxyurea (Hydrea) [address] [facility] Last Admin: 10/05/17 21:42 Dose: 500 mg Morphine Sulfate (Morphine) 6 mg IVP Q3 PRN PRN Reason: Pain, severe (8-10) Last Admin: 10/06/17 05:00 Dose: 6 mg Promethazine HCl (Phenergan Syrup) 6.25 mg PO Q6 PRN PRN Reason: Cough Last Admin: 10/05/17 09:33 Dose: 6.25 mg Fluticasone/Salmeterol (Advair Diskus 250/50) 1 puff IH Q12 [facility] Last Admin: 10/05/17 21:42 Dose: 1 puff - Labs Labs: 10/06/17 05:25 10/06/17 05:25 - Constitutional Appears: Well, Non-toxic, No Acute Distress - Head Exam Head Exam: ATRAUMATIC, NORMAL INSPECTION, NORMOCEPHALIC - Eye Exam Eye Exam: EOMI, Normal appearance, PERRL Pupil Exam: NORMAL ACCOMODATION, PERRL - ENT Exam ENT Exam: Mucous Membranes Moist, Normal Exam - Neck Exam Neck Exam: Full ROM, Normal Inspection. absent: Lymphadenopathy - Respiratory Exam Respiratory Exam: Wheezes, NORMAL BREATHING PATTERN - Cardiovascular Exam Cardiovascular Exam: REGULAR RHYTHM, RRR, +S1, +S2. absent: Murmur - GI/Abdominal Exam GI & Abdominal Exam: Soft, Normal Bowel Sounds. absent: Tenderness - Extremities Exam Extremities Exam: Full ROM, Normal Capillary Refill, Normal Inspection. absent : Joint Swelling, Pedal Edema - Back Exam Back Exam: NORMAL INSPECTION - Neurological Exam Neurological Exam: Alert, Awake, CN II-XII Intact, Normal Gait, Oriented x3 - Psychiatric Exam Psychiatric exam: Normal Affect, Normal Mood - Skin Skin Exam: Dry, Intact, Normal Color, Warm Assessment and Plan (1) Sickle cell pain crisis Status: Acute (2) DVT prophylaxis Status: Acute (3) Asthma, mild intermittent, well-controlled Status: Acute - Assessment and Plan (Free Text) Assessment: (1) Sickle cell pain crisis Assessment & Plan: ms iv and dialudid po ivf monitor bw heme/onc consult benadryl for pruritis pm/r Status: Acute (2) DVT prophylaxis Assessment & Plan: scd and ae hose ambulation Status: Acute (3) Asthma, mild intermittent, well-controlled Assessment & Plan: albuterol prn advair to be added. add phenergen for cough, mucinex for congestion cont meds, no s/s infectiou at this time Status: Acute
[2017-10-06] MEDS: guaiFENesin-DM 600-30 mg ER Tab PO SCH ×2 (08:19→17:33)
[2017-10-06] MEDS: Fluticasone-Salmeterol 250-50mcg Diskus IH SCH ×2 (08:19→21:34)
[2017-10-06] MEDS: Sodium Chloride 0.9% 1,000 ML IV SCH (21:35)
--- NOTE | 2017-10-06 23:10 | CP.PCM.PN ---
Subjective - Date & Time of Evaluation Date of Evaluation: 10/06/17 Time of Evaluation: 18:00 - Subjective Subjective: Pain improved. Objective - Vital Signs/Intake and Output Vital Signs (last 24 hours): Temp Pulse Resp BP Pulse Ox 98.4 F 69 18 93/54 L 96 10/06/17 16:16 10/06/17 16:16 10/06/17 16:16 10/06/17 16:16 10/06/17 16:16 - Medications Medications: Current Medications Albuterol (Ventolin Hfa 90 Mcg/Actuation (8 G)) 2 puff IH Q6 PRN PRN Reason: Shortness of Breath Last Admin: 10/05/17 19:07 Dose: 2 puff Albuterol Sulfate (Albuterol 0.083% Inhal Ethel (2.5 Mg/3 Ml) Ud) 2.5 mg IH Q4 PRN PRN Reason: Shortness of Breath Last Admin: 10/06/17 19:54 Dose: 2.5 mg Diphenhydramine HCl (Benadryl) 50 mg IVP Q6 PRN PRN Reason: Itching / Pruritus Last Admin: 10/06/17 21:20 Dose: 50 mg Docusate Sodium (Colace) 100 mg PO BID [facility] Last Admin: 10/06/17 17:33 Dose: 100 mg Folic Acid (Folic Acid) 1 mg PO DAILY [facility] Last Admin: 10/06/17 08:19 Dose: 1 mg Guaifenesin/Dextromethorphan (Mucinex-Dm 600-30 Mg) 1 tab PO BID [facility] Last Admin: 10/06/17 17:33 Dose: 1 tab Hydromorphone HCl (Dilaudid) 4 mg PO Q4 PRN PRN Reason: Pain, severe (8-10) Last Admin: 10/06/17 18:57 Dose: 4 mg Hydroxyurea (Hydrea) 500 mg PO Q12 [facility] Last Admin: 10/06/17 21:21 Dose: 500 mg Sodium Chloride (Sodium Chloride 0.9%) 1,000 mls @ 150 mls/hr IV .Q6H40M [facility] Stop: 10/07/17 21:06 Last Admin: 10/06/17 21:35 Dose: 150 mls/hr Morphine Sulfate (Morphine) 6 mg IVP Q3 PRN PRN Reason: Pain, severe (8-10) Last Admin: 10/06/17 21:26 Dose: 6 mg Ondansetron HCl (Zofran Odt) 4 mg PO Q8H PRN PRN Reason: Nausea/Vomiting Promethazine HCl (Phenergan Syrup) 6.25 mg PO Q6 PRN PRN Reason: Cough Last Admin: 10/05/17 09:33 Dose: 6.25 mg Fluticasone/Salmeterol (Advair Diskus 250/50) 1 puff IH Q12 [facility] Last Admin: 10/06/17 21:34 Dose: 1 puff - Labs Labs: 10/06/17 05:25 10/06/17 05:25 - Head Exam Head Exam: ATRAUMATIC - Eye Exam Eye Exam: Normal appearance - ENT Exam ENT Exam: Mucous Membranes Dry - Respiratory Exam Respiratory Exam: NORMAL BREATHING PATTERN - Cardiovascular Exam Cardiovascular Exam: +S1, +S2 - GI/Abdominal Exam GI & Abdominal Exam: Normal Bowel Sounds Assessment and Plan (1) Sickle cell pain crisis Assessment & Plan: IV fluids, pain meds, 02 via NC, folic acid no transfusion indication Status: Acute (2) Iron overload due to repeated red blood cell transfusions Assessment & Plan: minimize transfusion support not compliant with outpatient chelation Status: Acute (3) Sickle cell anemia Assessment & Plan: folic acid and hydrea Status: Acute
[2017-10-07] MEDS: Sodium Chloride 0.9% 1,000 ML IV SCH ×2 (03:47→09:42)
[2017-10-07] MEDS: DiphenhydrAMINE 50 mg/ml Inj IVP PRN ×3 (03:52→15:31)
[2017-10-07 06:42] LABS: BASO # 0.1 K/uL (0.0-0.2); BASO % 1.2 % (0.0-2.0); EOS # 0.8 K/uL (0.0-0.7); EOS % 6.8 % (0.0-4.0); HEMOGLOBIN 7.4 g/dL (12.0-16.0); LYMPH # 3.8 K/uL (1.0-4.3); MEAN CELL VOLUME 105.9 fl (81.0-99.0); MEAN CORPUSCULAR HEMOGLOBIN 37.8 pg (27.0-31.0); MEAN CORPUSCULAR HGB CONC 35.7 g/dL (33.0-37.0); MEAN PLATELET VOLUME 7.8 fl (7.2-11.7); MONO # 0.9 K/uL (0.0-0.8); MONO % 7.7 % (0.0-10.0); NEUT % 51.3 % (50.0-75.0); NRBC % 0.5 % (0.0-0.0); RBC 1.95 Mil/uL (3.80-5.20); RED CELL DISTRIBUTION WIDTH 18.5 % (11.5-14.5); WHITE BLOOD COUNT 11.6 K/uL (4.8-10.8)
[2017-10-07 06:57] LABS: ALB/GLOB RATIO 1.3 (1.0-2.1); ALBUMIN 3.7 g/dL (3.5-5.0); ALT/SGPT 39 U/L (9-52); AST/SGOT 43 U/L (14-36); BLOOD UREA NITROGEN 6 mg/dl (7-17); CALCIUM 8.9 mg/dL (8.4-10.2); GFR AFRICAN-AMERICAN > 60; GFR NON-AFRICAN AMERICAN > 60
[2017-10-07] MEDS ORDERED: DiphenhydrAMINE 50 mg/ml Inj IVP STA (07:36)
--- NOTE | 2017-10-07 07:56 | CP.PCM.DIS ---
Provider - Provider Date of Admission: 09/30/17 17:16 Attending physician: Kulwinder Vides MD Time Spent in preparation of Discharge (in minutes): 15 Diagnosis - Discharge Diagnosis (1) Sickle cell pain crisis Status: Acute (2) DVT prophylaxis Status: Acute (3) Asthma, mild intermittent, well-controlled Status: Acute Hospital Course - Lab Results Lab Results: Most Recent Lab Values WBC 11.6 K/uL (4.8-10.8) H 10/07/17 06:32 RBC 1.95 Mil/uL (3.80-5.20) L 10/07/17 06:32 Hgb 7.4 g/dL (12.0-16.0) L 10/07/17 06:32 Hct 20.6 % (34.0-47.0) L 10/07/17 06:32 MCV 105.9 fl (81.0-99.0) H 10/07/17 06:32 MCH 37.8 pg (27.0-31.0) H 10/07/17 06:32 MCHC 35.7 g/dL (33.0-37.0) 10/07/17 06:32 RDW 18.5 % (11.5-14.5) H 10/07/17 06:32 Plt Count 433 K/uL (130-400) H 10/07/17 06:32 MPV 7.8 fl (7.2-11.7) 10/07/17 06:32 Neut % (Auto) 51.3 % (50.0-75.0) 10/07/17 06:32 Lymph % (Auto) 33.0 % (20.0-40.0) 10/07/17 06:32 Linn % (Auto) 7.7 % (0.0-10.0) 10/07/17 06:32 Eos % (Auto) 6.8 % (0.0-4.0) H 10/07/17 06:32 Baso % (Auto) 1.2 % (0.0-2.0) 10/07/17 06:32 Neut # (Auto) 6.0 K/uL (1.8-7.0) 10/07/17 06:32 Lymph # (Auto) 3.8 K/uL (1.0-4.3) 10/07/17 06:32 Linn # (Auto) 0.9 K/uL (0.0-0.8) H 10/07/17 06:32 Eos # (Auto) 0.8 K/uL (0.0-0.7) H 10/07/17 06:32 Baso # (Auto) 0.1 K/uL (0.0-0.2) 10/07/17 06:32 Retic Count 13.2 % (0.5-1.5) H 10/07/17 06:32 Sodium 142 mmol/l (132-148) 10/07/17 06:32 Potassium 3.9 MMOL/L (3.6-5.0) 10/07/17 06:32 Chloride 103 mmol/L (98-107) 10/07/17 06:32 Carbon Dioxide 27 mmol/L (22-30) 10/07/17 06:32 Anion Gap 16 (10-20) 10/07/17 06:32 BUN 6 mg/dl (7-17) L 10/07/17 06:32 Creatinine 0.4 mg/dl (0.7-1.2) L 10/07/17 06:32 Est GFR ( Amer) > 60 05 06:32 Est GFR (Non-Af Amer) > 60 10/07/17 06:32 Random Glucose 89 mg/dL (65-105) 10/07/17 06:32 Calcium 8.9 mg/dL (8.4-10.2) 10/07/17 06:32 Total Bilirubin 1.4 mg/dl (0.2-1.3) H 10/07/17 06:32 AST 43 U/L (14-36) H D 10/07/17 06:32 ALT 39 U/L (9-52) 10/07/17 06:32 Alkaline Phosphatase 42 U/L (38-126) 10/07/17 06:32 Total Protein 6.5 G/DL (6.3-8.2) 10/07/17 06:32 Albumin 3.7 g/dL (3.5-5.0) 10/07/17 06:32 Globulin 2.8 gm/dL (2.2-3.9) 10/07/17 06:32 Albumin/Globulin Ratio 1.3 (1.0-2.1) 10/07/17 06:32 - Hospital Course Hospital Course: pain control pmr consult, heme/onc ivf Discharge Exam - Head Exam Head Exam: ATRAUMATIC, NORMAL INSPECTION, NORMOCEPHALIC - Eye Exam Eye Exam: EOMI, Normal appearance, PERRL Pupil Exam: NORMAL ACCOMODATION, PERRL - Respiratory Exam Respiratory Exam: Clear to PA & Lateral, NORMAL BREATHING PATTERN, UNREMARKABLE - Cardiovascular Exam Cardiovascular Exam: REGULAR RHYTHM, RRR, +S1, +S2 - GI/Abdominal Exam GI & Abdominal Exam: Normal Bowel Sounds, Soft, Unremarkable - Neurological Exam Neurological exam: Alert, CN II-XII Intact, Normal Gait, Oriented x3, Reflexes Normal - Psychiatric Exam Psychiatric exam: Normal Affect, Normal Mood - Skin Skin Exam: Dry, Intact, Normal Color, Warm Discharge Plan - Discharge Medications Prescriptions: HYDROmorphone [Dilaudid 2 mg Tab] 2 mg PO Q4 PRN #10 tab PRN Reason: Pain, Severe (8-10) - Follow Up Plan Condition: FAIR Disposition: HOME/ ROUTINE Instructions: Asthma, Adult (DC), Sickle Cell Disease (DC) Additional Instructions: follow up with primary MD, pain management MD 1 week and heme/onc rted prn, med per med rec required extra dose of benadryl this am. final dx-scc w/ pain Referrals: Sammy Aranda MD [Staff Provider] - Rosa Maria De Santiago MD [Staff Provider] -
[2017-10-07] MEDS: Albuterol 0.083% Inhal Sol (2.5 mg/3 mL) UD IH PRN ×2 (08:22→15:36)
[2017-10-07] MEDS: Fluticasone-Salmeterol 250-50mcg Diskus IH SCH (09:34)
[2017-10-07] MEDS: guaiFENesin-DM 600-30 mg ER Tab PO SCH (09:36)
[2017-10-07 15:38] VITALS: BP 97/60; PULSE 89; TEMP 98.7; O2SAT 95
== END 2017-10-07 17:12 | disposition home or self-care (01) | DRG 395 ==
LOC: H.ER 15:44 → H.ERHOLD 17:16 → H.MEDSURG1 18:20
PROVIDERS: ADMIT Family Medicine; ATTEND Family Medicine
DX: D57.00 Hb-SS disease with crisis, unspecified (principal); E83.111 Hemochromatosis due to repeated red blood cell transfusions; G89.29 Other chronic pain; J45.20 Mild intermittent asthma, uncomplicated; Z90.49 Acquired absence of other specified parts of digestive tract; Z90.81 Acquired absence of spleen; M25.511 Pain in right shoulder; M79.603 Pain in arm, unspecified; M79.89 Other specified soft tissue disorders

== ENCOUNTER 2018-03-14 20:56 | Inpatient (IN) | payer MEDICAID ==
[2018-03-15] MEDS ORDERED: DiphenhydrAMINE 50 mg/ml Inj IVP STA ×2 (01:32→04:31)
[2018-03-15] MEDS ORDERED: Sodium Chloride 0.9% 1,000 ML IV STA ×2 (01:33→04:13)
[2018-03-15] MEDS ORDERED: Albuterol-Ipratrop 3 mg / 0.5 (3 ml) UD ONE (02:05)
[2018-03-15] MEDS ORDERED: Albuterol 0.083% Inhal Sol (2.5 mg/3 mL) UD INH ONE (02:08)
[2018-03-15 02:19] LABS: BASO # 0.1 K/uL (0.0-0.2); BASO % 0.9 % (0.0-2.0); EOS # 0.6 K/uL (0.0-0.7); EOS % 3.9 % (0.0-4.0); HEMOGLOBIN 8.1 g/dL (12.0-16.0); LYMPH # 4.4 K/uL (1.0-4.3); LYMPH % 31.6 % (20.0-40.0); MEAN CELL VOLUME 106.4 fl (81.0-99.0); MEAN CORPUSCULAR HEMOGLOBIN 36.6 pg (27.0-31.0); MEAN CORPUSCULAR HGB CONC 34.4 g/dL (33.0-37.0); MONO # 1.3 K/uL (0.0-0.8); MONO % 9.4 % (0.0-10.0); NEUT # 7.6 K/uL (1.8-7.0); NEUT % 54.2 % (50.0-75.0); NRBC % 3.6 % (0.0-0.0); RBC 2.22 Mil/uL (3.80-5.20); RED CELL DISTRIBUTION WIDTH 16.4 % (11.5-14.5)
--- NOTE | 2018-03-15 02:20 | ED PDOC ---
Arrival/HPI - General Chief Complaint: Pain, Chronic Past Medical History - Infectious Disease Hx of Infectious Diseases: None - Cardiac Hx Cardiac Disorders: No - Pulmonary Hx Respiratory Disorders: Yes Hx Asthma: Yes - Neurological Hx Neurological Disorder: No Hx Alzheimer's Disease: No Hx Dementia: No Hx Migraine: No Hx Multiple Sclerosis: No Hx Parkinson's Disease: No Hx Seizures: No Hx Transient Ischemic Attacks (TIA): No - HEENT Hx HEENT Disorder: Yes - Renal Hx Renal Disorder: No - Endocrine/Metabolic Hx Endocrine Disorders: No Hx Hyperthyroidism: No Hx Hypothyroidism: No - Hematological/Oncological Hx Blood Disorders: Yes Hx Sickle Cell Disease: Yes - Integumentary Hx Dermatological Disorder: No - Musculoskeletal/Rheumatological Hx Musculoskeletal Disorders: No Hx Falls: No - Gastrointestinal Hx Gastrointestinal Disorders: No Hx Crohn's Disease: No Hx Diverticulitis: No Hx Gall Bladder Disease: No Hx Gastritis: No Hx Pancreatitis: No - Genitourinary/Gynecological Hx Genitourinary Disorders: No Hx Sexually Transmitted Diseases: No - Psychiatric Hx Psychophysiologic Disorder: No Hx Substance Use: No - Surgical History Hx Appendectomy: No Hx Carotid Endarterectomy: No Hx Cholecystectomy: Yes Hx Coronary Artery Bypass Graft: No Hx Coronary Stent: No Hx Splenectomy: Yes Hx Tonsillectomy: No - Anesthesia Hx Anesthesia: Yes Hx Anesthesia Reactions: No Hx Malignant Hyperthermia: No - Suicidal Assessment Feels Threatened In Home Enviroment: No Family/Social History Smoking Status: Never Smoked Hx Alcohol Use: No Hx Substance Use: No Substance used: nelly Allergies/Home Meds Allergies/Adverse Reactions: Allergies latex Allergy (Verified 03/14/18 23:38) RASH meperidine HCl [From Demerol] Allergy (Verified 03/14/18 23:38) RASH Home Medications: Home Meds Medication Instructions Recorded Confirmed Albuterol 0.083% [Albuterol 0.083% 3 ml IH Q4 PRN 09/30/17 09/30/17 Inhal Ethel (2.5 mg/3 ml) UD] Albuterol Sulfate [Ventolin Hfa] 2 puff IH Q6 PRN 09/30/17 09/30/17 Folic Acid 1 mg PO DAILY 09/30/17 09/30/17 Hydroxyurea [Hydrea] 500 mg PO Q12 09/30/17 09/30/17 Physical Exam Vital Signs Temp Pulse Resp BP Pulse Ox 03/14/18 23:38 98.5 F 93 H 16 97/60 L 100 Medical Decision Making - Medication Orders Current Medication Orders: Diphenhydramine HCl (Benadryl) 25 mg IVP STAT STA Stop: 03/15/18 01:33 Hydromorphone HCl (Dilaudid) 1 mg IVP STAT STA Stop: 03/15/18 01:34 Sodium Chloride (Sodium Chloride 0.9%) 1,000 mls @ 999 mls/hr IV .Q1H1M [facility] Stop: 03/15/18 02:33 Last Admin: 03/15/18 02:00 Dose: 999 mls/hr eMAR Start Stop Document 03/15/18 02:00 EBD (Rec: 03/15/18 02:00 EBD [id number]) Intravenous Solution Start Date 03/15/18 Start Time 02:00 End Date 03/15/18 End time 03:00 Total Infusion Time 60 Disposition/Present on Arrival - Present on Arrival History of DVT/PE: No History of Uncontrolled Diabetes: No Urinary Catheter: No History Surgical Site Infection Following: None - Disposition
[2018-03-15] MEDS ORDERED: Albuterol 0.083% Inhal Sol (2.5 mg/3 mL) UD ONE (02:23)
--- NOTE | 2018-03-15 02:24 | ED PDOC ---
Upper Extremity Pain/Injury Time Seen by Provider: 03/14/18 21:00 Chief Complaint (Nursing): Pain, Chronic Chief Complaint (Provider): Left Hand Pain History Per: Patient History/Exam Limitations: no limitations Onset/Duration Of Symptoms: Days Current Symptoms Are (Timing): Still Present Quality: "Pain" Additional Complaint(s): 27 year old female with PMHx of asthma and sickle cell presents to the ER for an evaluation of left hand pain onset yesterday. Patient reports it feels like sickle cell pain. Denies fever,sob chest pain, vomiting, nausea or diarrhea. PMD: Rashaad Rojas Past Medical History Reviewed: Historical Data, Nursing Documentation, Vital Signs Vital Signs: Last Vital Signs Temp 98.5 F 03/14/18 23:38 Pulse 93 H 03/14/18 23:38 Resp 16 03/14/18 23:38 BP 97/60 L 03/14/18 23:38 Pulse Ox 100 03/14/18 23:38 - Medical History PMH: Asthma, Sickle Cell Disease Denies: Alzheimer's Disease, Anemia, Anxiety, Arthritis, Atrial Fibrillation, Bipolar Disorder, Bronchitis, CAD, Cardia Arrhythmia, CHF, COPD, Crohn's Disease, Dementia, Depression, Diabetes, Diverticulitis, Emphysema, Fractures, Gastritis, Gall Bladder Disease, Hepatitis, HIV, HTN, Hypercholesterolemia, Hyperthyroidism, Hypothyroidism, Kidney Stones, Migraine, Mitral Valve Prolapse, Multiple Sclerosis, Osteoporosis, Pancreatitis, Paranoia, Parkinson's Disease, Peripheral Edema, Pneumonia, Post Traumatic Stress Disorder, Pulmonary Embolism, Chronic Kidney Disease, Rheumatoid Arthritis, Schizophrenia, Seizures, Sexually Transmitted Disease, Sleep Apnea, TIA - Surgical History Surgical History: Cholecystectomy Denies: Appendectomy, CABG, Carotid Endarterectomy, Coronary Stent, P acemaker, Tonsillectomy - Family History Family History: States: Unknown Family Hx - Social History Current smoker - smoking cessation education provided: No Alcohol: None Drugs: Cannabis - Immunization History Hx Tetanus Toxoid Vaccination: No Hx Influenza Vaccination: No Hx Pneumococcal Vaccination: No - Home Medications Home Medications: Ambulatory Orders Medication Instructions Recorded RX: Albuterol 0.083% [Albuterol 3 ml IH Q4 PRN 09/30/17 0.083% Inhal Ethel (2.5 mg/3 ml) UD] RX: Albuterol Sulfate [Ventolin 2 puff IH Q6 PRN 09/30/17 Hfa] RX: Folic Acid 1 mg PO DAILY 09/30/17 RX: Hydroxyurea [Hydrea] 500 mg PO Q12 09/30/17 HYDROmorphone [Dilaudid 2 mg Tab] 2 mg PO Q4 PRN #10 tab 10/06/17 - Allergies Allergies/Adverse Reactions: Allergies Allergy/AdvReac Type Severity Reaction Status Date / Time latex Allergy RASH Verified 03/14/18 23:38 meperidine HCl [From Demerol] Allergy RASH Verified 03/14/18 23:38 Review of Systems ROS Statement: Except As Marked, All Systems Reviewed And Found Negative Constitutional: Negative for: Fever Cardiovascular: Negative for: Chest Pain Gastrointestinal: Negative for: Nausea, Vomiting, Abdominal Pain, Diarrhea Musculoskeletal: Positive for: Hand Pain (left) Physical Exam - Reviewed Nursing Documentation Reviewed: Yes Vital Signs Reviewed: Yes - Physical Exam Appears: Positive for: Well, Non-toxic, No Acute Distress Head Exam: Positive for: ATRAUMATIC, NORMAL INSPECTION, NORMOCEPHALIC Skin: Positive for: Normal Color, Warm, Dry. Negative for: Rash Eye Exam: Positive for: EOMI, Normal appearance, PERRL ENT: Positive for: Normal ENT Inspection Neck: Positive for: Normal, Painless ROM, Supple. Negative for: Decreased ROM Cardiovascular/Chest: Positive for: Regular Rate, Rhythm. Negative for: Murmur Respiratory: Positive for: Normal Breath Sounds. Negative for: Decreased Breath Sounds, Wheezing, Respiratory Distress Gastrointestinal/Abdominal: Positive for: Normal Exam, Soft. Negative for: Tenderness, Guarding, Rebound Back: Positive for: Normal Inspection. Negative for: L CVA Tenderness, R CVA Tenderness Extremity: Positive for: Normal ROM. Negative for: Tenderness, Pedal Edema, Deformity, Swelling Neurologic/Psych: Positive for: Alert, Oriented (x3). Negative for: Motor/Sensory Deficits - Laboratory Results Result Diagrams: 03/16/18 05:18 03/16/18 05:18 - ECG O2 Sat by Pulse Oximetry: 100 (RA) Pulse Ox Interpretation: Normal Medical Decision Making Medical Decision Making: Time: 013 Initial Impression: left hand pain (atrumatic), rule out sickle cell crisis Initial Plan: CMP CBC w/ Differential Reticulocyte Count Albuterol 2.5mg/3ml Benadryl 25mg Dilaudid 1mg Normal Saline 999mls/hr Nebulizer Treatment Peak Flow Pre/Post TX Reevaluation Patient still has pain -so more pain medications ordered - pt requesting benadryl with the dilaudid Time: 430 Benadryl 25mg Dilaudid 1mg Time: 624 Patient's primary care, Dr. Rojas notified of patient's condition and need for admission for further pain management pt agreeable to plan Scribe Attestation: Documented by Esme Hays, acting as a scribe for Joey Maddox MD. Provider Scribe Attestation: All medical record entries made by the Scribe were at my direction and personally dictated by me. I have reviewed the chart and agree that the record accurately reflects my personal performance of the history, physical exam, medical decision making, and the department course for this patient. I have also personally directed, reviewed, and agree with the discharge instructions and disposition. Disposition - Clinical Impression Clinical Impression: Sickle cell crisis - Patient ED Disposition Is Patient to be Admitted: Yes Counseled Patient/Family Regarding: Studies Performed, Diagnosis - Disposition Disposition Time: 05:00 Condition: STABLE
[2018-03-15 02:26] LABS: ALB/GLOB RATIO 1.4 (1.0-2.1); ALBUMIN 4.2 g/dL (3.5-5.0); ALT/SGPT 27 U/L (9-52); AST/SGOT 40 U/L (14-36); BLOOD UREA NITROGEN 8 mg/dl (7-17); CALCIUM 9.1 mg/dL (8.4-10.2); GFR NON-AFRICAN AMERICAN > 60
[2018-03-15] MEDS ORDERED: DiphenhydrAMINE 50 mg/ml Inj ONE (04:34)
--- NOTE | 2018-03-15 09:51 | CP.PCM.HP ---
History of Present Illness - History of Present Illness History of Present Illness: pt admitted for pain, anemia, elev retic count. has h/o sca and appares to be in crisis. well known to this provider for same. 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 no cough/congestion but states was wheezing. Present on Admission - Present on Admission Any Indicators Present on Admission: No Review of Systems - Musculoskeletal Musculoskeletal: As Per HPI, Arthralgias, Myalgias Past Patient History - Infectious Disease Hx of Infectious Diseases: None - Past Medical History & Family History Past Medical History?: Yes - Past Social History Alcohol: None Drugs: Cannabis - CARDIAC Hx Atrial Fibrillation: No Hx Cardia Arrhythmia: No Hx Congestive Heart Failure: No Hx Hypercholesterolemia: No Hx Hypertension: No Hx Mitral Valve Prolapse: No Hx Pacemaker: No Hx Peripheral Edema: No - PULMONARY Hx Respiratory Disorders: Yes - NEUROLOGICAL Hx Alzheimer's Disease: No Hx Dementia: No Hx Migraine: No Hx Multiple Sclerosis: No Hx Parkinson's Disease: No Hx Seizures: No Hx Transient Ischemic Attacks (TIA): No - HEENT Hx HEENT Problems: Yes - RENAL Hx Chronic Kidney Disease: No - ENDOCRINE/METABOLIC Hx Hyperthyroidism: No Hx Hypothyroidism: No - HEMATOLOGICAL/ONCOLOGICAL Hx Blood Disorders: Yes - INTEGUMENTARY Hx Dermatological Problems: No - MUSCULOSKELETAL/RHEUMATOLOGICAL Hx Arthritis: No Hx Fractures: No Hx Osteoporosis: No Hx Rheumatoid Arthritis: No - GASTROINTESTINAL Hx Crohn's Disease: No Hx Diverticulitis: No Hx Gall Bladder Disease: No Hx Gastritis: No Hx Pancreatitis: No - GENITOURINARY/GYNECOLOGICAL Hx Sexually Transmitted Disorders: No - PSYCHIATRIC Hx Anxiety: No Hx Bipolar Disorder: No Hx Depression: No Hx Paranoia: No Hx Post Traumatic Stress Disorder: No Hx Schizophrenia: No - SURGICAL HISTORY Hx Appendectomy: No Hx Carotid Endarterectomy: No Hx Cholecystectomy: Yes Hx Coronary Artery Bypass Graft: No Hx Coronary Stent: No Hx Tonsillectomy: No - ANESTHESIA Hx Anesthesia: Yes Hx Anesthesia Reactions: No Hx Malignant Hyperthermia: No Meds Allergies/Adverse Reactions: Allergies Allergy/AdvReac Type Severity Reaction Status Date / Time latex Allergy RASH Verified 03/14/18 23:38 meperidine HCl [From Demerol] Allergy RASH Verified 03/14/18 23:38 Physical Exam - Constitutional Appears: Well, Non-toxic, No Acute Distress - Head Exam Head Exam: ATRAUMATIC, NORMAL INSPECTION, NORMOCEPHALIC - Eye Exam Eye Exam: EOMI, Normal appearance, PERRL Pupil Exam: NORMAL ACCOMODATION, PERRL - ENT Exam ENT Exam: Mucous Membranes Moist, Normal Exam - Neck Exam Neck exam: Positive for: Normal Inspection - Respiratory Exam Respiratory Exam: Clear to Auscultation Bilateral, NORMAL BREATHING PATTERN - Cardiovascular Exam Cardiovascular Exam: REGULAR RHYTHM, RRR, +S1, +S2 - GI/Abdominal Exam GI & Abdominal Exam: Normal Bowel Sounds, Soft. absent: Tenderness - Extremities Exam Extremities exam: Positive for: full ROM, normal capillary refill, normal inspection, tenderness, pedal pulses present - Back Exam Back exam: FULL ROM, NORMAL INSPECTION - Neurological Exam Neurological exam: Alert, CN II-XII Intact, Normal Gait, Oriented x3, Reflexes Normal - Psychiatric Exam Psychiatric exam: Normal Affect, Normal Mood - Skin Skin Exam: Dry, Intact, Normal Color, Warm Results - Vital Signs Recent Vital Signs: Last Vital Signs Temp 97.8 F 03/15/18 08:05 Pulse 70 03/15/18 08:05 Resp 17 03/15/18 08:05 BP 105/63 03/15/18 08:05 Pulse Ox 98 03/15/18 07:30 - Labs Result Diagrams: 03/15/18 02:00 03/15/18 02:00 Labs: Laboratory Results - last 24 hr 03/15/18 03/15/18 02:00 02:00 WBC 14.0 H RBC 2.22 L Hgb 8.1 L Hct 23.6 L MCV 106.4 H MCH 36.6 H MCHC 34.4 RDW 16.4 H Plt Count 493 H MPV 8.0 Neut % (Auto) 54.2 Lymph % (Auto) 31.6 [place] % (Auto) 9.4 Eos % (Auto) 3.9 Baso % (Auto) 0.9 Neut # (Auto) 7.6 H Lymph # (Auto) 4.4 H [place] # (Auto) 1.3 H Eos # (Auto) 0.6 Baso # (Auto) 0.1 Retic Count 15.0 H Sodium 142 Potassium 3.6 Chloride 107 Carbon Dioxide 29 Anion Gap 10 BUN 8 Creatinine 0.5 L Est GFR ( Amer) > 60 Est GFR (Non-Af Amer) > 60 Random Glucose 96 Calcium 9.1 Total Bilirubin 2.2 H AST 40 H ALT 27 Alkaline Phosphatase 47 Total Protein 7.3 Albumin 4.2 Globulin 3.1 Albumin/Globulin Ratio 1.4 Assessment & Plan (1) Asthma, mild intermittent, well-controlled Assessment and Plan: albuterol prn Status: Acute (2) Sickle cell pain crisis Assessment and Plan: dilaudid, toradol heme/onc benadryl prn, ivf monitor bw Status: Acute (3) DVT prophylaxis Assessment and Plan: scd nad ae hose ambulation Status: Acute Decision To Admit - Pt Status Changed To: Hospital Disposition Of: Observation - . Bed Request Type: Med/Surg Admitting Physician: Kulwinder Vides
[2018-03-15] MEDS: Sodium Chloride 0.9% 1,000 ML IV SCH ×3 (09:56→23:58)
[2018-03-15] MEDS: DiphenhydrAMINE 50 mg/ml Inj IVP PRN ×3 (10:16→22:49)
[2018-03-15] MEDS: Vitamin A/D oint 60G TP SCH ×2 (11:20→18:22)
[2018-03-15] MEDS ORDERED: Albuterol 0.083% Inhal Sol (2.5 mg/3 mL) UD IH PRN (11:24)
--- NOTE | 2018-03-15 11:26 | CP.PCM.CON ---
History of Present Illness - History of Present Illness History of Present Illness: 27 year old female with a history of sickle cell anemia admitted with sickle pain crisis. The patient reports to increasing pain involving her left hand and radiating up her arm. This pain was not improved with her home medi cation and came to the ER. She also feels her pain was exacerbated by changes in the weather. She denies shortness of breath and chest pain. She has no fevers or chills. Past medical history: sickle cell anemia Past surgical history: portacath placement. Family history: Parents have sickle trait. Social history: Denies tobacco, alcohol, and illicit drug use. Allergies: meperidine. Review of systems: All remaining ROS including HEENT, cardiovascular, respiratory, gastrointestinal, genitourinary, musculoskeletal, dermatologic, neurologic, are psychiatric are negative unless mentioned in the HPI. Past Patient History - Infectious Disease Hx of Infectious Diseases: None - Past Medical History & Family History Past Medical History?: Yes - Past Social History Alcohol: None Drugs: Cannabis - CARDIAC Hx Atrial Fibrillation: No Hx Cardia Arrhythmia: No Hx Congestive Heart Failure: No Hx Hypercholesterolemia: No Hx Hypertension: No Hx Mitral Valve Prolapse: No Hx Pacemaker: No Hx Peripheral Edema: No - PULMONARY Hx Respiratory Disorders: Yes - NEUROLOGICAL Hx Alzheimer's Disease: No Hx Dementia: No Hx Migraine: No Hx Multiple Sclerosis: No Hx Parkinson's Disease: No Hx Seizures: No Hx Transient Ischemic Attacks (TIA): No - HEENT Hx HEENT Problems: Yes - RENAL Hx Chronic Kidney Disease: No - ENDOCRINE/METABOLIC Hx Hyperthyroidism: No Hx Hypothyroidism: No - HEMATOLOGICAL/ONCOLOGICAL Hx Blood Disorders: Yes - INTEGUMENTARY Hx Dermatological Problems: No - MUSCULOSKELETAL/RHEUMATOLOGICAL Hx Arthritis: No Hx Fractures: No Hx Osteoporosis: No Hx Rheumatoid Arthritis: No - GASTROINTESTINAL Hx Crohn's Disease: No Hx Diverticulitis: No Hx Gall Bladder Disease: No Hx Gastritis: No Hx Pancreatitis: No - GENITOURINARY/GYNECOLOGICAL Hx Sexually Transmitted Disorders: No - PSYCHIATRIC Hx Anxiety: No Hx Bipolar Disorder: No Hx Depression: No Hx Paranoia: No Hx Post Traumatic Stress Disorder: No Hx Schizophrenia: No - SURGICAL HISTORY Hx Appendectomy: No Hx Carotid Endarterectomy: No Hx Cholecystectomy: Yes Hx Coronary Artery Bypass Graft: No Hx Coronary Stent: No Hx Tonsillectomy: No - ANESTHESIA Hx Anesthesia: Yes Hx Anesthesia Reactions: No Hx Malignant Hyperthermia: No Meds Allergies/Adverse Reactions: Allergies Allergy/AdvReac Type Severity Reaction Status Date / Time latex Allergy RASH Verified 03/14/18 23:38 meperidine HCl [From Demerol] Allergy RASH Verified 03/14/18 23:38 - Medications Medications: Current Medications Acetaminophen (Tylenol 325mg Tab) 650 mg PO Q4 PRN PRN Reason: Fever >100.4 F Diphenhydramine HCl (Benadryl) 50 mg IVP Q6 PRN PRN Reason: Itching / Pruritus Last Admin: 03/15/18 10:16 Dose: 50 mg Hydromorphone HCl (Dilaudid) 2 mg IVP Q4 PRN PRN Reason: Pain, severe (8-10) Last Admin: 03/15/18 10:12 Dose: 2 mg Sodium Chloride (Sodium Chloride 0.9%) 1,000 mls @ 125 mls/hr IV .Q8H [facility] Stop: 03/16/18 09:09 Last Admin: 03/15/18 09:56 Dose: 125 mls/hr Ketorolac Tromethamine (Toradol) 30 mg IVP Q6 PRN PRN Reason: Pain, moderate (4-7) Ondansetron HCl (Zofran Inj) 4 mg IVP Q6 PRN PRN Reason: Nausea/Vomiting Last Admin: 03/15/18 11:20 Dose: 4 mg Vitamin A (Vitamin A&D) 1 applic TP BID [facility] Last Admin: 03/15/18 11:20 Dose: 1 applic Physical Exam - Head Exam Head Exam: ATRAUMATIC - Eye Exam Eye Exam: Normal appearance - ENT Exam ENT Exam: Mucous Membranes Dry - Respiratory Exam Respiratory Exam: NORMAL BREATHING PATTERN - Cardiovascular Exam Cardiovascular Exam: +S1, +S2 - GI/Abdominal Exam GI & Abdominal Exam: Normal Bowel Sounds - Extremities Exam Extremities exam: Positive for: normal inspection - Neurological Exam Neurological exam: Oriented x3 - Psychiatric Exam Psychiatric exam: Normal Affect, Normal Mood - Skin Skin Exam: Warm Results - Vital Signs Recent Vital Signs: Last Vital Signs Temp 97.6 F 03/15/18 10:14 Pulse 81 03/15/18 10:14 Resp 19 03/15/18 10:14 BP 102/70 03/15/18 10:14 Pulse Ox 97 03/15/18 10:14 - Labs Result Diagrams: 03/15/18 02:00 03/15/18 02:00 Labs: Laboratory Results - last 24 hr 03/15/18 03/15/18 02:00 02:00 WBC 14.0 H RBC 2.22 L Hgb 8.1 L Hct 23.6 L MCV 106.4 H MCH 36.6 H MCHC 34.4 RDW 16.4 H Plt Count 493 H MPV 8.0 Neut % (Auto) 54.2 Lymph % (Auto) 31.6 [place] % (Auto) 9.4 Eos % (Auto) 3.9 Baso % (Auto) 0.9 Neut # (Auto) 7.6 H Lymph # (Auto) 4.4 H [place] # (Auto) 1.3 H Eos # (Auto) 0.6 Baso # (Auto) 0.1 Retic Count 15.0 H Sodium 142 Potassium 3.6 Chloride 107 Carbon Dioxide 29 Anion Gap 10 BUN 8 Creatinine 0.5 L Est GFR ( Amer) > 60 Est GFR (Non-Af Amer) > 60 Random Glucose 96 Calcium 9.1 Total Bilirubin 2.2 H AST 40 H ALT 27 Alkaline Phosphatase 47 Total Protein 7.3 Albumin 4.2 Globulin 3.1 Albumin/Globulin Ratio 1.4 Assessment & Plan (1) Sickle cell pain crisis Assessment and Plan: IV fluids, pain meds, folic acid, 02 via NC no current transfusion indication Status: Acute (2) Leukocytosis Assessment and Plan: likely reactive to sickle cell Status: Chronic (3) Iron overload due to repeated red blood cell transfusions Assessment and Plan: minimize transfusion support outpatient chelation (pt non compliant and does not follow with me in the office) Status: Acute (4) Sickle cell anemia Assessment and Plan: folic acid and hydrea Thank you for this interesting consult. Status: Acute
[2018-03-16] MEDS: Sodium Chloride 0.9% 1,000 ML IV SCH ×4 (01:25→17:52)
[2018-03-16 05:39] LABS: BASO # 0.1 K/uL (0.0-0.2); BASO % 0.6 % (0.0-2.0); EOS # 0.6 K/uL (0.0-0.7); EOS % 4.2 % (0.0-4.0); LYMPH # 4.8 K/uL (1.0-4.3); LYMPH % 33.5 % (20.0-40.0); MEAN CELL VOLUME 103.3 fl (81.0-99.0); MEAN CORPUSCULAR HGB CONC 35.8 g/dL (33.0-37.0); MEAN PLATELET VOLUME 7.9 fl (7.2-11.7); MONO # 1.4 K/uL (0.0-0.8); MONO % 9.5 % (0.0-10.0); NEUT # 7.4 K/uL (1.8-7.0); NEUT % 52.2 % (50.0-75.0); NRBC % 0.2 % (0.0-0.0); RBC 1.89 Mil/uL (3.80-5.20); RED CELL DISTRIBUTION WIDTH 16.5 % (11.5-14.5); WHITE BLOOD COUNT 14.2 K/uL (4.8-10.8)
[2018-03-16 06:24] LABS: ALB/GLOB RATIO 1.3 (1.0-2.1); ALBUMIN 3.8 g/dL (3.5-5.0); ALT/SGPT 30 U/L (9-52); AST/SGOT 67 U/L (14-36); BLOOD UREA NITROGEN 5 mg/dl (7-17); CALCIUM 8.5 mg/dL (8.4-10.2); GFR NON-AFRICAN AMERICAN > 60
[2018-03-16] MEDS: DiphenhydrAMINE 50 mg/ml Inj IVP PRN ×3 (06:26→21:38)
--- NOTE | 2018-03-16 09:11 | CP.PCM.PN ---
Subjective - Date & Time of Evaluation Date of Evaluation: 03/16/18 Time of Evaluation: 09:11 - Subjective Subjective: pt cont to c/o pain. no f/c, n/v/d. no sob/wheezing. pain focused left hand. consult note appriciated. Objective - Vital Signs/Intake and Output Vital Signs (last 24 hours): Temp Pulse Resp BP Pulse Ox 98.5 F 86 19 105/69 95 03/16/18 00:17 03/16/18 00:17 03/16/18 00:17 03/16/18 00:17 03/16/18 00:17 - Medications Medications: Current Medications Acetaminophen (Tylenol 325mg Tab) 650 mg PO Q4 PRN PRN Reason: Fever >100.4 F Albuterol Sulfate (Albuterol 0.083% Inhal Ethel (2.5 Mg/3 Ml) Ud) 2.5 mg IH RQ4 PRN PRN Reason: Shortness of Breath Diphenhydramine HCl (Benadryl) 50 mg IVP Q6 PRN PRN Reason: Itching / Pruritus Last Admin: 03/16/18 06:26 Dose: 50 mg Folic Acid (Folic Acid) 1 mg PO DAILY [facility] Last Admin: 03/16/18 08:58 Dose: 1 mg Hydromorphone HCl (Dilaudid) 2 mg IVP Q4 PRN PRN Reason: Pain, severe (8-10) Last Admin: 03/16/18 06:27 Dose: 2 mg Hydroxyurea (Hydrea) 500 mg PO Q12 [facility] Last Admin: 03/16/18 08:58 Dose: 500 mg Ketorolac Tromethamine (Toradol) 30 mg IVP Q6 PRN PRN Reason: Pain, moderate (4-7) Ondansetron HCl (Zofran Inj) 4 mg IVP Q6 PRN PRN Reason: Nausea/Vomiting Last Admin: 03/16/18 08:47 Dose: 4 mg Vitamin A (Vitamin A&D) 1 applic TP BID [facility] Last Admin: 03/15/18 18:22 Dose: 1 applic - Labs Labs: 03/16/18 05:18 03/16/18 05:18 - Constitutional Appears: Well, Non-toxic, No Acute Distress - Head Exam Head Exam: ATRAUMATIC, NORMAL INSPECTION, NORMOCEPHALIC - Eye Exam Eye Exam: EOMI, Normal appearance, PERRL Pupil Exam: NORMAL ACCOMODATION, PERRL - ENT Exam ENT Exam: Mucous Membranes Moist, Normal Exam - Neck Exam Neck Exam: Full ROM, Normal Inspection. absent: Lymphadenopathy - Respiratory Exam Respiratory Exam: Clear to Ausculation Bilateral, NORMAL BREATHING PATTERN - Cardiovascular Exam Cardiovascular Exam: REGULAR RHYTHM, RRR, +S1, +S2. absent: Murmur - GI/Abdominal Exam GI & Abdominal Exam: Soft, Normal Bowel Sounds. absent: Tenderness - Extremities Exam Extremities Exam: Full ROM, Normal Capillary Refill, Normal Inspection. absent: Joint Swelling, Pedal Edema - Back Exam Back Exam: NORMAL INSPECTION - Neurological Exam Neurological Exam: Alert, Awake, CN II-XII Intact, Normal Gait, Oriented x3 - Psychiatric Exam Psychiatric exam: Normal Affect, Normal Mood - Skin Skin Exam: Dry, Intact, Normal Color, Warm Assessment and Plan (1) Asthma, mild intermittent, well-controlled Status: Acute (2) Sickle cell pain crisis Status: Acute (3) DVT prophylaxis Status: Acute - Assessment and Plan (Free Text) Assessment: (1) Asthma, mild intermittent, well-controlled Assessment and Plan: albuterol prn Status: Acute (2) Sickle cell pain crisis Assessment and Plan: dilaudid, toradol heme/onc benadryl prn, ivf monitor bw Status: Acute (3) DVT prophylaxis Assessment and Plan: scd nad ae hose ambulation Status: Acute
[2018-03-16] MEDS: Vitamin A/D oint 60G TP SCH ×2 (14:09→17:56)
--- NOTE | 2018-03-16 21:08 | CP.PCM.PN ---
Subjective - Date & Time of Evaluation Date of Evaluation: 03/16/18 Time of Evaluation: 15:00 - Subjective Subjective: Has pain in left hand Objective - Vital Signs/Intake and Output Vital Signs (last 24 hours): Temp Pulse Resp BP Pulse Ox 98.4 F 95 H 18 95/61 L 90 L 03/16/18 16:31 03/16/18 16:31 03/16/18 16:31 03/16/18 16:31 03/16/18 16:31 - Medications Medications: Current Medications Acetaminophen (Tylenol 325mg Tab) 650 mg PO Q4 PRN PRN Reason: Fever >100.4 F Albuterol Sulfate (Albuterol 0.083% Inhal Ethel (2.5 Mg/3 Ml) Ud) 2.5 mg IH RQ4 PRN PRN Reason: Shortness of Breath Diphenhydramine HCl (Benadryl) 50 mg IVP Q6 PRN PRN Reason: Itching / Pruritus Last Admin: 03/16/18 14:05 Dose: 50 mg Folic Acid (Folic Acid) 1 mg PO DAILY [facility] Last Admin: 03/16/18 08:58 Dose: 1 mg Hydromorphone HCl (Dilaudid) 2 mg IVP Q4 PRN PRN Reason: Pain, severe (8-10) Last Admin: 03/16/18 18:50 Dose: 2 mg Hydroxyurea (Hydrea) 500 mg PO Q12 [facility] Last Admin: 03/16/18 20:50 Dose: 500 mg Sodium Chloride (Sodium Chloride 0.9%) 1,000 mls @ 125 mls/hr IV .Q8H [facility] Stop: 03/17/18 09:52 Last Admin: 03/16/18 17:52 Dose: 125 mls/hr Ketorolac Tromethamine (Toradol) 30 mg IVP Q6 PRN PRN Reason: Pain, moderate (4-7) Ondansetron HCl (Zofran Inj) 4 mg IVP Q6 PRN PRN Reason: Nausea/Vomiting Last Admin: 03/16/18 08:47 Dose: 4 mg Vitamin A (Vitamin A&D) 1 applic TP BID [facility] Last Admin: 03/16/18 17:56 Dose: 1 applic - Labs Labs: 03/16/18 05:18 03/16/18 05:18 - Head Exam Head Exam: ATRAUMATIC - Eye Exam Eye Exam: Normal appearance - ENT Exam ENT Exam: Mucous Membranes Dry - Respiratory Exam Respiratory Exam: NORMAL BREATHING PATTERN - Cardiovascular Exam Cardiovascular Exam: +S1, +S2 - GI/Abdominal Exam GI & Abdominal Exam: Normal Bowel Sounds Assessment and Plan (1) Sickle cell pain crisis Assessment & Plan: IV fluids, pain meds, folic acid, 02 via NC no current transfusion indication Status: Acute (2) Leukocytosis Assessment & Plan: likely reactive to sickle cell Status: Chronic (3) Iron overload due to repeated red blood cell transfusions Assessment & Plan: minimize transfusion support outpatient chelation (pt non compliant and does not follow with me in the office) Status: Acute (4) Sickle cell anemia Assessment & Plan: folic acid and hydrea Status: Acute
[2018-03-17] MEDS: Sodium Chloride 0.9% 1,000 ML IV SCH (02:00)
[2018-03-17] MEDS: DiphenhydrAMINE 50 mg/ml Inj IVP PRN ×4 (03:30→21:32)
[2018-03-17 06:33] LABS: BASO # 0.1 K/uL (0.0-0.2); BASO % 0.8 % (0.0-2.0); EOS # 0.6 K/uL (0.0-0.7); EOS % 3.9 % (0.0-4.0); HEMOGLOBIN 6.7 g/dL (12.0-16.0); LYMPH # 4.2 K/uL (1.0-4.3); MEAN CELL VOLUME 103.5 fl (81.0-99.0); MEAN CORPUSCULAR HEMOGLOBIN 36.3 pg (27.0-31.0); MEAN CORPUSCULAR HGB CONC 35.1 g/dL (33.0-37.0); MONO # 1.4 K/uL (0.0-0.8); MONO % 8.9 % (0.0-10.0); NEUT # 9.3 K/uL (1.8-7.0); NEUT % 59.4 % (50.0-75.0); NRBC % 0.3 % (0.0-0.0); RBC 1.85 Mil/uL (3.80-5.20); RED CELL DISTRIBUTION WIDTH 16.6 % (11.5-14.5); WHITE BLOOD COUNT 15.6 K/uL (4.8-10.8)
[2018-03-17 06:49] LABS: ALB/GLOB RATIO 1.3 (1.0-2.1); ALBUMIN 3.7 g/dL (3.5-5.0); ALT/SGPT 33 U/L (9-52); AST/SGOT 58 U/L (14-36); BLOOD UREA NITROGEN 4 mg/dl (7-17); CALCIUM 8.5 mg/dL (8.4-10.2); GFR NON-AFRICAN AMERICAN > 60
[2018-03-17] MEDS: Vitamin A/D oint 60G TP SCH ×2 (08:44→16:43)
--- NOTE | 2018-03-17 12:45 | CP.PCM.PN ---
Subjective - Date & Time of Evaluation Date of Evaluation: 03/17/18 Time of Evaluation: 11:00 - Subjective Subjective: Has pain. Objective - Vital Signs/Intake and Output Vital Signs (last 24 hours): Temp Pulse Resp BP Pulse Ox 98.2 F 95 H 18 105/65 96 03/17/18 08:45 03/17/18 08:45 03/17/18 08:45 03/17/18 08:45 03/17/18 08:45 - Medications Medications: Current Medications Acetaminophen (Tylenol 325mg Tab) 650 mg PO Q4 PRN PRN Reason: Fever >100.4 F Albuterol Sulfate (Albuterol 0.083% Inhal Ethel (2.5 Mg/3 Ml) Ud) 2.5 mg IH RQ4 PRN PRN Reason: Shortness of Breath Diphenhydramine HCl (Benadryl) 50 mg IVP Q6 PRN PRN Reason: Itching / Pruritus Last Admin: 03/17/18 09:57 Dose: 50 mg Folic Acid (Folic Acid) 1 mg PO DAILY [facility] Last Admin: 03/17/18 08:44 Dose: 1 mg Hydromorphone HCl (Dilaudid) 2 mg IVP Q4 PRN PRN Reason: Pain, severe (8-10) Last Admin: 03/17/18 11:44 Dose: 2 mg Hydroxyurea (Hydrea) 500 mg PO Q12 [facility] Last Admin: 03/17/18 08:44 Dose: 500 mg Ketorolac Tromethamine (Toradol) 30 mg IVP Q6 PRN PRN Reason: Pain, moderate (4-7) Ondansetron HCl (Zofran Inj) 4 mg IVP Q6 PRN PRN Reason: Nausea/Vomiting Last Admin: 03/16/18 08:47 Dose: 4 mg Vitamin A (Vitamin A&D) 1 applic TP BID [facility] Last Admin: 03/17/18 08:44 Dose: 1 applic - Labs Labs: 03/17/18 05:00 03/17/18 05:00 - Head Exam Head Exam: ATRAUMATIC - Eye Exam Eye Exam: Normal appearance - ENT Exam ENT Exam: Mucous Membranes Dry - Respiratory Exam Respiratory Exam: NORMAL BREATHING PATTERN - Cardiovascular Exam Cardiovascular Exam: +S1, +S2 - GI/Abdominal Exam GI & Abdominal Exam: Normal Bowel Sounds Assessment and Plan (1) Sickle cell pain crisis Assessment & Plan: IV fluids, pain meds, folic acid, 02 via NC no current transfusion indication unless hgb < 6 or pt symptomatic Status: Acute (2) Leukocytosis Assessment & Plan: likely reactive to sickle cell Status: Chronic (3) Iron overload due to repeated red blood cell transfusions Assessment & Plan: minimize transfusion support outpatient chelation but pt non compliant and does not follow with me as outpatient Status: Acute (4) Sickle cell anemia Assessment & Plan: folic acid and hydrea Status: Acute
--- NOTE | 2018-03-17 20:20 | CP.PCM.PN ---
Subjective - Date & Time of Evaluation Date of Evaluation: 03/17/18 Time of Evaluation: 20:19 - Subjective Subjective: pt doing well, still w/ pain in joints. bw noted. consult w/ heme/onc appriciated. Objective - Vital Signs/Intake and Output Vital Signs (last 24 hours): Temp Pulse Resp BP Pulse Ox 98.2 F 89 20 106/69 99 03/17/18 16:20 03/17/18 16:20 03/17/18 16:20 03/17/18 16:20 03/17/18 16:20 - Medications Medications: Current Medications Acetaminophen (Tylenol 325mg Tab) 650 mg PO Q4 PRN PRN Reason: Fever >100.4 F Albuterol Sulfate (Albuterol 0.083% Inhal Ethel (2.5 Mg/3 Ml) Ud) 2.5 mg IH RQ4 PRN PRN Reason: Shortness of Breath Diphenhydramine HCl (Benadryl) 50 mg IVP Q6 PRN PRN Reason: Itching / Pruritus Last Admin: 03/17/18 15:50 Dose: 50 mg Folic Acid (Folic Acid) 1 mg PO DAILY [facility] Last Admin: 03/17/18 08:44 Dose: 1 mg Hydromorphone HCl (Dilaudid) 2 mg IVP Q4 PRN PRN Reason: Pain, severe (8-10) Last Admin: 03/17/18 19:35 Dose: 2 mg Hydroxyurea (Hydrea) 500 mg PO Q12 [facility] Last Admin: 03/17/18 08:44 Dose: 500 mg Ketorolac Tromethamine (Toradol) 30 mg IVP Q6 PRN PRN Reason: Pain, moderate (4-7) Ondansetron HCl (Zofran Inj) 4 mg IVP Q6 PRN PRN Reason: Nausea/Vomiting Last Admin: 03/16/18 08:47 Dose: 4 mg Vitamin A (Vitamin A&D) 1 applic TP BID [facility] Last Admin: 03/17/18 16:43 Dose: 1 applic - Labs Labs: 03/17/18 05:00 03/17/18 05:00 - Constitutional Appears: Well, Non-toxic, No Acute Distress - Head Exam Head Exam: ATRAUMATIC, NORMAL INSPECTION, NORMOCEPHALIC - Eye Exam Eye Exam: EOMI, Normal appearance, PERRL Pupil Exam: NORMAL ACCOMODATION, PERRL - ENT Exam ENT Exam: Mucous Membranes Moist, Normal Exam - Neck Exam Neck Exam: Full ROM, Normal Inspection. absent: Lymphadenopathy - Respiratory Exam Respiratory Exam: Clear to Ausculation Bilateral, NORMAL BREATHING PATTERN - Cardiovascular Exam Cardiovascular Exam: REGULAR RHYTHM, RRR, +S1, +S2. absent: Murmur - GI/Abdominal Exam GI & Abdominal Exam: Soft, Normal Bowel Sounds. absent: Tenderness - Extremities Exam Extremities Exam: Full ROM, Normal Capillary Refill, Normal Inspection. absent: Joint Swelling, Pedal Edema - Back Exam Back Exam: NORMAL INSPECTION - Neurological Exam Neurological Exam: Alert, Awake, CN II-XII Intact, Normal Gait, Oriented x3 - Psychiatric Exam Psychiatric exam: Normal Affect, Normal Mood - Skin Skin Exam: Dry, Intact, Normal Color, Warm Assessment and Plan (1) Sickle cell crisis Assessment & Plan: pain control monitor bw heme/onc ivf Status: Chronic (2) Asthma, mild intermittent, well-controlled Assessment & Plan: albuterol prn Status: Acute (3) DVT prophylaxis Assessment & Plan: scd nad ae hose ambulation Status: Acute
[2018-03-18] MEDS: DiphenhydrAMINE 50 mg/ml Inj IVP PRN ×4 (04:42→23:08)
[2018-03-18 07:15] LABS: BASO # 0.1 K/uL (0.0-0.2); EOS # 0.6 K/uL (0.0-0.7); EOS % 4.6 % (0.0-4.0); LYMPH # 4.1 K/uL (1.0-4.3); LYMPH % 30.6 % (20.0-40.0); MEAN CELL VOLUME 104.9 fl (81.0-99.0); MEAN CORPUSCULAR HEMOGLOBIN 36.7 pg (27.0-31.0); MEAN PLATELET VOLUME 8.1 fl (7.2-11.7); MONO # 1.4 K/uL (0.0-0.8); MONO % 10.4 % (0.0-10.0); NEUT # 7.1 K/uL (1.8-7.0); NEUT % 53.4 % (50.0-75.0); NRBC % 0.3 % (0.0-0.0); RBC 1.74 Mil/uL (3.80-5.20); RED CELL DISTRIBUTION WIDTH 16.9 % (11.5-14.5); WHITE BLOOD COUNT 13.3 K/uL (4.8-10.8)
[2018-03-18 07:55] LABS: ALB/GLOB RATIO 1.4 (1.0-2.1); ALBUMIN 3.7 g/dL (3.5-5.0); ALT/SGPT 29 U/L (9-52); AST/SGOT 38 U/L (14-36); BLOOD UREA NITROGEN 3 mg/dl (7-17); CALCIUM 8.5 mg/dL (8.4-10.2); GFR NON-AFRICAN AMERICAN > 60
[2018-03-18 08:12] LABS: HEMOGLOBIN 6.4 g/dL (12.0-16.0)
--- NOTE | 2018-03-18 09:24 | CP.PCM.PN ---
Subjective - Date & Time of Evaluation Date of Evaluation: 03/18/18 Time of Evaluation: 09:22 - Subjective Subjective: pt still w/ pain focused left hand. hgb noted, per heme/onc no transfusion to be given at htis time. bw ntoed. afebrile, not wheezing Objective - Vital Signs/Intake and Output Vital Signs (last 24 hours): Temp Pulse Resp BP Pulse Ox 98.3 F 80 18 109/68 96 03/18/18 00:44 03/18/18 00:44 03/18/18 00:44 03/18/18 00:44 03/18/18 00:44 - Medications Medications: Current Medications Acetaminophen (Tylenol 325mg Tab) 650 mg PO Q4 PRN PRN Reason: Fever >100.4 F Albuterol Sulfate (Albuterol 0.083% Inhal Ethel (2.5 Mg/3 Ml) Ud) 2.5 mg IH RQ4 PRN PRN Reason: Shortness of Breath Diphenhydramine HCl (Benadryl) 50 mg IVP Q6 PRN PRN Reason: Itching / Pruritus Last Admin: 03/18/18 04:42 Dose: 50 mg Folic Acid (Folic Acid) 1 mg PO DAILY [facility] Last Admin: 03/18/18 08:45 Dose: 1 mg Hydromorphone HCl (Dilaudid) 2 mg IVP Q4 PRN PRN Reason: Pain, severe (8-10) Last Admin: 03/18/18 08:44 Dose: 2 mg Hydroxyurea (Hydrea) 500 mg PO Q12 [facility] Last Admin: 03/18/18 08:45 Dose: 500 mg Ketorolac Tromethamine (Toradol) 30 mg IVP Q6 PRN PRN Reason: Pain, moderate (4-7) Ondansetron HCl (Zofran Inj) 4 mg IVP Q6 PRN PRN Reason: Nausea/Vomiting Last Admin: 03/16/18 08:47 Dose: 4 mg Vitamin A (Vitamin A&D) 1 applic TP BID [facility] Last Admin: 03/17/18 16:43 Dose: 1 applic - Labs Labs: 03/18/18 05:30 03/18/18 05:30 - Constitutional Appears: Well, Non-toxic, No Acute Distress - Head Exam Head Exam: ATRAUMATIC, NORMAL INSPECTION, NORMOCEPHALIC - Eye Exam Eye Exam: EOMI, Normal appearance, PERRL Pupil Exam: NORMAL ACCOMODATION, PERRL - ENT Exam ENT Exam: Mucous Membranes Moist, Normal Exam - Neck Exam Neck Exam: Full ROM, Normal Inspection. absent: Lymphadenopathy - Respiratory Exam Respiratory Exam: Clear to Ausculation Bilateral, NORMAL BREATHING PATTERN - Cardiovascular Exam Cardiovascular Exam: REGULAR RHYTHM, RRR, +S1, +S2. absent: Murmur - GI/Abdominal Exam GI & Abdominal Exam: Soft, Normal Bowel Sounds. absent: Tenderness - Exam Bimanual exam: NORMAL BIMANUAL EXAM - Extremities Exam Extremities Exam: Full ROM, Normal Capillary Refill, Normal Inspection. absent: Joint Swelling, Pedal Edema Additional comments: left hand pain w/ rom - Back Exam Back Exam: NORMAL INSPECTION - Neurological Exam Neurological Exam: Alert, Awake, CN II-XII Intact, Normal Gait, Oriented x3 - Psychiatric Exam Psychiatric exam: Normal Affect, Normal Mood - Skin Skin Exam: Dry, Intact, Normal Color, Warm Assessment and Plan (1) Asthma, mild intermittent, well-controlled Assessment & Plan: albuterol Status: Acute (2) Sickle cell pain crisis Assessment & Plan: pain control monitor bw ivf, heme/onc home meds Status: Acute (3) DVT prophylaxis Assessment & Plan: scd and ae hose ambulation Status: Acute
[2018-03-18] MEDS: Vitamin A/D oint 60G TP SCH ×2 (11:07→16:43)
--- NOTE | 2018-03-18 19:40 | CP.PCM.PN ---
Subjective - Date & Time of Evaluation Date of Evaluation: 03/18/18 Time of Evaluation: 17:10 - Subjective Subjective: Has pain in her left arm and hand. Objective - Vital Signs/Intake and Output Vital Signs (last 24 hours): Temp Pulse Resp BP Pulse Ox 98.5 F 87 18 104/67 95 03/18/18 16:13 03/18/18 16:13 03/18/18 16:13 03/18/18 16:13 03/18/18 16:13 - Medications Medications: Current Medications Acetaminophen (Tylenol 325mg Tab) 650 mg PO Q4 PRN PRN Reason: Fever >100.4 F Albuterol Sulfate (Albuterol 0.083% Inhal Ethel (2.5 Mg/3 Ml) Ud) 2.5 mg IH RQ4 PRN PRN Reason: Shortness of Breath Diphenhydramine HCl (Benadryl) 50 mg IVP Q6 PRN PRN Reason: Itching / Pruritus Last Admin: 03/18/18 16:48 Dose: 50 mg Folic Acid (Folic Acid) 1 mg PO DAILY [facility] Last Admin: 03/18/18 08:45 Dose: 1 mg Hydromorphone HCl (Dilaudid) 2 mg IVP Q4 PRN PRN Reason: Pain, severe (8-10) Last Admin: 03/18/18 16:48 Dose: 2 mg Hydroxyurea (Hydrea) 500 mg PO Q12 [facility] Last Admin: 03/18/18 08:45 Dose: 500 mg Ketorolac Tromethamine (Toradol) 30 mg IVP Q6 PRN PRN Reason: Pain, moderate (4-7) Last Admin: 03/18/18 10:57 Dose: 30 mg Ondansetron HCl (Zofran Inj) 4 mg IVP Q6 PRN PRN Reason: Nausea/Vomiting Last Admin: 03/16/18 08:47 Dose: 4 mg Vitamin A (Vitamin A&D) 1 applic TP BID [facility] Last Admin: 03/18/18 16:43 Dose: 1 applic - Labs Labs: 03/18/18 05:30 03/18/18 05:30 - Head Exam Head Exam: ATRAUMATIC - Eye Exam Eye Exam: Normal appearance - ENT Exam ENT Exam: Mucous Membranes Dry - Respiratory Exam Respiratory Exam: NORMAL BREATHING PATTERN - Cardiovascular Exam Cardiovascular Exam: +S1, +S2 - GI/Abdominal Exam GI & Abdominal Exam: Normal Bowel Sounds Assessment and Plan (1) Sickle cell pain crisis Assessment & Plan: IV fluids, pain meds, folic acid, 02 via NC slight drop in hgb noted today recommend against transfusion unless patient hgb < 6 or symptomatic Status: Acute (2) Leukocytosis Assessment & Plan: reactive to sickle cell Status: Chronic (3) Iron overload due to repeated red blood cell transfusions Assessment & Plan: minimize transfusion support outpatient chelation; pt noncompliant and does not come to the office Status: Acute (4) Sickle cell anemia Assessment & Plan: outpatient hydroxyurea and folic acid Status: Acute
[2018-03-19 07:30] LABS: BASO # 0.1 K/uL (0.0-0.2); BASO % 0.7 % (0.0-2.0); EOS # 0.7 K/uL (0.0-0.7); EOS % 5.6 % (0.0-4.0); LYMPH # 3.9 K/uL (1.0-4.3); LYMPH % 30.1 % (20.0-40.0); MEAN CORPUSCULAR HEMOGLOBIN 37.3 pg (27.0-31.0); MEAN CORPUSCULAR HGB CONC 35.5 g/dL (33.0-37.0); MEAN PLATELET VOLUME 8.1 fl (7.2-11.7); MONO # 1.2 K/uL (0.0-0.8); MONO % 9.2 % (0.0-10.0); NEUT # 6.9 K/uL (1.8-7.0); NEUT % 54.4 % (50.0-75.0); NRBC % 1.1 % (0.0-0.0); RBC 1.6 Mil/uL (3.80-5.20); RED CELL DISTRIBUTION WIDTH 18.2 % (11.5-14.5); WHITE BLOOD COUNT 12.8 K/uL (4.8-10.8)
[2018-03-19 07:40] LABS: ALB/GLOB RATIO 1.2 (1.0-2.1); ALBUMIN 3.3 g/dL (3.5-5.0); ALT/SGPT 35 U/L (9-52); AST/SGOT 37 U/L (14-36); BLOOD UREA NITROGEN 3 mg/dl (7-17); CALCIUM 8.2 mg/dL (8.4-10.2); GFR NON-AFRICAN AMERICAN > 60
[2018-03-19] MEDS: Vitamin A/D oint 60G TP SCH ×2 (08:33→17:44)
[2018-03-19] MEDS: DiphenhydrAMINE 50 mg/ml Inj IVP PRN (08:42)
--- NOTE | 2018-03-19 09:59 | CP.PCM.PN ---
Subjective - Date & Time of Evaluation Date of Evaluation: 03/19/18 Time of Evaluation: 09:57 - Subjective Subjective: pt still w/ pain, states is now moving around. nof /c, n/v/d. hgb now 6.0. per dr ornelas 1 unit prbc. consent obtained. pain incr, pt crying in bed. Objective - Vital Signs/Intake and Output Vital Signs (last 24 hours): Temp Pulse Resp BP Pulse Ox 98.1 F 104 H 20 113/66 100 03/19/18 08:00 03/19/18 08:00 03/19/18 08:00 03/19/18 08:00 03/19/18 08:00 - Medications Medications: Current Medications Acetaminophen (Tylenol 325mg Tab) 650 mg PO Q4 PRN PRN Reason: Fever >100.4 F Albuterol Sulfate (Albuterol 0.083% Inhal Ethel (2.5 Mg/3 Ml) Ud) 2.5 mg IH RQ4 PRN PRN Reason: Shortness of Breath Diphenhydramine HCl (Benadryl) 50 mg IVP Q6 PRN PRN Reason: Itching / Pruritus Last Admin: 03/19/18 08:42 Dose: 50 mg Folic Acid (Folic Acid) 1 mg PO DAILY [facility] Last Admin: 03/19/18 08:33 Dose: 1 mg Hydromorphone HCl (Dilaudid) 2 mg IVP Q4 PRN PRN Reason: Pain, severe (8-10) Last Admin: 03/19/18 08:32 Dose: 2 mg Hydromorphone HCl (Dilaudid) 1 mg IVP STAT STA Stop: 03/19/18 09:55 Hydroxyurea (Hydrea) 500 mg PO Q12 [facility] Last Admin: 03/19/18 08:33 Dose: 500 mg Ketorolac Tromethamine (Toradol) 30 mg IVP Q6 PRN PRN Reason: Pain, moderate (4-7) Last Admin: 03/18/18 10:57 Dose: 30 mg Ondansetron HCl (Zofran Inj) 4 mg IVP Q6 PRN PRN Reason: Nausea/Vomiting Last Admin: 03/16/18 08:47 Dose: 4 mg Vitamin A (Vitamin A&D) 1 applic TP BID [facility] Last Admin: 03/19/18 08:33 Dose: 1 applic - Labs Labs: 03/19/18 05:30 03/19/18 05:30 - Constitutional Appears: Well, Non-toxic, No Acute Distress - Head Exam Head Exam: ATRAUMATIC, NORMAL INSPECTION, NORMOCEPHALIC - Eye Exam Eye Exam: EOMI, Normal appearance, PERRL Pupil Exam: NORMAL ACCOMODATION, PERRL - ENT Exam ENT Exam: Mucous Membranes Moist, Normal Exam - Neck Exam Neck Exam: Full ROM, Normal Inspection. absent: Lymphadenopathy - Respiratory Exam Respiratory Exam: Clear to Ausculation Bilateral, NORMAL BREATHING PATTERN - Cardiovascular Exam Cardiovascular Exam: REGULAR RHYTHM, RRR, +S1, +S2. absent: Murmur - GI/Abdominal Exam GI & Abdominal Exam: Soft, Normal Bowel Sounds. absent: Tenderness - Extremities Exam Extremities Exam: Full ROM, Normal Capillary Refill, Normal Inspection. absent: Joint Swelling, Pedal Edema - Back Exam Back Exam: NORMAL INSPECTION - Neurological Exam Neurological Exam: Alert, Awake, CN II-XII Intact, Normal Gait, Oriented x3 - Psychiatric Exam Psychiatric exam: Normal Affect, Normal Mood - Skin Skin Exam: Dry, Intact, Normal Color, Warm Assessment and Plan (1) Asthma, mild intermittent, well-controlled Assessment & Plan: albuterol prn Status: Acute (2) Sickle cell pain crisis Assessment & Plan: cont pain control, dilaudid x 1mg stat per dr ornelas-heme/onc 1 unit prbc benadryl to be changed to vistaril Status: Acute (3) DVT prophylaxis Assessment & Plan: scd and ae hose ambulation Status: Acute
[2018-03-19] MEDS: hydrOXYzine HCl 50 mg/ml Inj IM PRN ×2 (13:26→19:54)
[2018-03-19 17:53] LABS: FOLATE 18.1 ng/mL
[2018-03-20] MEDS: hydrOXYzine HCl 50 mg/ml Inj IM PRN ×2 (01:22→06:38)
--- NOTE | 2018-03-20 08:53 | CP.PCM.PN ---
Subjective - Date & Time of Evaluation Date of Evaluation: 03/20/18 Time of Evaluation: 08:51 - Subjective Subjective: pt rec'd 1 unit prbc overnight nad is feeling well at is time. no f/c, n/v/d. am labs pending as blood finished 629. no distress/complaints. requesting po vistaril to be changed to oral benadryl as im "hurts" Objective - Vital Signs/Intake and Output Vital Signs (last 24 hours): Temp Pulse Resp BP Pulse Ox 98.0 F 95 H 19 101/63 95 03/20/18 08:07 03/20/18 08:07 03/20/18 08:07 03/20/18 08:07 03/20/18 08:07 Intake and Output: 03/20/18 03/20/18 06:59 18:59 Intake Total 345 Balance 345 - Medications Medications: Current Medications Acetaminophen (Tylenol 325mg Tab) 650 mg PO Q4 PRN PRN Reason: Fever >100.4 F Albuterol Sulfate (Albuterol 0.083% Inhal Ethel (2.5 Mg/3 Ml) Ud) 2.5 mg IH RQ4 PRN PRN Reason: Shortness of Breath Diphenhydramine HCl (Benadryl) 50 mg IVP Q6 PRN PRN Reason: Itching / Pruritus Last Admin: 03/19/18 08:42 Dose: 50 mg Folic Acid (Folic Acid) 1 mg PO DAILY [facility] Last Admin: 03/19/18 08:33 Dose: 1 mg Hydromorphone HCl (Dilaudid) 2 mg IVP Q4 PRN PRN Reason: Pain, severe (8-10) Last Admin: 03/20/18 06:00 Dose: 2 mg Hydroxyurea (Hydrea) 500 mg PO Q12 [facility] Last Admin: 03/19/18 21:38 Dose: 500 mg Hydroxyzine HCl (Atarax) 50 mg IM Q6 PRN PRN Reason: Itching / Pruritus Last Admin: 03/20/18 06:38 Dose: 50 mg Ketorolac Tromethamine (Toradol) 30 mg IVP Q6 PRN PRN Reason: Pain, moderate (4-7) Last Admin: 03/18/18 10:57 Dose: 30 mg Ondansetron HCl (Zofran Inj) 4 mg IVP Q6 PRN PRN Reason: Nausea/Vomiting Last Admin: 03/16/18 08:47 Dose: 4 mg Vitamin A (Vitamin A&D) 1 applic TP BID [facility] Last Admin: 03/19/18 17:44 Dose: 1 applic - Labs Labs: 03/19/18 05:30 03/19/18 05:30 - Constitutional Appears: Well, Non-toxic, No Acute Distress - Head Exam Head Exam: ATRAUMATIC, NORMAL INSPECTION, NORMOCEPHALIC - Eye Exam Eye Exam: EOMI, Normal appearance, PERRL Pupil Exam: NORMAL ACCOMODATION, PERRL - ENT Exam ENT Exam: Mucous Membranes Moist, Normal Exam - Neck Exam Neck Exam: Full ROM, Normal Inspection. absent: Lymphadenopathy - Respiratory Exam Respiratory Exam: Clear to Ausculation Bilateral, NORMAL BREATHING PATTERN - Cardiovascular Exam Cardiovascular Exam: REGULAR RHYTHM, RRR, +S1, +S2. absent: Murmur - GI/Abdominal Exam GI & Abdominal Exam: Soft, Normal Bowel Sounds. absent: Tenderness - Extremities Exam Extremities Exam: Full ROM, Normal Capillary Refill, Normal Inspection. absent: Joint Swelling, Pedal Edema - Back Exam Back Exam: NORMAL INSPECTION - Neurological Exam Neurological Exam: Alert, Awake, CN II-XII Intact, Normal Gait, Oriented x3 - Psychiatric Exam Psychiatric exam: Normal Affect, Normal Mood - Skin Skin Exam: Dry, Intact, Normal Color, Warm Assessment and Plan (1) Asthma, mild intermittent, well-controlled Status: Acute (2) Sickle cell pain crisis Status: Acute (3) DVT prophylaxis Status: Acute - Assessment and Plan (Free Text) Assessment: (1) Asthma, mild intermittent, well-controlled Assessment & Plan: albuterol Status: Acute (2) Sickle cell pain crisis Assessment & Plan: pain control monitor bw ivf, heme/onc home meds Status: Acute (3) DVT prophylaxis Assessment & Plan: scd and ae hose ambulation Status: Acute
[2018-03-20] MEDS: Vitamin A/D oint 60G TP SCH ×2 (10:07→16:13)
[2018-03-20 15:19] LABS: BASO % 0.3 % (0.0-2.0); EOS # 0.5 K/uL (0.0-0.7); EOS % 3.8 % (0.0-4.0); HEMOGLOBIN 7.9 g/dL (12.0-16.0); LYMPH # 2.7 K/uL (1.0-4.3); LYMPH % 19.9 % (20.0-40.0); MEAN CELL VOLUME 102.5 fl (81.0-99.0); MEAN CORPUSCULAR HEMOGLOBIN 36.3 pg (27.0-31.0); MEAN CORPUSCULAR HGB CONC 35.4 g/dL (33.0-37.0); MEAN PLATELET VOLUME 8.4 fl (7.2-11.7); MONO # 1.2 K/uL (0.0-0.8); MONO % 8.8 % (0.0-10.0); NEUT % 67.2 % (50.0-75.0); NRBC % 1.8 % (0.0-0.0); RBC 2.19 Mil/uL (3.80-5.20); RED CELL DISTRIBUTION WIDTH 21.4 % (11.5-14.5); WHITE BLOOD COUNT 13.4 K/uL (4.8-10.8)
[2018-03-20 15:33] LABS: ALB/GLOB RATIO 1.3 (1.0-2.1); ALBUMIN 3.6 g/dL (3.5-5.0); ALT/SGPT 48 U/L (9-52); AST/SGOT 86 U/L (14-36); BLOOD UREA NITROGEN 3 mg/dl (7-17); CALCIUM 8.8 mg/dL (8.4-10.2); GFR NON-AFRICAN AMERICAN > 60
[2018-03-20 16:51] VITALS: O2SAT 96
[2018-03-21 06:55] LABS: BASO # 0.2 K/uL (0.0-0.2); BASO % 1.4 % (0.0-2.0); EOS # 0.7 K/uL (0.0-0.7); HEMOGLOBIN 8.4 g/dL (12.0-16.0); LYMPH # 3.9 K/uL (1.0-4.3); LYMPH % 29.3 % (20.0-40.0); MEAN CELL VOLUME 102.9 fl (81.0-99.0); MEAN CORPUSCULAR HEMOGLOBIN 36.3 pg (27.0-31.0); MEAN CORPUSCULAR HGB CONC 35.3 g/dL (33.0-37.0); MEAN PLATELET VOLUME 8.2 fl (7.2-11.7); MONO # 1.2 K/uL (0.0-0.8); MONO % 8.9 % (0.0-10.0); NEUT # 7.4 K/uL (1.8-7.0); NEUT % 55.4 % (50.0-75.0); NRBC % 1.3 % (0.0-0.0); RBC 2.32 Mil/uL (3.80-5.20); RED CELL DISTRIBUTION WIDTH 21.7 % (11.5-14.5); WHITE BLOOD COUNT 13.4 K/uL (4.8-10.8)
[2018-03-21 07:09] LABS: ALB/GLOB RATIO 1.3 (1.0-2.1); ALBUMIN 3.8 g/dL (3.5-5.0); ALT/SGPT 47 U/L (9-52); AST/SGOT 74 U/L (14-36); BLOOD UREA NITROGEN 9 mg/dl (7-17); CALCIUM 8.9 mg/dL (8.4-10.2); GFR NON-AFRICAN AMERICAN > 60
[2018-03-21] MEDS: Vitamin A/D oint 60G TP SCH (08:36)
[2018-03-21 08:56] VITALS: BP 99/65; PULSE 78; RESP 18; TEMP 98.3
--- NOTE | 2018-03-21 12:50 | CP.PCM.PN ---
Subjective - Date & Time of Evaluation Date of Evaluation: 03/20/18 Time of Evaluation: 20:00 - Subjective Subjective: Feeling better after transfusion Objective - Vital Signs/Intake and Output Vital Signs (last 24 hours): Temp Pulse Resp BP Pulse Ox 98.3 F 78 18 99/65 L 96 03/21/18 08:55 03/21/18 08:55 03/21/18 08:55 03/21/18 08:55 03/21/18 08:55 - Labs Labs: 03/21/18 05:00 03/21/18 05:00 - Head Exam Head Exam: ATRAUMATIC - Eye Exam Eye Exam: Normal appearance - ENT Exam ENT Exam: Mucous Membranes Dry - Respiratory Exam Respiratory Exam: NORMAL BREATHING PATTERN - Cardiovascular Exam Cardiovascular Exam: +S1, +S2 - GI/Abdominal Exam GI & Abdominal Exam: Normal Bowel Sounds Assessment and Plan (1) Sickle cell pain crisis Assessment & Plan: IV fluids, pain meds, folic acid, 02 via NC slight drop in hgb noted today recommend against transfusion unless patient hgb < 6 or symptomatic Status: Acute (2) Leukocytosis Assessment & Plan: reactive to sickle cell Status: Chronic (3) Iron overload due to repeated red blood cell transfusions Assessment & Plan: minimize transfusion support outpatient chelation; pt noncompliant and does not come to the office Status: Acute (4) Sickle cell anemia Assessment & Plan: outpatient hydroxyurea and folic acid Status: Acute
--- NOTE | 2018-03-21 12:52 | CP.PCM.DIS ---
Provider - Provider Date of Admission: 03/16/18 16:56 Attending physician: Kulwinder Vides MD Time Spent in preparation of Discharge (in minutes): 15 Diagnosis - Discharge Diagnosis (1) Asthma, mild intermittent, well-controlled Status: Acute (2) Sickle cell pain crisis Status: Acute (3) DVT prophylaxis Status: Acute Hospital Course - Lab Results Lab Results: Most Recent Lab Values WBC 13.4 K/uL (4.8-10.8) H 03/21/18 05:00 RBC 2.32 Mil/uL (3.80-5.20) L 03/21/18 05:00 Hgb 8.4 g/dL (12.0-16.0) L 03/21/18 05:00 Hct 23.9 % (34.0-47.0) L 03/21/18 05:00 MCV 102.9 fl (81.0-99.0) H 03/21/18 05:00 MCH 36.3 pg (27.0-31.0) H 03/21/18 05:00 MCHC 35.3 g/dL (33.0-37.0) 03/21/18 05:00 RDW 21.7 % (11.5-14.5) H 03/21/18 05:00 Plt Count 453 K/uL (130-400) H 03/21/18 05:00 MPV 8.2 fl (7.2-11.7) 03/21/18 05:00 Neut % (Auto) 55.4 % (50.0-75.0) 03/21/18 05:00 Lymph % (Auto) 29.3 % (20.0-40.0) 03/21/18 05:00 Forrest % (Auto) 8.9 % (0.0-10.0) 03/21/18 05:00 Eos % (Auto) 5.0 % (0.0-4.0) H 03/21/18 05:00 Baso % (Auto) 1.4 % (0.0-2.0) 03/21/18 05:00 Neut # (Auto) 7.4 K/uL (1.8-7.0) H 03/21/18 05:00 Lymph # (Auto) 3.9 K/uL (1.0-4.3) 03/21/18 05:00 Forrest # (Auto) 1.2 K/uL (0.0-0.8) H 03/21/18 05:00 Eos # (Auto) 0.7 K/uL (0.0-0.7) 03/21/18 05:00 Baso # (Auto) 0.2 K/uL (0.0-0.2) 03/21/18 05:00 Retic Count 14.6 % (0.5-1.5) H 03/21/18 05:00 Sodium 142 mmol/l (132-148) 03/21/18 05:00 Potassium 4.4 MMOL/L (3.6-5.0) 03/21/18 05:00 Chloride 107 mmol/L (98-107) 03/21/18 05:00 Carbon Dioxide 26 mmol/L (22-30) 03/21/18 05:00 Anion Gap 13 (10-20) 03/21/18 05:00 BUN 9 mg/dl (7-17) 03/21/18 05:00 Creatinine 0.4 mg/dl (0.7-1.2) L 03/21/18 05:00 Est GFR ( Amer) > 60 03/21/18 05:00 Est GFR (Non-Af Amer) > 60 03/21/18 05:00 Random Glucose 91 mg/dL (65-105) 03/21/18 05:00 Calcium 8.9 mg/dL (8.4-10.2) 03/21/18 05:00 Phosphorus 3.6 mg/dl (2.5-4.5) 03/16/18 05:18 Magnesium 1.8 MG/DL (1.6-2.3) 03/16/18 05:18 Ferritin 809.0 ng/Ml (6.24-137.0) H 03/19/18 05:30 Total Bilirubin 1.8 mg/dl (0.2-1.3) H 03/21/18 05:00 AST 74 U/L (14-36) H 03/21/18 05:00 ALT 47 U/L (9-52) 03/21/18 05:00 Alkaline Phosphatase 44 U/L (38-126) 03/21/18 05:00 Total Protein 6.8 G/DL (6.3-8.2) 03/21/18 05:00 Albumin 3.8 g/dL (3.5-5.0) 03/21/18 05:00 Globulin 3.0 gm/dL (2.2-3.9) 03/21/18 05:00 Albumin/Globulin Ratio 1.3 (1.0-2.1) 03/21/18 05:00 Vitamin B12 469 pg/mL (239-931) 03/19/18 05:30 Folate 18.1 ng/mL 03/19/18 05:30 Blood Type O POSITIVE 03/19/18 10:45 Antibody Screen Negative 03/19/18 10:45 Antibody Identification Anti K 03/19/18 10:45 Crossmatch See Detail 03/19/18 10:45 BBK History Checked Patient has bt 03/19/18 10:45 - Hospital Course Hospital Course: pain control transfuse 1 unit prbc heme/onc ivf Discharge Exam - Head Exam Head Exam: ATRAUMATIC, NORMAL INSPECTION, NORMOCEPHALIC - Eye Exam Eye Exam: EOMI, Normal appearance, PERRL Pupil Exam: NORMAL ACCOMODATION, PERRL - Respiratory Exam Respiratory Exam: Clear to PA & Lateral, NORMAL BREATHING PATTERN, UNREMARKABLE - Cardiovascular Exam Cardiovascular Exam: REGULAR RHYTHM, RRR, +S1, +S2 - GI/Abdominal Exam GI & Abdominal Exam: Normal Bowel Sounds, Soft, Unremarkable - Extremities Exam Extremities exam: full ROM, normal capillary refill, normal inspection, pedal pulses present - Neurological Exam Neurological exam: Alert, CN II-XII Intact, Normal Gait, Oriented x3, Reflexes Normal - Psychiatric Exam Psychiatric exam: Normal Affect, Normal Mood - Skin Skin Exam: Dry, Intact, Normal Color, Warm Discharge Plan - Discharge Medications Prescriptions: HYDROmorphone [Dilaudid] 2 mg PO Q4 PRN #10 tab PRN Reason: Pain, Severe (8-10) - Follow Up Plan Condition: STABLE Disposition: HOME/ ROUTINE Instructions: Chronic Pain, Sickle Cell Disease (DC) Additional Instructions: follow up with primary MD and fifth hand 1 week \ final dx SCA/crisis for dc, f/u rmg and heme/onc rted prn, meds per med rec f/u 1 wk for bw and chelation Referrals: Sammy Aranda MD [Staff Provider] - Rashaad Rojas, DNP, [employer] [Family Provider] -
--- NOTE | 2018-03-21 12:57 | CP.PCM.PN ---
Subjective - Date & Time of Evaluation Date of Evaluation: 03/21/18 Time of Evaluation: 11:00 - Subjective Subjective: Feeling better Objective - Vital Signs/Intake and Output Vital Signs (last 24 hours): Temp Pulse Resp BP Pulse Ox 98.3 F 78 18 99/65 L 96 03/21/18 08:55 03/21/18 08:55 03/21/18 08:55 03/21/18 08:55 03/21/18 08:55 - Labs Labs: 03/21/18 05:00 03/21/18 05:00 - Head Exam Head Exam: ATRAUMATIC - Eye Exam Eye Exam: Normal appearance - ENT Exam ENT Exam: Mucous Membranes Dry - Respiratory Exam Respiratory Exam: NORMAL BREATHING PATTERN - Cardiovascular Exam Cardiovascular Exam: +S1, +S2 - GI/Abdominal Exam GI & Abdominal Exam: Normal Bowel Sounds Assessment and Plan (1) Sickle cell pain crisis Assessment & Plan: IV fluids, pain meds, folic acid, 02 via NC slight drop in hgb noted today recommend against transfusion unless patient hgb < 6 or symptomatic Status: Acute (2) Leukocytosis Assessment & Plan: reactive to sickle cell Status: Chronic (3) Iron overload due to repeated red blood cell transfusions Assessment & Plan: minimize transfusion support outpatient chelation; pt noncompliant and does not come to the office Status: Acute (4) Sickle cell anemia Assessment & Plan: outpatient hydroxyurea and folic acid Status: Acute
== END 2018-03-21 10:22 | disposition home or self-care (01) | DRG 395 ==
LOC: H.ER 20:56 → H.ERHOLD 03-15 06:26 → H.MEDSURG1 03-15 08:23 → OBSVTOIN 03-16 16:56
PROVIDERS: ADMIT Family Medicine; ATTEND Family Medicine
PROC: 30243N1 Transfusion of Nonautologous Red Blood Cells into Central Vein, Percutaneous Approach (ICD-10-PCS; principal; 2018-03-20)
DX: D57.00 Hb-SS disease with crisis, unspecified (principal); J45.20 Mild intermittent asthma, uncomplicated; E83.111 Hemochromatosis due to repeated red blood cell transfusions; Z91.19 Patient's noncompliance with other medical treatment and regimen; Z91.040 Latex allergy status; D72.829 Elevated white blood cell count, unspecified

== ENCOUNTER 2018-09-16 05:55 | Inpatient (IN) | payer MEDICAID ==
[2018-09-16] MEDS ORDERED: Sodium Chloride 0.9% 1,000 ML IV STA ×2 (07:16→09:30)
--- NOTE | 2018-09-16 07:41 | ED PDOC ---
Upper Extremity Pain/Injury Time Seen by Provider: 09/16/18 07:04 Chief Complaint (Nursing): Upper Extremity Problem/Injury Chief Complaint (Provider): Right arm pain History Per: Patient History/Exam Limitations: no limitations Onset/Duration Of Symptoms: Hrs Current Symptoms Are (Timing): Still Present Quality: "Pain" Severity: Moderate Additional History Per: Patient Additional Complaint(s): 28yo female with history of sickle cell disease, comes to ER reporting right arm pain since 3 am today. She states the pain is typical of her sickle cell crisis episodes in the past. She otherwise denies any fever, chills, chest pain, or shortness of breath. No medications taken prior to arrival. PMD: Rashaad Rojas Past Medical History Reviewed: Historical Data, Nursing Documentation, Vital Signs Vital Signs: Last Vital Signs Temp 98.7 F 09/16/18 06:12 Pulse 94 H 09/16/18 06:12 Resp 16 09/16/18 06:12 BP 102/61 09/16/18 06:12 Pulse Ox 100 09/16/18 06:12 - Medical History PMH: Asthma, Sickle Cell Disease Denies: Alzheimer's Disease, Anemia, Anxiety, Arthritis, Atrial Fibrillation, Bipolar Disorder, Bronchitis, CAD, Cardia Arrhythmia, CHF, COPD, Crohn's Disease, Dementia, Depression, Diabetes, Diverticulitis, Emphysema, Fractures, Gastritis, Gall Bladder Disease, Hepatitis, HIV, HTN, Hypercholesterolemia, Hyperthyroidism, Hypothyroidism, Kidney Stones, Migraine, Mitral Valve Prolapse, Multiple Sclerosis, Osteoporosis, Pancreatitis, Paranoia, Parkinson's Disease, Peripheral Edema, Pneumonia, Post Traumatic Stress Disorder, Pulmonary Embolism, Chronic Kidney Disease, Rheumatoid Arthritis, Schizophrenia, Seizures, Sexually Transmitted Disease, Sleep Apnea, TIA - Surgical History Surgical History: Cholecystectomy Denies: Appendectomy, CABG, Carotid Endarterectomy, Coronary Stent, P acemaker, Tonsillectomy - Family History Family History: States: Unknown Family Hx - Immunization History Hx Tetanus Toxoid Vaccination: No Hx Influenza Vaccination: No Hx Pneumococcal Vaccination: No - Home Medications Home Medications: Ambulatory Orders Medication Instructions Recorded Albuterol 0.083% [Albuterol 0.083% 3 ml IH Q4 PRN 09/30/17 Inhal Ethel (2.5 mg/3 ml) UD] Albuterol Sulfate [Ventolin Hfa] 2 puff IH Q6 PRN 09/30/17 Folic Acid 1 mg PO DAILY 09/30/17 Hydroxyurea [Hydrea] 500 mg PO Q12 09/30/17 HYDROmorphone [Dilaudid] 2 mg PO Q4 PRN #10 tab 03/18/18 - Allergies Allergies/Adverse Reactions: Allergies Allergy/AdvReac Type Severity Reaction Status Date / Time latex Allergy RASH Verified 03/14/18 23:38 meperidine HCl [From Demerol] Allergy RASH Verified 03/14/18 23:38 Review of Systems ROS Statement: Except As Marked, All Systems Reviewed And Found Negative Constitutional: Negative for: Fever, Chills Cardiovascular: Negative for: Chest Pain Respiratory: Negative for: Shortness of Breath Musculoskeletal: Positive for: Arm Pain (right) Neurological: Negative for: Weakness, Numbness Physical Exam - Reviewed Nursing Documentation Reviewed: Yes Vital Signs Reviewed: Yes - Physical Exam Appears: Positive for: Non-toxic Head Exam: Positive for: ATRAUMATIC, NORMAL INSPECTION, NORMOCEPHALIC Skin: Positive for: Normal Color Eye Exam: Positive for: Normal appearance Neck: Positive for: Supple Cardiovascular/Chest: Positive for: Regular Rate, Rhythm. Negative for: Tachycardia Respiratory: Positive for: Normal Breath Sounds. Negative for: Respiratory Distress Pulses-Radial (L): 2+ Pulses-Radial (R): 2+ Gastrointestinal/Abdominal: Positive for: Soft Back: Positive for: Normal Inspection Extremity: Positive for: Normal ROM (FROM of all extremities). Negative for: Tenderness, Deformity, Swelling Neurological/Psych: Positive for: Awake, Alert, Oriented (x 3). Negative for: Motor/Sensory Deficits - Laboratory Results Result Diagrams: 09/17/18 05:05 09/17/18 05:05 - ECG O2 Sat by Pulse Oximetry: 100 (RA) Pulse Ox Interpretation: Normal - Radiology X-Ray: Interpreted by Ga X-Ray Interpretation: No Acute Disease - Progress Condition: Unchanged Medical Decision Making Medical Decision Makinyo female with sickle cell crisis Plan: -- Labs -- Morphine 3mg IV -- IV Fluids 0927 Labs reviewed, patient with elevated WBC. CXR ordered. On reassessment, patient reports persistent pain, 2nd dose of morphine 2mg IV given. Discussed with Rashaad Rojas, patient admitted due to sickle cell crisis. Scribe Attestation: Documented by Nena Altamirano acting as a scribe for Magy Salguero MD. Provider Attestation: All medical record entries made by the Scribe were at my direction and p ersonally dictated by me. I have reviewed the chart and agree that the record accurately reflects my personal performance of the history, physical exam, medical decision making, and the department course for this patient. I have also personally directed, reviewed, and agree with the discharge instructions and disposition. Disposition - Clinical Impression Clinical Impression: Sickle cell pain crisis - Patient ED Disposition Is Patient to be Admitted: Yes - Disposition Disposition Time: 09:30 Condition: STABLE - Pt Status Changed To: Hospital Disposition Of: Inpatient - Admit Certification Admit to Inpatient:: After my assessment, the patient will require hospitalization for at least two midnights. This is because of the severity of symptoms shown, intensity of services needed, and/or the medical risk in this patient being treated as an outpatient. - POA Present On Arrival: None
[2018-09-16] MEDS ORDERED: DiphenhydrAMINE 50 mg/ml Inj IVP STA ×2 (07:54→09:28)
[2018-09-16] MEDS ORDERED: DiphenhydrAMINE 50 mg/ml Inj ONE ×2 (07:57→09:31)
[2018-09-16 08:48] LABS: BASO # 0.2 K/uL (0.0-0.2); BASO % 1.1 % (0.0-2.0); EOS # 0.7 K/uL (0.0-0.7); EOS % 4.1 % (0.0-4.0); HEMOGLOBIN 7.8 g/dL (12.0-16.0); LYMPH % 18.5 % (20.0-40.0); MEAN CELL VOLUME 103.5 fl (81.0-99.0); MEAN CORPUSCULAR HEMOGLOBIN 35.6 pg (27.0-31.0); MEAN CORPUSCULAR HGB CONC 34.4 g/dL (33.0-37.0); MEAN PLATELET VOLUME 8.2 fl (7.2-11.7); MONO # 1.3 K/uL (0.0-0.8); MONO % 8.1 % (0.0-10.0); NEUT # 11.1 K/uL (1.8-7.0); NEUT % 68.2 % (50.0-75.0); NRBC % 0.6 % (0.0-0.0); RBC 2.2 Mil/uL (3.80-5.20); RED CELL DISTRIBUTION WIDTH 16.4 % (11.5-14.5); WHITE BLOOD COUNT 16.3 K/uL (4.8-10.8)
[2018-09-16 08:55] LABS: INR 1.1; PROTHROMBIN TIME 12.9 Seconds (9.8-13.1)
[2018-09-16 09:02] LABS: ALB/GLOB RATIO 1.5 (1.0-2.1); ALBUMIN 4.2 g/dL (3.5-5.0); ALT/SGPT 48 U/L (9-52); AST/SGOT 61 U/L (14-36); BLOOD UREA NITROGEN 5 mg/dl (7-17); CALCIUM 8.5 mg/dL (8.4-10.2); GFR NON-AFRICAN AMERICAN > 60
[2018-09-16] MEDS ORDERED: Potassium Chl 20 mEq in NS 1,000 ML IV SCH (10:00)
[2018-09-16] MEDS: Potassium Chl 20 mEq in NS 1,000 ML IV SCH ×2 (10:35→19:00)
--- NOTE | 2018-09-16 11:42 | HP ---
HISTORY OF PRESENT ILLNESS: The patient seen in the ER. No stress at this time, is complaining of right shoulder pain. Well known to this provider. She is non compliant with Hem/Onc followup. Has not had chelation in some time. Blood work is noted, WBC 16.9, hemoglobin 7.8, platelets 503, retic 16.9. The patient's baseline retic count is 11 to 13. Hemoglobin is about baseline for the patient. REVIEW OF SYSTEMS: Right shoulder pains, some body ache, and muscle cramps. PHYSICAL EXAMINATION: CONSTITUTIONAL: Awake, alert and oriented, exhibiting some signs of pain. HEENT: Normal. CARDIAC: S1 and S2. Regular rate and rhythm. No murmurs, rubs, or gallops. LUNGS: Clear in all walsh bilaterally. ABDOMEN: Soft, nontender. Bowel sounds x4. EXTREMITIES: Distal pulses, motor sensation is intact. Cap refill is brisk. Pain with palpation, range of motion to the right shoulder. DIAGNOSES AND PLAN: Sickle cell crisis, pain control, Dilaudid 2 mg every 4 hours, Benadryl 50 mg every 6 as per verbal contract with the patient on her admission. Hem/Onc consult, intravenous fluids with potassium. We will adjust fluids and electrolyte compound as indicated. Hypokalemia, KCl and intravenous fluids, we will monitor. Deep vein thrombosis prophylaxis, sequential compression devices, A-hose, ambulation. Further treatment as per patient's condition and specialist's input. NORMAN Francisco MTDChiqui
[2018-09-16] MEDS ORDERED: Albuterol HFA 90 mcg/actuation (8 g) IH PRN (11:47)
[2018-09-16] MEDS ORDERED: Albuterol 0.083% Inhal Sol (2.5 mg/3 mL) UD IH PRN (11:47)
[2018-09-16] MEDS: DiphenhydrAMINE 50 mg/ml Inj IVP PRN ×2 (13:36→20:09)
--- NOTE | 2018-09-16 14:20 | RAD ---
Date of service: 09/16/2018 HISTORY: Sickle cell crisis COMPARISON: Comparison chest dated 09/30/2017. TECHNIQUE: Chest PA and lateral views FINDINGS: In situ right subclavian MediPort. LUNGS: The interstitial markings are slightly increased and coarsened. No focal consolidation.. Note is made of an elliptical nodular appearing density right lateral lower lung field which overlies the right anterior 5th rib. This could represent confluence of shadow artifact or small bone island or osteoma however the possibility of a tiny bone infarct given the patient's history of sickle cell disease. Parenchymal nodule cannot be completely excluded.. PLEURA: No significant pleural effusion identified. No pneumothorax apparent. CARDIOVASCULAR: No aortic atherosclerotic calcification present. Normal cardiac size. No pulmonary vascular congestion. OSSEOUS STRUCTURES: No significant abnormalities. VISUALIZED UPPER ABDOMEN: Normal. OTHER FINDINGS: None. IMPRESSION: Slight increased and coarse interstitial markings. No focal consolidation. Small elliptical shaped nodular density overlying the right anterior 5th rib; rule out artifact or possibly bone island, osteoma, possibly small bone infarct or less likely parenchymal nodule. Follow-up nonemergent CT scan of the chest could be performed for further evaluation. This report was placed in PA review folder for follow up.
--- NOTE | 2018-09-16 15:40 | CP.PCM.CON ---
History of Present Illness - History of Present Illness History of Present Illness: 28 year old female with a history of sickle cell anemia admitted with sickle pain crisis. The patient reports to increasing pain involving her right arm, ribs and hips. This pain was not improved with her home medication and came to the ER. She also feels her pain was exacerbated by changes in the weather. She denies shortness of breath and chest pain. She has no fevers or chills. Past medical history: sickle cell anemia Past surgical history: portacath placement. Family history: Parents have sickle trait. Social history: Denies tobacco, alcohol, and illicit drug use. Allergies: meperidine. Review of systems: All remaining ROS including HEENT, cardiovascular, respiratory, gastrointestinal, genitourinary, musculoskeletal, dermatologic, neurologic, are psychiatric are negative unless mentioned in the HPI. Past Patient History - Infectious Disease Hx of Infectious Diseases: None - Past Medical History & Family History Past Medical History?: Yes - Past Social History Smoking Status: Light Smoker < 10 Cigarettes Daily - CARDIAC Hx Atrial Fibrillation: No Hx Cardia Arrhythmia: No Hx Congestive Heart Failure: No Hx Hypercholesterolemia: No Hx Hypertension: No Hx Mitral Valve Prolapse: No Hx Pacemaker: No Hx Peripheral Edema: No - PULMONARY Hx Respiratory Disorders: Yes - NEUROLOGICAL Hx Alzheimer's Disease: No Hx Dementia: No Hx Migraine: No Hx Multiple Sclerosis: No Hx Parkinson's Disease: No Hx Seizures: No Hx Transient Ischemic Attacks (TIA): No - HEENT Hx HEENT Problems: Yes - RENAL Hx Chronic Kidney Disease: No - ENDOCRINE/METABOLIC Hx Hyperthyroidism: No Hx Hypothyroidism: No - HEMATOLOGICAL/ONCOLOGICAL Hx Blood Disorders: Yes - INTEGUMENTARY Hx Dermatological Problems: No - MUSCULOSKELETAL/RHEUMATOLOGICAL Hx Arthritis: No Hx Fractures: No Hx Osteoporosis: No Hx Rheumatoid Arthritis: No - GASTROINTESTINAL Hx Crohn's Disease: No Hx Diverticulitis: No Hx Gall Bladder Disease: No Hx Gastritis: No Hx Pancreatitis: No - GENITOURINARY/GYNECOLOGICAL Hx Sexually Transmitted Disorders: No - PSYCHIATRIC Hx Psychophysiologic Disorder: Yes - SURGICAL HISTORY Hx Appendectomy: No Hx Carotid Endarterectomy: No Hx Cholecystectomy: Yes Hx Coronary Artery Bypass Graft: No Hx Coronary Stent: No Hx Tonsillectomy: No - ANESTHESIA Hx Anesthesia: Yes Hx Anesthesia Reactions: No Hx Malignant Hyperthermia: No Meds Allergies/Adverse Reactions: Allergies Allergy/AdvReac Type Severity Reaction Status Date / Time latex Allergy RASH Verified 10/23/18 23:38 meperidine HCl [From Demerol] Allergy RASH Verified 03/14/18 23:38 - Medications Medications: Current Medications Albuterol (Ventolin Hfa 90 Mcg/Actuation (8 G)) 2 puff IH RQ6 PRN PRN Reason: Shortness of Breath Albuterol Sulfate (Albuterol 0.083% Inhal Ethel (2.5 Mg/3 Ml) Ud) 2.5 mg IH RQ4 PRN PRN Reason: Shortness of Breath Last Admin: 09/16/18 13:46 Dose: 2.5 mg Diphenhydramine HCl (Benadryl) 50 mg IVP Q6 PRN PRN Reason: Itching / Pruritus Last Admin: 09/16/18 13:36 Dose: 50 mg Folic Acid (Folic Acid) 1 mg PO DAILY [facility] Hydromorphone HCl (Dilaudid) 2 mg IVP Q4 PRN PRN Reason: Pain, severe (8-10) Last Admin: 09/16/18 12:04 Dose: 2 mg Potassium Chloride/Sodium Chloride (Potassium Chl 20 Meq In Ns) 1,000 mls @ 125 mls/hr IV .Q8H [facility] Stop: 09/17/18 09:54 Last Admin: 09/16/18 10:35 Dose: 125 mls/hr Physical Exam - Head Exam Head Exam: ATRAUMATIC - Eye Exam Eye Exam: Normal appearance - ENT Exam ENT Exam: Mucous Membranes Dry - Respiratory Exam Respiratory Exam: NORMAL BREATHING PATTERN - Cardiovascular Exam Cardiovascular Exam: +S1, +S2 - GI/Abdominal Exam GI & Abdominal Exam: Normal Bowel Sounds - Extremities Exam Extremities exam: Positive for: normal inspection - Neurological Exam Neurological exam: Oriented x3 - Psychiatric Exam Psychiatric exam: Normal Affect, Normal Mood - Skin Skin Exam: Warm Results - Vital Signs Recent Vital Signs: Last Vital Signs Temp 97.8 F 09/16/18 11:55 Pulse 81 09/16/18 13:46 Resp 18 09/16/18 11:55 BP 96/50 L 09/16/18 11:55 Pulse Ox 96 09/16/18 11:55 - Labs Result Diagrams: 09/16/18 07:45 09/16/18 07:45 Labs: Laboratory Results - last 24 hr 09/16/18 09/16/18 09/16/18 07:45 07:45 07:45 WBC 16.3 H RBC 2.20 L Hgb 7.8 L Hct 22.8 L MCV 103.5 H MCH 35.6 H MCHC 34.4 RDW 16.4 H Plt Count 506 H MPV 8.2 Neut % (Auto) 68.2 Lymph % (Auto) 18.5 L [place] % (Auto) 8.1 Eos % (Auto) 4.1 H Baso % (Auto) 1.1 Neut # (Auto) 11.1 H Lymph # (Auto) 3.0 [place] # (Auto) 1.3 H Eos # (Auto) 0.7 Baso # (Auto) 0.2 Retic Count PT INR APTT Sodium 136 Potassium 3.4 L Chloride 103 Carbon Dioxide 26 Anion Gap 10 BUN 5 L Creatinine 0.4 L Est GFR ( Amer) > 60 Est GFR (Non-Af Amer) > 60 Random Glucose 94 Calcium 8.5 Total Bilirubin 3.1 H AST 61 H ALT 48 Alkaline Phosphatase 60 Total Protein 6.9 Albumin 4.2 Globulin 2.8 Albumin/Globulin Ratio 1.5 Blood Type O POSITIVE Antibody Screen Negative BBK History Checked Patient has bt 09/16/18 09/16/18 07:45 07:45 WBC RBC Hgb Hct MCV MCH MCHC RDW Plt Count MPV Neut % (Auto) Lymph % (Auto) [place] % (Auto) Eos % (Auto) Baso % (Auto) Neut # (Auto) Lymph # (Auto) [place] # (Auto) Eos # (Auto) Baso # (Auto) Retic Count 16.7 H PT 12.9 INR 1.1 APTT 32.0 Sodium Potassium Chloride Carbon Dioxide Anion Gap BUN Creatinine Est GFR ( Amer) Est GFR (Non-Af Amer) Random Glucose Calcium Total Bilirubin AST ALT Alkaline Phosphatase Total Protein Albumin Globulin Albumin/Globulin Ratio Blood Type Antibody Screen BBK History Checked Assessment & Plan (1) Sickle cell pain crisis Assessment and Plan: IV fluids, folic acid, 02 via NC, pain meds no current transfusion indication Status: Acute (2) Sickle cell anemia Assessment and Plan: outpatient folic acid and hydroxyurea Thank you for this interesting consult. Status: Acute
[2018-09-17] MEDS: DiphenhydrAMINE 50 mg/ml Inj IVP PRN ×4 (02:10→21:38)
[2018-09-17] MEDS: Potassium Chl 20 mEq in NS 1,000 ML IV SCH (02:14)
--- NOTE | 2018-09-17 06:17 | CARD ---
APPROVED REPORT Date of service: 09/16/2018 EKG Measurement Heart [id number] [id number] <Conclusion> Normal sinus rhythm Incomplete right bundle branch block Borderline ECG
[2018-09-17 07:00] LABS: BASO # 0.1 K/uL (0.0-0.2); BASO % 0.5 % (0.0-2.0); EOS # 0.6 K/uL (0.0-0.7); EOS % 4.5 % (0.0-4.0); HEMOGLOBIN 6.9 g/dL (12.0-16.0); LYMPH # 4.3 K/uL (1.0-4.3); MEAN CELL VOLUME 104.9 fl (81.0-99.0); MEAN CORPUSCULAR HEMOGLOBIN 35.4 pg (27.0-31.0); MEAN CORPUSCULAR HGB CONC 33.7 g/dL (33.0-37.0); MEAN PLATELET VOLUME 8.3 fl (7.2-11.7); MONO # 1.2 K/uL (0.0-0.8); MONO % 8.5 % (0.0-10.0); NEUT # 8.1 K/uL (1.8-7.0); NEUT % 56.5 % (50.0-75.0); NRBC % 0.8 % (0.0-0.0); RBC 1.94 Mil/uL (3.80-5.20); WHITE BLOOD COUNT 14.4 K/uL (4.8-10.8)
[2018-09-17 07:18] LABS: ALB/GLOB RATIO 1.4 (1.0-2.1); ALBUMIN 3.5 g/dL (3.5-5.0); ALT/SGPT 62 U/L (9-52); AST/SGOT 86 U/L (14-36); BLOOD UREA NITROGEN 2 mg/dl (7-17); CALCIUM 8.1 mg/dL (8.4-10.2); GFR NON-AFRICAN AMERICAN > 60
[2018-09-17] MEDS: Sodium Chloride 0.9% 1,000 ML IV SCH ×3 (12:30→20:15)
--- NOTE | 2018-09-17 21:19 | CP.PCM.PN ---
Subjective - Date & Time of Evaluation Date of Evaluation: 09/17/18 Time of Evaluation: 18:00 - Subjective Subjective: Has right arm pain, itching from dilaudid Objective - Vital Signs/Intake and Output Vital Signs (last 24 hours): Temp Pulse Resp BP Pulse Ox 98.2 F 82 18 95/62 L 96 09/17/18 17:00 09/17/18 17:00 09/17/18 17:00 09/17/18 17:00 09/17/18 17:00 - Medications Medications: Current Medications Albuterol (Ventolin Hfa 90 Mcg/Actuation (8 G)) 2 puff IH RQ6 PRN PRN Reason: Shortness of Breath Albuterol Sulfate (Albuterol 0.083% Inhal Ethel (2.5 Mg/3 Ml) Ud) 2.5 mg IH RQ4 PRN PRN Reason: Shortness of Breath Last Admin: 09/16/18 13:46 Dose: 2.5 mg Diphenhydramine HCl (Benadryl) 50 mg IVP Q6 PRN PRN Reason: Itching / Pruritus Last Admin: 09/17/18 15:42 Dose: 50 mg Folic Acid (Folic Acid) 1 mg PO DAILY [facility] Last Admin: 09/17/18 08:26 Dose: 1 mg Hydromorphone HCl (Dilaudid) 2 mg IVP Q4 PRN PRN Reason: Pain, severe (8-10) Last Admin: 09/17/18 16:43 Dose: 2 mg Sodium Chloride (Sodium Chloride 0.9%) 1,000 mls @ 125 mls/hr IV .Q8H [facility] Stop: 09/18/18 10:32 Last Admin: 09/17/18 20:15 Dose: 125 mls/hr - Labs Labs: 09/17/18 05:05 09/17/18 05:05 PT 12.9 Seconds (9.8-13.1) 09/16/18 07:45 INR 1.1 09/16/18 07:45 APTT 32.0 Seconds (25.6-37.1) 09/16/18 07:45 - Head Exam Head Exam: ATRAUMATIC - Eye Exam Eye Exam: Normal appearance - ENT Exam ENT Exam: Mucous Membranes Dry - Respiratory Exam Respiratory Exam: NORMAL BREATHING PATTERN - Cardiovascular Exam Cardiovascular Exam: +S1, +S2 - GI/Abdominal Exam GI & Abdominal Exam: Normal Bowel Sounds Assessment and Plan (1) Sickle cell pain crisis Assessment & Plan: IV fluids, folic acid, 02 via NC, pain meds declining H/H noted; likely related to hydration no current transfusion indication Status: Acute (2) Sickle cell anemia Assessment & Plan: folic acid and hydrea Status: Acute
[2018-09-18] MEDS: Sodium Chloride 0.9% 1,000 ML IV SCH ×2 (01:39→02:45)
[2018-09-18] MEDS: DiphenhydrAMINE 50 mg/ml Inj IVP PRN ×4 (03:29→22:34)
--- NOTE | 2018-09-18 06:29 | CP.PCM.PN ---
Subjective - Date & Time of Evaluation Date of Evaluation: 09/17/18 Time of Evaluation: 20:20 - Subjective Subjective: pr doing well pain controlled with medct final report noted no fcnbd hemeonc approxiated bw noted Objective - Vital Signs/Intake and Output Vital Signs (last 24 hours): Temp Pulse Resp BP Pulse Ox 98.8 F 82 19 97/59 L 95 09/18/18 00:08 09/18/18 00:08 09/18/18 00:08 09/18/18 00:08 09/18/18 00:08 - Medications Medications: Current Medications Albuterol (Ventolin Hfa 90 Mcg/Actuation (8 G)) 2 puff IH RQ6 PRN PRN Reason: Shortness of Breath Albuterol Sulfate (Albuterol 0.083% Inhal Ethel (2.5 Mg/3 Ml) Ud) 2.5 mg IH RQ4 PRN PRN Reason: Shortness of Breath Last Admin: 09/16/18 13:46 Dose: 2.5 mg Diphenhydramine HCl (Benadryl) 50 mg IVP Q6 PRN PRN Reason: Itching / Pruritus Last Admin: 09/18/18 03:29 Dose: 50 mg Folic Acid (Folic Acid) 1 mg PO DAILY [facility] Last Admin: 09/17/18 08:26 Dose: 1 mg Hydromorphone HCl (Dilaudid) 2 mg IVP Q4 PRN PRN Reason: Pain, severe (8-10) Last Admin: 09/18/18 05:38 Dose: 2 mg Sodium Chloride (Sodium Chloride 0.9%) 1,000 mls @ 125 mls/hr IV .Q8H [facility] Stop: 09/18/18 10:32 Last Admin: 09/18/18 01:39 Dose: 125 mls/hr - Labs Labs: 09/17/18 05:05 09/17/18 05:05 PT 12.9 Seconds (9.8-13.1) 09/16/18 07:45 INR 1.1 09/16/18 07:45 APTT 32.0 Seconds (25.6-37.1) 09/16/18 07:45
[2018-09-18 09:30] LABS: BASO # 0.1 K/uL (0.0-0.2); BASO % 0.6 % (0.0-2.0); EOS # 0.6 K/uL (0.0-0.7); EOS % 4.7 % (0.0-4.0); LYMPH # 3.2 K/uL (1.0-4.3); LYMPH % 25.3 % (20.0-40.0); MEAN CELL VOLUME 105.2 fl (81.0-99.0); MEAN CORPUSCULAR HEMOGLOBIN 35.8 pg (27.0-31.0); MEAN CORPUSCULAR HGB CONC 34.1 g/dL (33.0-37.0); MEAN PLATELET VOLUME 7.5 fl (7.2-11.7); MONO % 8.1 % (0.0-10.0); NEUT # 7.8 K/uL (1.8-7.0); NEUT % 61.3 % (50.0-75.0); NRBC % 0.6 % (0.0-0.0); RBC 1.94 Mil/uL (3.80-5.20); RED CELL DISTRIBUTION WIDTH 18.6 % (11.5-14.5); WHITE BLOOD COUNT 12.8 K/uL (4.8-10.8)
[2018-09-18 10:01] LABS: ALB/GLOB RATIO 1.5 (1.0-2.1); ALBUMIN 3.8 g/dL (3.5-5.0); ALT/SGPT 56 U/L (9-52); AST/SGOT 57 U/L (14-36); BLOOD UREA NITROGEN 2 mg/dl (7-17); CALCIUM 8.5 mg/dL (8.4-10.2); GFR NON-AFRICAN AMERICAN > 60
[2018-09-18] MEDS ORDERED: Potassium Chloride 20 mEq ER Tab PO ONE (12:51)
[2018-09-19] MEDS: Sodium Chloride 0.9% 1,000 ML IV SCH ×4 (03:49→22:20)
[2018-09-19] MEDS: DiphenhydrAMINE 50 mg/ml Inj IVP PRN ×4 (03:53→21:59)
[2018-09-19 06:38] LABS: BASO # 0.1 K/uL (0.0-0.2); BASO % 0.5 % (0.0-2.0); EOS # 0.7 K/uL (0.0-0.7); LYMPH # 3.7 K/uL (1.0-4.3); LYMPH % 30.7 % (20.0-40.0); MEAN CELL VOLUME 107.5 fl (81.0-99.0); MEAN CORPUSCULAR HEMOGLOBIN 37.1 pg (27.0-31.0); MEAN CORPUSCULAR HGB CONC 34.5 g/dL (33.0-37.0); MEAN PLATELET VOLUME 7.8 fl (7.2-11.7); MONO # 1.1 K/uL (0.0-0.8); MONO % 8.9 % (0.0-10.0); NEUT # 6.4 K/uL (1.8-7.0); NEUT % 53.9 % (50.0-75.0); NRBC % 1.2 % (0.0-0.0); RED CELL DISTRIBUTION WIDTH 19.1 % (11.5-14.5); WHITE BLOOD COUNT 11.9 K/uL (4.8-10.8)
[2018-09-19 06:46] LABS: HEMOGLOBIN 6.6 g/dL (12.0-16.0)
[2018-09-19 06:47] LABS: RBC 1.78 Mil/uL (3.80-5.20)
[2018-09-19 06:48] LABS: ALB/GLOB RATIO 1.3 (1.0-2.1); ALBUMIN 3.1 g/dL (3.5-5.0); ALT/SGPT 51 U/L (9-52); AST/SGOT 40 U/L (14-36); BLOOD UREA NITROGEN 2 mg/dl (7-17); CALCIUM 7.4 mg/dL (8.4-10.2); GFR NON-AFRICAN AMERICAN > 60
--- NOTE | 2018-09-19 08:18 | PN ---
DATE: 09/18/2018 SUBJECTIVE: The patient is seen in bed, doing well. The pain is improving. The swelling to the right upper extremity appears to be improving. She is able to open and close her hands easier. No numbness or tingling. No shortness of breath. No fever, chills, nausea, vomiting, or diarrhea. A.m. labs are pending. Consult by Hematology/Oncology is appreciated. REVIEW OF SYSTEMS: Right upper extremity pain, swelling, and cramping appears to be improving. PHYSICAL EXAMINATION: CONSTITUTIONAL: Awake, alert and oriented. HEENT: Normal. CARDIAC: S1 and S2. Regular rate and rhythm. No murmurs, rubs, or gallops. LUNGS: Clear in all walsh bilaterally. ABDOMEN: Soft, nontender. Bowel sounds x4. EXTREMITIES: Distal pulses and motor sensation intact. Cap refill is brisk. Discomfort with range of motion and palpation to the right shoulder area. DIAGNOSES AND PLAN: Sickle cell anemia with crisis. Continue pain control, fluids, Benadryl p.r.n. Continue Hematology/Oncology consult. Follow up labs. As per Dr. Aranda, no transfusion at this time. I will continue to follow with him. Will discuss the case with him once the labs are resulted. Deep vein thrombosis prophylaxis, sequential compression devices, A-hose, ambulation. Asthma, mild and intermittent, but controlled at present. No exacerbation is noted. Albuterol p.r.n. NORMAN Francisco MTDD
[2018-09-19] MEDS ORDERED: Potassium Chloride 20 mEq ER Tab PO ONE (10:07)
--- NOTE | 2018-09-19 12:04 | CP.PCM.PN ---
Subjective - Date & Time of Evaluation Date of Evaluation: 09/19/18 Time of Evaluation: 12:04 - Subjective Subjective: doing well. receiving transfusion as per heme/onc for hgb 6.6 pain improving. no f/,c n/v/d. all labs noted. Objective - Vital Signs/Intake and Output Vital Signs (last 24 hours): Temp Pulse Resp BP Pulse Ox 98.1 F 87 18 100/62 98 09/19/18 10:43 09/19/18 10:43 09/19/18 10:43 09/19/18 10:43 09/19/18 08:13 Intake and Output: 09/19/18 09/19/18 06:59 18:59 Intake Total 0 Balance 0 - Medications Medications: Current Medications Albuterol (Ventolin Hfa 90 Mcg/Actuation (8 G)) 2 puff IH RQ6 PRN PRN Reason: Shortness of Breath Last Admin: 09/18/18 09:26 Dose: 2 puff Albuterol Sulfate (Albuterol 0.083% Inhal Ethel (2.5 Mg/3 Ml) Ud) 2.5 mg IH RQ4 PRN PRN Reason: Shortness of Breath Last Admin: 09/16/18 13:46 Dose: 2.5 mg Diphenhydramine HCl (Benadryl) 50 mg IVP Q6 PRN PRN Reason: Itching / Pruritus Last Admin: 09/19/18 10:23 Dose: 50 mg Folic Acid (Folic Acid) 1 mg PO DAILY [facility] Last Admin: 09/19/18 09:25 Dose: 1 mg Hydromorphone HCl (Dilaudid) 2 mg IVP Q4 PRN PRN Reason: Pain, severe (8-10) Last Admin: 09/19/18 10:23 Dose: 2 mg Hydroxyurea (Hydrea) 500 mg PO Q12 [facility] Last Admin: 09/19/18 10:31 Dose: 500 mg Sodium Chloride (Sodium Chloride 0.9%) 1,000 mls @ 125 mls/hr IV .Q8H [facility] Stop: 09/20/18 03:43 Last Admin: 09/19/18 03:49 Dose: 125 mls/hr - Labs Labs: 09/19/18 06:05 09/19/18 06:05 PT 12.9 Seconds (9.8-13.1) 09/16/18 07:45 INR 1.1 09/16/18 07:45 APTT 32.0 Seconds (25.6-37.1) 09/16/18 07:45 - Constitutional Appears: Well, Non-toxic, No Acute Distress - Head Exam Head Exam: ATRAUMATIC, NORMAL INSPECTION, NORMOCEPHALIC - Eye Exam Eye Exam: EOMI, Normal appearance, PERRL Pupil Exam: NORMAL ACCOMODATION, PERRL - ENT Exam ENT Exam: Mucous Membranes Moist, Normal Exam - Neck Exam Neck Exam: Full ROM, Normal Inspection. absent: Lymphadenopathy - Respiratory Exam Respiratory Exam: Clear to Ausculation Bilateral, NORMAL BREATHING PATTERN - Cardiovascular Exam Cardiovascular Exam: REGULAR RHYTHM, RRR, +S1, +S2. absent: Murmur - GI/Abdominal Exam GI & Abdominal Exam: Soft, Normal Bowel Sounds. absent: Tenderness - Extremities Exam Extremities Exam: Full ROM, Normal Capillary Refill, Normal Inspection. absent: Joint Swelling, Pedal Edema - Back Exam Back Exam: NORMAL INSPECTION - Neurological Exam Neurological Exam: Alert, Awake, CN II-XII Intact, Normal Gait, Oriented x3 - Psychiatric Exam Psychiatric exam: Normal Affect, Normal Mood - Skin Skin Exam: Dry, Intact, Normal Color, Warm Assessment and Plan (1) Sickle cell pain crisis Assessment & Plan: cont pain control monitor bw heme/onc transfusion today Status: Acute (2) Asthma, mild intermittent, well-controlled Assessment & Plan: albuterol prn Status: Acute (3) DVT prophylaxis Assessment & Plan: scd and ae hose ambulation Status: Acute
--- NOTE | 2018-09-19 21:49 | CP.PCM.PN ---
Subjective - Date & Time of Evaluation Date of Evaluation: 09/18/18 Time of Evaluation: 19:00 - Subjective Subjective: Has right arm pain. Objective - Vital Signs/Intake and Output Vital Signs (last 24 hours): Temp Pulse Resp BP Pulse Ox 97.8 F 69 18 106/69 93 L 09/19/18 16:20 09/19/18 16:20 09/19/18 16:20 09/19/18 16:20 09/19/18 16:20 Intake and Output: 09/19/18 09/20/18 18:59 06:59 Intake Total 325 Balance 325 - Medications Medications: Current Medications Albuterol (Ventolin Hfa 90 Mcg/Actuation (8 G)) 2 puff IH RQ6 PRN PRN Reason: Shortness of Breath Last Admin: 09/18/18 09:26 Dose: 2 puff Albuterol Sulfate (Albuterol 0.083% Inhal Ethel (2.5 Mg/3 Ml) Ud) 2.5 mg IH RQ4 PRN PRN Reason: Shortness of Breath Last Admin: 09/16/18 13:46 Dose: 2.5 mg Diphenhydramine HCl (Benadryl) 50 mg IVP Q6 PRN PRN Reason: Itching / Pruritus Last Admin: 09/19/18 16:25 Dose: 50 mg Folic Acid (Folic Acid) 1 mg PO DAILY [facility] Last Admin: 09/19/18 09:25 Dose: 1 mg Hydromorphone HCl (Dilaudid) 2 mg IVP Q4 PRN PRN Reason: Pain, severe (8-10) Last Admin: 09/19/18 18:21 Dose: 2 mg Hydroxyurea (Hydrea) 500 mg PO Q12 [facility] Last Admin: 09/19/18 10:31 Dose: 500 mg Sodium Chloride (Sodium Chloride 0.9%) 1,000 mls @ 125 mls/hr IV .Q8H [facility] Stop: 09/20/18 03:43 Last Admin: 09/19/18 13:11 Dose: 125 mls/hr - Labs Labs: 09/19/18 06:05 09/19/18 06:05 PT 12.9 Seconds (9.8-13.1) 09/16/18 07:45 INR 1.1 09/16/18 07:45 APTT 32.0 Seconds (25.6-37.1) 09/16/18 07:45 - Head Exam Head Exam: ATRAUMATIC - Eye Exam Eye Exam: Normal appearance - ENT Exam ENT Exam: Mucous Membranes Dry - Respiratory Exam Respiratory Exam: Decreased Breath Sounds - Cardiovascular Exam Cardiovascular Exam: +S1, +S2 - GI/Abdominal Exam GI & Abdominal Exam: Normal Bowel Sounds Assessment and Plan (1) Sickle cell pain crisis Assessment & Plan: IV fluids, folic acid, 02 via NC, pain meds declining H/H noted; likely related to hydration no current transfusion indication Status: Acute (2) Sickle cell anemia Assessment & Plan: folic acid and hydrea Status: Acute
--- NOTE | 2018-09-19 21:50 | CP.PCM.PN ---
Subjective - Date & Time of Evaluation Date of Evaluation: 09/19/18 Time of Evaluation: 20:00 - Subjective Subjective: Feeling better s/p 1U PRBC Objective - Vital Signs/Intake and Output Vital Signs (last 24 hours): Temp Pulse Resp BP Pulse Ox 97.8 F 69 18 106/69 93 L 09/19/18 16:20 09/19/18 16:20 09/19/18 16:20 09/19/18 16:20 09/19/18 16:20 Intake and Output: 09/19/18 09/20/18 18:59 06:59 Intake Total 325 Balance 325 - Medications Medications: Current Medications Albuterol (Ventolin Hfa 90 Mcg/Actuation (8 G)) 2 puff IH RQ6 PRN PRN Reason: Shortness of Breath Last Admin: 09/18/18 09:26 Dose: 2 puff Albuterol Sulfate (Albuterol 0.083% Inhal Ethel (2.5 Mg/3 Ml) Ud) 2.5 mg IH RQ4 PRN PRN Reason: Shortness of Breath Last Admin: 09/16/18 13:46 Dose: 2.5 mg Diphenhydramine HCl (Benadryl) 50 mg IVP Q6 PRN PRN Reason: Itching / Pruritus Last Admin: 09/19/18 16:25 Dose: 50 mg Folic Acid (Folic Acid) 1 mg PO DAILY [facility] Last Admin: 09/19/18 09:25 Dose: 1 mg Hydromorphone HCl (Dilaudid) 2 mg IVP Q4 PRN PRN Reason: Pain, severe (8-10) Last Admin: 09/19/18 18:21 Dose: 2 mg Hydroxyurea (Hydrea) 500 mg PO Q12 [facility] Last Admin: 09/19/18 10:31 Dose: 500 mg Sodium Chloride (Sodium Chloride 0.9%) 1,000 mls @ 125 mls/hr IV .Q8H [facility] Stop: 09/20/18 03:43 Last Admin: 09/19/18 13:11 Dose: 125 mls/hr - Labs Labs: 09/19/18 06:05 09/19/18 06:05 PT 12.9 Seconds (9.8-13.1) 09/16/18 07:45 INR 1.1 09/16/18 07:45 APTT 32.0 Seconds (25.6-37.1) 09/16/18 07:45 - Head Exam Head Exam: ATRAUMATIC - Eye Exam Eye Exam: Normal appearance - ENT Exam ENT Exam: Mucous Membranes Dry - Respiratory Exam Respiratory Exam: NORMAL BREATHING PATTERN - Cardiovascular Exam Cardiovascular Exam: +S1, +S2 - GI/Abdominal Exam GI & Abdominal Exam: Normal Bowel Sounds Assessment and Plan (1) Sickle cell pain crisis Assessment & Plan: IV fluids, folic acid, 02 via NC, pain meds declining H/H noted; likely related to hydration 1U PRBC today Status: Acute (2) Sickle cell anemia Assessment & Plan: folic acid and hydrea Status: Acute
[2018-09-19 23:57] VITALS: RESP 20
[2018-09-20] MEDS: DiphenhydrAMINE 50 mg/ml Inj IVP PRN ×2 (04:33→09:39)
[2018-09-20 06:47] LABS: BASO % 0.4 % (0.0-2.0); EOS # 0.8 K/uL (0.0-0.7); EOS % 6.3 % (0.0-4.0); LYMPH # 3.2 K/uL (1.0-4.3); LYMPH % 26.6 % (20.0-40.0); MEAN CORPUSCULAR HEMOGLOBIN 35.7 pg (27.0-31.0); MEAN CORPUSCULAR HGB CONC 34.7 g/dL (33.0-37.0); MEAN PLATELET VOLUME 7.8 fl (7.2-11.7); MONO # 1.1 K/uL (0.0-0.8); MONO % 8.9 % (0.0-10.0); NEUT % 57.8 % (50.0-75.0); NRBC % 1.3 % (0.0-0.0); RBC 2.41 Mil/uL (3.80-5.20); RED CELL DISTRIBUTION WIDTH 18.7 % (11.5-14.5); WHITE BLOOD COUNT 12.1 K/uL (4.8-10.8)
[2018-09-20 06:57] LABS: HEMOGLOBIN 8.6 g/dL (12.0-16.0)
[2018-09-20 06:59] LABS: ALB/GLOB RATIO 1.4 (1.0-2.1); ALT/SGPT 41 U/L (9-52); AST/SGOT 53 U/L (14-36); BLOOD UREA NITROGEN 5 mg/dl (7-17); CALCIUM 8.9 mg/dL (8.4-10.2); GFR NON-AFRICAN AMERICAN > 60
[2018-09-20 08:29] VITALS: BP 104/63; PULSE 78; TEMP 97.6; O2SAT 94
--- NOTE | 2018-09-20 09:17 | CP.PCM.DIS ---
Provider - Provider Date of Admission: 09/16/18 09:34 Attending physician: Kulwinder Vides MD Consults: 09/16/18 09:54 Hematology Oncology Consult Stat Comment: Consulting Provider: Sammy Aranda Consulting Physician: Sammy Aranda Reason for Consult: [facility] 09/16/18 18:45 Pastoral Care Referral Routine Comment: Physician Instructions: Reason For Exam: spiritual care Time Spent in preparation of Discharge (in minutes): 15 Diagnosis - Discharge Diagnosis (1) Sickle cell pain crisis Status: Acute (2) Asthma, mild intermittent, well-controlled Status: Acute (3) DVT prophylaxis Status: Acute Hospital Course - Lab Results Lab Results: Most Recent Lab Values WBC 12.1 K/uL (4.8-10.8) H 09/20/18 05:20 RBC 2.41 Mil/uL (3.80-5.20) L 09/20/18 05:20 Hgb 8.6 g/dL (12.0-16.0) L D 09/20/18 05:20 Hct 24.9 % (34.0-47.0) L 09/20/18 05:20 MCV 103.0 fl (81.0-99.0) H D 09/20/18 05:20 MCH 35.7 pg (27.0-31.0) H 09/20/18 05:20 MCHC 34.7 g/dL (33.0-37.0) 09/20/18 05:20 RDW 18.7 % (11.5-14.5) H 09/20/18 05:20 Plt Count 522 K/uL (130-400) H 09/20/18 05:20 MPV 7.8 fl (7.2-11.7) 09/20/18 05:20 Neut % (Auto) 57.8 % (50.0-75.0) 09/20/18 05:20 Lymph % (Auto) 26.6 % (20.0-40.0) 09/20/18 05:20 [place] % (Auto) 8.9 % (0.0-10.0) 09/20/18 05:20 Eos % (Auto) 6.3 % (0.0-4.0) H 09/20/18 05:20 Baso % (Auto) 0.4 % (0.0-2.0) 09/20/18 05:20 Neut # (Auto) 7.0 K/uL (1.8-7.0) 09/20/18 05:20 Lymph # (Auto) 3.2 K/uL (1.0-4.3) 09/20/18 05:20 [place] # (Auto) 1.1 K/uL (0.0-0.8) H 09/20/18 05:20 Eos # (Auto) 0.8 K/uL (0.0-0.7) H 09/20/18 05:20 Baso # (Auto) 0.0 K/uL (0.0-0.2) 09/20/18 05:20 Retic Count 14.9 % (0.5-1.5) H 09/20/18 05:20 PT 12.9 Seconds (9.8-13.1) 09/16/18 07:45 INR 1.1 09/16/18 07:45 APTT 32.0 Seconds (25.6-37.1) 09/16/18 07:45 Sodium 139 mmol/l (132-148) 09/20/18 05:20 Potassium 4.0 MMOL/L (3.6-5.0) 09/20/18 05:20 Chloride 104 mmol/L (98-107) 09/20/18 05:20 Carbon Dioxide 26 mmol/L (22-30) 09/20/18 05:20 Anion Gap 13 (10-20) 09/20/18 05:20 BUN 5 mg/dl (7-17) L 09/20/18 05:20 Creatinine 0.5 mg/dl (0.7-1.2) L 09/20/18 05:20 Est GFR ( Amer) > 60 09/20/18 05:20 Est GFR (Non-Af Amer) > 60 09/20/18 05:20 Random Glucose 101 mg/dL (65-105) 09/20/18 05:20 Calcium 8.9 mg/dL (8.4-10.2) 09/20/18 05:20 Total Bilirubin 1.8 mg/dl (0.2-1.3) H 09/20/18 05:20 AST 53 U/L (14-36) H D 09/20/18 05:20 ALT 41 U/L (9-52) 09/20/18 05:20 Alkaline Phosphatase 48 U/L (38-126) 09/20/18 05:20 Total Protein 6.7 G/DL (6.3-8.2) 09/20/18 05:20 Albumin 4.0 g/dL (3.5-5.0) 09/20/18 05:20 Globulin 2.8 gm/dL (2.2-3.9) 09/20/18 05:20 Albumin/Globulin Ratio 1.4 (1.0-2.1) 09/20/18 05:20 Blood Type O POSITIVE 09/19/18 07:51 Antibody Screen Negative 09/19/18 07:51 Crossmatch See Detail 09/19/18 07:51 BBK History Checked Patient has bt 09/19/18 07:51 - Hospital Course Hospital Course: pt admitted for scc, heme/onc was involved. rec'd ivf, pain control, 1 unit prbc. cbc, cmp, retic was monitored. Discharge Exam - Head Exam Head Exam: ATRAUMATIC, NORMAL INSPECTION, NORMOCEPHALIC - Eye Exam Eye Exam: EOMI, Normal appearance, PERRL Pupil Exam: NORMAL ACCOMODATION, PERRL - Respiratory Exam Respiratory Exam: Clear to PA & Lateral, NORMAL BREATHING PATTERN, UNREMARKABLE - Cardiovascular Exam Cardiovascular Exam: REGULAR RHYTHM, RRR, +S1, +S2 - GI/Abdominal Exam GI & Abdominal Exam: Normal Bowel Sounds, Soft - Extremities Exam Extremities exam: full ROM, normal capillary refill, normal inspection, pedal pulses present - Back Exam Back exam: FULL ROM, NORMAL INSPECTION - Neurological Exam Neurological exam: Alert, CN II-XII Intact, Normal Gait, Oriented x3, Reflexes Normal - Psychiatric Exam Psychiatric exam: Normal Affect, Normal Mood - Skin Skin Exam: Dry, Intact, Normal Color, Warm Discharge Plan - Follow Up Plan Condition: STABLE Disposition: HOME/ ROUTINE Instructions: Sickle Cell Disease (DC) Additional Instructions: follow up with your primary MD 1 week final dx-sca w/ pain crisis no f/c, n/v/d. pain controled. hgb 8.[address] dc [address] aranda doing well, julius po, dc and f/u for outpt continued care. Referrals: Sammy Aranda MD [Staff Provider] - Rashaad Rojas, DNP, [employer] [Family Provider] -
--- NOTE | 2018-09-20 11:09 | CP.PCM.PN ---
Subjective - Date & Time of Evaluation Date of Evaluation: 09/20/18 Time of Evaluation: 09:00 - Subjective Subjective: Feeling better. Objective - Vital Signs/Intake and Output Vital Signs (last 24 hours): Temp Pulse Resp BP Pulse Ox 97.6 F 78 20 104/63 94 L 09/20/18 08:28 09/20/18 08:28 09/20/18 08:28 09/20/18 08:28 09/20/18 08:28 - Medications Medications: Current Medications Albuterol (Ventolin Hfa 90 Mcg/Actuation (8 G)) 2 puff IH RQ6 PRN PRN Reason: Shortness of Breath Last Admin: 09/18/18 09:26 Dose: 2 puff Albuterol Sulfate (Albuterol 0.083% Inhal Ethel (2.5 Mg/3 Ml) Ud) 2.5 mg IH RQ4 PRN PRN Reason: Shortness of Breath Last Admin: 09/16/18 13:46 Dose: 2.5 mg Diphenhydramine HCl (Benadryl) 50 mg IVP Q6 PRN PRN Reason: Itching / Pruritus Last Admin: 09/20/18 09:39 Dose: 50 mg Folic Acid (Folic Acid) 1 mg PO DAILY LILLIAN Last Admin: 09/20/18 08:35 Dose: 1 mg Hydromorphone HCl (Dilaudid) 2 mg IVP Q4 PRN PRN Reason: Pain, severe (8-10) Last Admin: 09/20/18 09:38 Dose: 2 mg Hydroxyurea (Hydrea) 500 mg PO Q12 LILLIAN Last Admin: 09/20/18 08:35 Dose: 500 mg - Labs Labs: 09/20/18 05:20 09/20/18 05:20 PT 12.9 Seconds (9.8-13.1) 09/16/18 07:45 INR 1.1 09/16/18 07:45 APTT 32.0 Seconds (25.6-37.1) 09/16/18 07:45 - Head Exam Head Exam: ATRAUMATIC - Eye Exam Eye Exam: Normal appearance - ENT Exam ENT Exam: Mucous Membranes Dry - Respiratory Exam Respiratory Exam: NORMAL BREATHING PATTERN - Cardiovascular Exam Cardiovascular Exam: +S1, +S2 - GI/Abdominal Exam GI & Abdominal Exam: Normal Bowel Sounds Assessment and Plan (1) Sickle cell pain crisis Assessment & Plan: resolving s/p 1U PRBC outpatient f/u Status: Acute (2) Sickle cell anemia Assessment & Plan: folic acid and hydrea Status: Acute
== END 2018-09-20 12:54 | disposition home or self-care (01) | DRG 395 ==
LOC: H.ER 05:55 → H.ERHOLD 09:34 → H.MEDSURG1 11:43
PROVIDERS: ADMIT Family Medicine; ATTEND Family Medicine
PROC: 30233N1 Transfusion of Nonautologous Red Blood Cells into Peripheral Vein, Percutaneous Approach (ICD-10-PCS; principal; 2018-09-19)
DX: D57.00 Hb-SS disease with crisis, unspecified (principal); E87.6 Hypokalemia; Z91.19 Patient's noncompliance with other medical treatment and regimen; J45.20 Mild intermittent asthma, uncomplicated; F17.210 Nicotine dependence, cigarettes, uncomplicated; L29.9 Pruritus, unspecified; T40.2X5A Adverse effect of other opioids, initial encounter; Z91.040 Latex allergy status